=== PATIENT | female | born 1980 | race Caucasian/White ===

== ENCOUNTER 2023-10-24 12:00 | Outpatient (OUT) | payer OTHER, SELFPAY ==
[2023-10-24 12:52] LABS: Basophils Absolute Auto 0.1 10^3/uL (0.0-0.1); Basophils Percent Auto 0.6 % (0.2-2.0); Eosinophils Absolute Auto 0.2 10^3/uL (0.0-0.7); Eosinophils Percent Auto 2.5 % (0.9-7.0); Hematocrit 39.6 % (36.0-48.0); Hemoglobin 12.8 g/dL (12.0-16.0); Immature Granulocytes Abs Auto 0.02 10^3/uL (0.00-0.03); Immature Granulocytes Pct Auto 0.2 % (0.0-0.5); Lymphocytes Absolute Auto 2.4 10^3/uL (1.2-3.8); Lymphocytes Percent Auto 27.5 % (20.5-60.0); Mean Corpuscular HGB Conc 32.3 g/dL (29.9-35.2); Mean Corpuscular Hemoglobin 27.1 pg (26.7-34.0); Mean Corpuscular Volume 83.9 fL (81.0-99.0); Monocytes Absolute Auto 0.6 10^3/uL (0.3-0.8); Monocytes Percent Auto 6.3 % (1.7-12.0); Neutrophils Absolute Auto 5.6 10^3/uL (1.4-6.5); Neutrophils Percent Auto 62.9 % (43.0-75.0); Platelet Count 527 10^3/uL (150-450); Red Blood Count 4.72 10^6/uL (4.20-5.40); Red Cell Distribution Width 14.1 % (11.0-15.0); White Blood Count 8.9 10^3/uL (4.0-11.0)
== END 2023-10-24 12:01 | disposition home or self-care (01) ==
LOC: LAB 12:05
PROVIDERS: PCP Family Medicine; Visit Provider Family Medicine
DX: D72.829 Elevated white blood cell count, unspecified (principal); D50.9 Iron deficiency anemia, unspecified
CPT/HCPCS: 36415; 82728; 85025

== ENCOUNTER 2023-10-26 12:29 | Outpatient (OUT) | payer OTHER, SELFPAY ==
--- OUTSIDE RECORDS SUMMARY | 2023-10-26 12:43 | XMS_ITS | CCD ---
Author Name Unknown Address [address] [facility] [address] [place] [id number] Organization [facility] Care Team Providers Care Shoulder Puncher Name Role Phone PHYSICIAN, DEFAULT Unavailable Unavailable PHYSICIAN, DEFAULT Unavailable Unavailable [place], EHAB A Unavailable Unavailable [place], EHAB A Unavailable Unavailable TAYA ESPINOSA Unavailable Unavailable SUKHWINDER, TAYA Unavailable Unavailable Taya Espinosa Unavailable DR TAYA ESPINOSA Consulting Unavailable ESPINOSA, DR TAYA Valderrama Primary Care Unavailable SUKHWINDER, DR TAYA Valderrama Admitting Unavailable SUKHWINDER, DR TAYA Valderrama Attending Unavailable SUKHWINDER, DR TAYA Valderrama Primary Care Unavailable JASMINE DENG Attending Unavailable JASMINE DENG Consulting Unavailable JASMINE DENG Admitting Unavailable VALERIE GEORGE Consulting Unavailable [place], EHAB Attending Unavailable JASMINE DENG Attending Unavailable Allergies Allergy Classification Reported Allergen(s) Allergy Type Date of Onset Reaction(s) Facility (2 sources) No Known Allergies; Translations: [No Known Allergies] Propensity to adverse reactions (disorder) 7 [facility] Repository (1 source) patient allergy list reviewed by nurse or physicia Propensity to adverse reactions 4 Comment:Done [facility] Other (1 source) Allergies Reconciled Propensity to adverse reactions Unknown [facility] Other (1 source) varenicline; Translations: [VARENICLINE] Drug Allergy 3 [facility] Medications Current Medications Medication Drug Class(es) Dates Sig (Normalized) Sig (Original) amLODIPine 10 mg oral tablet (4 sources) Dihydropyridine Calcium Channel Vannessa take 1 tablet by mouth every twenty-four hours amLODIPine Besylate 10 MG 1 tablet Orally Once a day Active 12 hr buPROPion hydrochloride 150 mg extended release oral tablet (4 sources) Aminoketone take 1 tablet by mouth every twenty-four hours Wellbutrin SR 150 MG 1 tablet in the morning Orally Once a day Active hydroCHLOROthiazide 12.5 mg / losartan potassium 50 mg oral tablet (4 sources) Thiazide Diuretic, Angiotensin 2 Receptor Vannessa take 1 tablet by mouth every twenty-four hours Losartan Potassium-HCTZ 50-12.5 MG 1 tablet Orally Once a day Active Problems Active Problems Problem Classification Problem Date Documented Date Episodic/Chronic Anxiety disorders (1 source) Generalized anxiety disorder; Translations: [Generalized anxiety disorder] Chronic Deficiency and other anemia (1 source) Iron deficiency anemia; Translations: [Iron deficiency anemia, unspecified] Episodic Deficiency and other anemia (1 source) Iron deficiency anemia, unspecified Episodic Diseases of white blood cells (7 sources) Leukocytosis; Translations: [Elevated white blood cell count, unspecified] Onset: 01-06-2023 Chronic Essential hypertension (9 sources) Essential (primary) hypertension; Translations: [Benign essential hypertension] Onset: 04-25-2017 Chronic Hypertension with complications and secondary hypertension (2 sources) Renovascular hypertension; Translations: [Renovascular hypertension] Onset: 10-24-2023 Chronic Malaise and fatigue (5 sources) Other fatigue; Translations: [OTHER FATIGUE] Onset: 01-03-2023 Episodic Other circulatory disease (7 sources) Arterial fibromuscular dysplasia; Translations: [ARTERIAL FIBROMUSCULAR DYSPLASIA] Onset: 05-25-2017 Chronic Other ear and sense organ disorders (1 source) Infective otitis externa; Translations: [Unspecified infective otitis externa] Onset: 08-05-2014 Chronic Other lower respiratory disease (2 sources) Other forms of dyspnea; Translations: [Other forms of dyspnea] Onset: 10-24-2023 Episodic Other skin disorders (1 source) Disorder of skin and/or subcutaneous tissue; Translations: [Disorder of the skin and subcutaneous tissue, unspecified] Episodic Other upper respiratory disease (1 source) Seasonal allergic rhinitis; Translations: [Other seasonal allergic rhinitis] Chronic Other upper respiratory infections (1 source) Chronic sinusitis; Translations: [Chronic sinusitis, unspecified] Chronic Residual codes; unclassified (1 source) Tobacco user; Translations: [Nondependent tobacco use disorder] Episodic Residual codes; unclassified (1 source) Family history of diabetes mellitus; Translations: [Family history of diabetes mellitus] Episodic Substance-related disorders (1 source) Nicotine dependence, unspecified, uncomplicated; Translations: [NICOTINE DEPENDENCE, UNSPECIFIED, UNCOMPLICATED] Onset: 05-25-2017 Chronic Unclassified (2 sources) Unknown / UNK(Unknown) Onset: 05-25-2017 Past or Other Problems Problem Classification Problem Date Documented Da te Episodic/Chronic Other non-traumatic joint disorders (1 source) Hand joint pain; Translations: [Pain in joint, hand] Onset: 12-16-2014 Episodic Other upper respiratory infections (2 sources) Acute pharyngitis; Translations: [Acute pharyngitis, unspecified] Onset: 06-04-2013 Episodic Results Test Name Value Interpretation Reference Range Facility Office Visiton 10-24-2023 Follow-up visit [id number] Ciro [place] 1980 F Date Provider Department Center 10/24/2023 Cristela-DIANNA JACKSON [facility] Family History Problem Relation Age of Onset Heart attack Mother Diabetes Mother Heart attack Father Family Status - Relation Status Age at Mother Father Level of Service:63904 ID OFFICE/OUTPATIENT ESTABLISHED MOD MDM 30 MIN Normal [facility] CBC AUTO DIFFon 01-03-2023 BASO # 0.1 103/ul Normal 0.0-0.1 [facility] Comment on above: Performed By: #### CBC #### [facility] [address] [place] [address] Dr. Quincy Alaniz Basophils/100 WBC (Bld) 0.5 % Normal 0.2-2.0 [facility] Comment on above: Performed By: #### CBC #### [facility] [address] [place] [address] Dr. Quincy Alaniz EO # 0.4 103/ul Normal 0.0-0.7 [facility] Comment on above: Performed By: #### CBC #### [facility] [address] [place] [address] Dr. Quincy Alaniz Eosinophils/100 WBC (Bld) 4.1 % Normal 0.9-7.0 [facility] Comment on above: Performed By: #### CBC #### [facility] [address] [place] [address] Dr. Quincy Alaniz Erythrocyte distribution width (RBC) [Ratio] 15.9 % Critically high 11.0-15.0 [facility] Comment on above: Performed By: #### CBC #### [facility] [address] [place] [address] Dr. Quincy Alaniz Hematocrit (Bld) [Volume fraction] 39.2 % Normal 36.0-48.0 [facility] Comment on above: Performed By: #### CBC #### [facility] [address] [place] [address] Dr. Quincy Alaniz Hemoglobin (Bld) [Mass/Vol] 12.4 g/dL Normal 12.0-16.0 [facility] Comment on above: Performed By: #### CBC #### [facility] [address] [place] [address] Dr. Quincy Alaniz IG # 0.03 10e3/ul Normal 0.00-0.03 [facility] Comment on above: Performed By: #### CBC #### [facility] [address] [place] [address] Dr. Quincy Alaniz IG % 0.3 % Normal 0.0-0.5 [facility] Comment on above: Performed By: #### CBC #### [facility] [address] [place] [address] Dr. Quincy Alaniz LYMPH # 2.9 103/ul Normal 1.2-3.8 [facility] Comment on above: Performed By: #### CBC #### [facility] [address] [place] [address] Dr. Quincy Alaniz Lymphocytes/100 WBC (Bld) 30.3 % Normal 20.5-60.0 [facility] Comment on above: Performed By: #### CBC #### [facility] [address] [place] [address] Dr. Quincy Alaniz MANUAL DIFF REQ NO Normal [facility] Comment on above: Performed By: #### CBC #### [facility] [address] [place] [address] Dr. Quincy Alaniz MCH (RBC) [Entitic mass] 25.6 pg Critically low 26.7-34.0 [facility] Comment on above: Performed By: #### CBC #### [facility] [address] [address] [address] Quincy Alaniz MCHC (RBC) [Mass/Vol] 31.6 g/dL Normal 29.9-35.2 [facility] Comment on above: Performed By: #### CBC #### [facility] [address] [address] [address] Quincy Alaniz MCV (RBC) [Entitic vol] 80.8 fL Critically low 81.0-99.0 [facility] Comment on above: Performed By: #### CBC #### [facility] [address] [place] [address] Dr. Quincy Alaniz MONO # 0.7 103/ul Normal 0.3-0.8 [facility] Comment on above: Performed By: #### CBC #### [facility] [address] [place] [address] Dr. Quincy Alaniz Monocytes/100 WBC (Bld) 7.4 % Normal 1.7-12.0 [facility] Comment on above: Performed By: #### CBC #### [facility] [address] [place] [address] Dr. Quincy Alaniz NEUT # 5.6 103/ul Normal 1.4-6.5 [facility] Comment on above: Performed By: #### CBC #### [facility] [address] [place] [address] Dr. Quincy Alaniz Neutrophils/100 WBC (Bld) 57.4 % Normal 43.0-75.0 [facility] Comment on above: Performed By: #### CBC #### [facility] [address] [address] [address] Quincy Alaniz Platelet mean volume (Bld) [Entitic vol] 8.6 fL Critically low 9.5-13.5 [facility] Comment on above: Performed By: #### CBC #### [facility] [address] [place] [address] Dr. Quincy Alaniz PLT 481 103/ul Critically high 150-450 [facility] Comment on above: Performed By: #### CBC #### [facility] [address] [address] [address] Quincy Alaniz RBC 4.85 106/ul Normal 4.20-5.40 [facility] Comment on above: Performed By: #### CBC #### [facility] [address] [address] [address] Quincy Alaniz WBC 9.7 103/ul Normal 4.0-11.0 [facility] Comment on above: Performed By: #### CBC #### [facility] [address] [address] [address] Quincy Alaniz FERRITINon 01-03-2023 Ferritin [Mass/Vol] 8.0 ng/mL Normal 6.2-137.0 [facility] Comment on above: Performed By: #### FERR #### [facility] [address] [place] [address] Dr. Quincy Alaniz 36on 12-29-2022 36 Please let her know her labs showed her kidney and liver function are normal. Her white blood cells are elevated along with some other blood counts that are abnormal. Please send results to PCP and have patient follow-up with PCP for further evaluation. Her bad cholesterol level (LDL) is elevated. Recommend heart healthy diet (low salt, less red meats and more chicken/fish/turkey, avoid processed and fried foods, more fruits and veggies - Mediterranean diet is a good diet to follow) along with routine exercise (recommend goal of 30 mins moderate intensity 5 days a week). Thank you Normal [facility] Telephoneon 12-29-2022 Telephone [id number] Ciro [place] 1980 F Date Provider Department [facility] Family History Problem Relation Age of Onset Heart attack Mother Diabetes Mother Heart attack Father Family Status - Relation Status Age at Mother Father Normal [facility] CBC AUTO DIFFon 12-16-2022 BASO # 0.1 103/ul Normal 0.0-0.1 [facility] Comment on above: Performed By: #### CBC #### [facility] [address] [place] [address] Dr. Quincy Alaniz Basophils/100 WBC (Bld) 0.3 % Normal 0.2-2.0 [facility] Comment on above: Performed By: #### CBC #### [facility] [address] [place] [address] Dr. Quincy Alaniz EO # 0.4 103/ul Normal 0.0-0.7 [facility] Comment on above: Performed By: #### CBC #### [facility] [address] [place] [address] Dr. Quincy Alaniz Eosinophils/100 WBC (Bld) 1.7 % Normal 0.9-7.0 [facility] Comment on above: Performed By: #### CBC #### [facility] [address] [place] [address] Dr. Quincy Alaniz Erythrocyte distribution width (RBC) [Ratio] 15.1 % Critically high 11.0-15.0 [facility] Comment on above: Performed By: #### CBC #### [facility] [address] [place] [address] Dr. Quincy Alaniz Hematocrit (Bld) [Volume fraction] 39.6 % Normal 36.0-48.0 [facility] Comment on above: Performed By: #### CBC #### [facility] [address] [place] [address] Dr. Quincy Alaniz Hemoglobin (Bld) [Mass/Vol] 12.8 g/dL Normal 12.0-16.0 [facility] Comment on above: Performed By: #### CBC #### [facility] [address] [place] [address] Dr. Quincy Alaniz IG # 0.09 10e3/ul Critically high 0.00-0.03 [facility] Comment on above: Performed By: #### CBC #### [facility] [address] [place] [address] Dr. Quincy Alaniz IG % 0.4 % Normal 0.0-0.5 [facility] Comment on above: Performed By: #### CBC #### [facility] [address] [place] [address] Dr. Quincy Alaniz LYMPH # 2.4 103/ul Normal 1.2-3.8 [facility] Comment on above: Performed By: #### CBC #### [facility] [address] [place] [address] Dr. Quincy Alaniz Lymphocytes/100 WBC (Bld) 11.5 % Critically low 20.5-60.0 [facility] Comment on above: Performed By: #### CBC #### [facility] [address] [place] [address] Dr. Quincy Alaniz MANUAL DIFF REQ NO Normal [facility] Comment on above: Performed By: #### CBC #### [facility] [address] [place] [address] Dr. Quincy Alaniz MCH (RBC) [Entitic mass] 25.7 pg Critically low 26.7-34.0 [facility] Comment on above: Performed By: #### CBC #### [facility] [address] [place] [address] Dr. Quincy Alaniz MCHC (RBC) [Mass/Vol] 32.3 g/dL Normal 29.9-35.2 [facility] Comment on above: Performed By: #### CBC #### [facility] [address] [place] [address] Dr. Quincy Alaniz MCV (RBC) [Entitic vol] 79.4 fL Critically low 81.0-99.0 [facility] Comment on above: Performed By: #### CBC #### [facility] [address] [place] [address] Dr. Quincy Alaniz MONO # 1.2 103/ul Critically high 0.3-0.8 [facility] Comment on above: Performed By: #### CBC #### [facility] [address] [place] [address] Dr. Quincy Alaniz Monocytes/100 WBC (Bld) 5.4 % Normal 1.7-12.0 [facility] Comment on above: Performed By: #### CBC #### [facility] [address] [place] [address] Dr. Quincy Alaniz NEUT # 17.2 103/ul Critically high 1.4-6.5 [facility] Comment on above: Performed By: #### CBC #### [facility] [address] [address] [address] Quincy Alaniz Neutrophils/100 WBC (Bld) 80.7 % Critically high 43.0-75.0 [facility] Comment on above: Performed By: #### CBC #### [facility] [address] [address] [address] Quincy Alaniz Platelet mean volume (Bld) [Entitic vol] 8.6 fL Critically low 9.5-13.5 [facility] Comment on above: Performed By: #### CBC #### [facility] [address] [place] [address] Dr. Quincy Alaniz PLT 530 103/ul Critically high 150-450 [facility] Comment on above: Performed By: #### CBC #### [facility] [address] [place] [address] Dr. Quincy Alaniz RBC 4.99 106/ul Normal 4.20-5.40 [facility] Comment on above: Performed By: #### CBC #### [facility] [address] [place] [address] Dr. Quincy Alaniz WBC 21.3 103/ul Critically high 4.0-11.0 [facility] Comment on above: Performed By: #### CBC #### [facility] [address] [place] [address] Dr. Quincy Alaniz LIPID PROFILEon 12-16-2022 CHOL-HDL RATIO NORM SEE BELOW Normal [facility] Comment on above: Result Comment: 3.3 - 4.4 LOW RISK 4.4 - 7.1 AVERAGE RISK 7.1 - 11.0 MODERATE RISK >11.0 HIGH RISK Performed By: #### C MP, LIPID #### [facility] [address] [place] [address] Dr. Quincy Alaniz Cholesterol [Mass/Vol] 180 mg/dL Normal <=200 [facility] Comment on above: Performed By: #### CMP, LIPID #### [facility] [address] [place] [address] Dr. Quincy Alaniz Cholesterol in HDL [Mass/Vol] 29 mg/dL Critically low 40-60 [facility] Comment on above: Performed By: #### CMP, LIPID #### [facility] [address] [place] [address] Dr. Quincy Alaniz Cholesterol in LDL [Mass/Vol] 132.8 mg/dL Normal [facility] Comment on above: Performed By: #### CMP, LIPID #### [facility] [address] [place] [address] Dr. Quincy Alaniz Cholesterol.tota l/Cholesterol in HDL [Mass ratio] 6.2 {ratio} Normal [facility] Comment on above: Performed By: #### CMP, LIPID #### [facility] [address] [place] [address] Dr. Quincy Alaniz HDL NORMAL > or = 60 mg/dl - LO W CARDIOVASCULAR RISK <40 mg/dl - HIGH CARDIOVASCULAR RISK Normal [facility] Comment on above: Performed By: #### CMP, LIPID #### [facility] [address] [place] [address] Dr. Quincy Alaniz LDL CALC NORMAL SEE BELOW Normal [facility] Comment on above: Result Comment: <100 mg/dl OPTIMAL 100 - 129 mg/dl NEAR OR ABOVE OPTIMAL 130 - 159 mg/dl BORDERLINE HIGH 160 - 189 mg/dl HIGH >190 mg/dl VERY HIGH Performed By: #### C MP, LIPID #### [facility] [address] [place] [address] Dr. Quincy Alaniz Triglyceride [Mass/Vol] 91 mg/dL Normal <=150 [facility] Comment on above: Performed By: #### CMP, LIPID #### [facility] [address] [place] [address] Dr. Qunicy Alaniz VLDL CALC 18.2 mg/dL Normal [facility] Comment on above: Performed By: #### CMP, LIPID #### [facility] [address] [place] [address] Dr. Quincy Alaniz PROF 14(COMP METB)on 023 Albumin [Mass/Vol] 3.7 g/dL Normal 3.4-5.0 [facility] Comment on above: Performed By: #### CMP, LIPID #### [facility] [address] [address] [address] Quincy Alaniz Albumin/Globulin [Mass ratio] 0.8 {ratio} Normal [facility] Comment on above: Performed By: #### CMP, LIPID #### [facility] [address] [address] [address] Quincy Alaniz ALP [Catalytic activity/Vol] 105 U/L Normal 46-116 [facility] Comment on above: Performed By: #### CMP, LIPID #### [facility] [address] [address] [address] Quincy Alaniz ALT [Catalytic activity/Vol] 24 U/L Normal 14-59 [facility] Comment on above: Performed By: #### CMP, LIPID #### [facility] [address] [place] [address] Dr. Quincy Alaniz Anion gap [Moles/Vol] 11.1 mmol/L Normal [facility] Comment on above: Performed By: #### CMP, LIPID #### [facility] [address] [place] [address] Dr. Quincy Alaniz AST [Catalytic activity/Vol] 14 U/L Critically low 15-37 [facility] Comment on above: Performed By: #### CMP, LIPID #### [facility] [address] [place] [address] Dr. Quincy Alaniz Bilirubin [Mass/Vol] 0.3 mg/dL Normal 0.2-1.0 [facility] Comment on above: Performed By: #### CMP, LIPID #### [facility] [address] [place] [address] Dr. Quincy Alaniz Calcium [Mass/Vol] 9.2 mg/dL Normal 8.5-10.1 [facility] Comment on above: Performed By: #### CMP, LIPID #### [facility] [address] [place] [address] Dr. Quincy Alaniz Chloride [Moles/Vol] 100 mmol/L Normal 98-107 [facility] Comment on above: Performed By: #### CMP, LIPID #### [facility] [address] [place] [address] Dr. Quincy Alaniz CO2 [Moles/Vol] 26.8 mmol/L Normal 21.0-32.0 [facility] Comment on above: Performed By: #### CMP, LIPID #### [facility] [address] [place] [address] Dr. Quincy Alaniz Creatinine [Mass/Vol] 0.68 mg/dL Normal 0.55-1.02 [facility] Comment on above: Performed By: #### CMP, LIPID #### [facility] [address] [place] [address] Dr. Quincy Alaniz EGFR-AF CITIZEN OF [place] >60 Normal >=60 [facility] Comment on above: Performed By: #### CMP, LIPID #### [facility] [address] [place] [address] Dr. Quincy Alaniz EGFR-NON AF CITIZEN OF [place] >60 Normal >=60 [facility] Comment on above: Performed By: #### CMP, LIPID #### [facility] [address] [place] [address] Dr. Quincy Alaniz Globulin (S) [Mass/Vol] 4.9 g/dL Normal [facility] Comment on above: Performed By: #### CMP, LIPID #### [facility] [address] [place] [address] Dr. Quincy Alaniz Glucose [Mass/Vol] 113 mg/dL Critically high 74-106 [facility] Comment on above: Performed By: #### CMP, LIPID #### [facility] [address] [place] [address] Dr. Quincy Alaniz Potassium [Moles/Vol] 3.9 mmol/L Normal 3.5-5.1 [facility] Comment on above: Performed By: #### CMP, LIPID #### [facility] [address] [place] [address] Dr. Quincy Alaniz Protein [Mass/Vol] 8.6 g/dL Critically high 6.4-8.2 [facility] Comment on above: Performed By: #### CMP, LIPID #### [facility] [address] [place] [address] Dr. Quincy Alaniz Sodium [Moles/Vol] 134 mmol/L Critically low 136-145 [facility] Comment on above: Performed By: #### CMP, LIPID #### [facility] [address] [place], [place] [address] Dr. Quincy Alaniz Urea nitrogen [Mass/Vol] 9.0 mg/dL Normal 7.0-18.0 [facility] Comment on above: Performed By: #### CMP, LIPID #### [facility] [address] [place], [place] [address] Dr. Quincy Alaniz Urea nitrogen/Creatin ine [Mass ratio] 13.2 mg/mg Normal [facility] Comment on above: Performed By: #### CMP, LIPID #### [facility] [facility] [address], [place] [address] Dr. Quincy Alaniz US KIDNEYSon 12-16-2022 US KIDNEYS US KIDNEYS: 3 10:00 AM EDT CLINICAL HISTORY: 42 years old Female with Essential hypertension. TECHNIQUE: Bilateral renal ultrasound is performed, with transverse and longitudinal images submitted. COMPARISON: None FINDINGS: The right kidney measures 12.2 x 5.8 x 4.4 cm, the left kidney measures 11.1 x 4.5 x 4.7 cm in greatest lengthwise, AP, and transverse dimensions respectively. The right and left kidneys have a normal sonographic appearance. No renal mass or hydronephrosis is seen. Corticomedullary differentiation is preserved bilaterally. There is a calculus in the right kidney measuring up to 0.5 cm. IMPRESSION: Right nephrolithiasis without hydronephrosis. Electronically authenticated by: VALERIE GEORGE Date: 2022-12-16 13:08 Normal [facility] Office Visiton 12-09-2022 Follow-up visit [id number] Ciro Washington 1980 F Date Provider Department Center 12/09/2022 JASMINE ADAMS [facility] Family History Problem Relation Age of Onset Heart attack Mother Diabetes Mother Heart attack Father Family Status - Relation Status Age at Mother Father Level of Service:[id number] ID OFFICE/OUTPATIENT ESTABLISHED MOD MDM 30-39 MIN Reason for Visit and Comments: Follow-up [[id number]] - Pt is here for 1 year F/U Normal [facility] BASIC METABOLIC PANELon 09-2 Calcium 8.6 mg/dL Normal 8.6-10.3 [facility] Comment on above: Order Comment: No: Do not add to previou s draw Performed By: #### 0 0071 ####[facility] [place] [address], [facility] Chloride 107 mmol/L Normal 98-107 [facility] Comment on above: Order Comment: No: Do not add to previou s draw Performed By: #### 0 0071 ####[facility] [place] [address], [facility] CO2 21 mmol/L Normal 21-31 [facility] Comment on above: Order Comment: No: Do not add to previou s draw Performed By: #### 0 0071 ####[facility] [place] [address], [facility] Creatinine 0.69 mg/dL Normal 0.60-1.20 [facility] Comment on above: Order Comment: No: Do not add to previou s draw Performed By: #### 0 0071 ####[facility] [place] [address], [facility] eGFR (black) mL/min/{1.73_m2} Normal >60 [facility] Comment on above: Order Comment: No: Do not add to previou s draw Performed By: #### 0 0071 ####[facility] [place] [address], [facility] eGFR (non-black) mL/min/{1.73_m2} Normal >60 [facility] e [facility] Comment on above: Order Comment: No: Do not add to previou s draw Performed By: #### 0 0071 ####[facility] [place] [address], [place] Glucose mass conc 95 mg/dL Normal 70-100 [facility] Comment on above: Order Comment: No: Do not add to previou s draw Performed By: #### 0 0071 ####[facility] Potassium molar conc 4.6 mmol/L Normal 3.5-5.1 [facility] Comment on above: Order Comment: No: Do not add to previou s draw Performed By: #### 0 0071 ####[facility] [facility].[address] Sodium 134 mmol/L Low 136-145 [facility] Comment on above: Order Comment: No: Do not add to previou s draw Performed By: #### 0 0071 ####[facility] [facility].[address] Urea nitrogen 11 mg/dL Normal 7-25 [facility] Comment on above: Order Comment: No: Do not add to previou s draw Performed By: #### 0 0071 ####[facility] [facility].[address] CBC W/DIFFon 05-26-2017 Basophils Auto #/vol (Bld) 0.5 % Normal 0.0-2.0 [facility] Comment on above: Order Comment: No: Do not add to previou s draw Performed By: #### 5 0103 ####[facility] [facility].[address] Eosinophils/100 leukocytes 2.4 % Normal 0.0-5.0 [facility] Comment on above: Order Comment: No: Do not add to previou s draw Performed By: #### 5 0103 ####[facility] Erythrocyte distribution width Auto Ratio (RBC) 16.8 % Normal 11.5-16.9 [facility] Comment on above: Order Comment: No: Do not add to previou s draw Performed By: #### 5 0103 ####[facility] Erythrocytes (RBC) 4.30 mill/mm3 Normal 3.50-5.50 [facility] Comment on above: Order Comment: No: Do not add to previou s draw Performed By: #### 5 0103 ####[facility].[address] Hematocrit (HCT) 35.3 % Low 36.0-48.0 [facility] Comment on above: Order Comment: No: Do not add to previou s draw Performed By: #### 5 0103 ####[facility].[address] Hemoglobin mass conc (Bld) 11.5 g/dL Low 12.0-15.0 [facility] Comment on above: Order Comment: No: Do not add to previou s draw Performed By: #### 5 0103 ####[facility] [facility].[address] Lymphocytes/100 leukocytes 27.9 % Normal 20.0-40.0 [facility] Comment on above: Order Comment: No: Do not add to previou s draw Performed By: #### 5 0103 ####[facility] [facility].[address] MCH 26.8 pg Normal 24.0-32.0 [facility] Comment on above: Order Comment: No: Do not add to previou s draw Performed By: #### 5 0103 ####[facility] [facility].[address] MCHC mass conc (RBC) 32.6 g/dL Normal 32.0-36.0 [facility] Comment on above: Order Comment: No: Do not add to previou s draw Performed By: #### 5 0103 ####[facility] [place] [address], [facility] MCV 82.2 fL Normal 80.0-100.0 [facility] Comment on above: Order Comment: No: Do not add to previou s draw Performed By: #### 5 0103 ####[facility] [place] [address], [facility] METHOD Normal RBC Morphology Normal [facility] Comment on above: Order Comment: No: Do not add to previou s draw Performed By: #### 5 0103 ####[facility] [place] [address], [facility] MONOS 9.3 % High 2-8 [facility] Comment on above: Order Comment: No: Do not add to previou s draw Performed By: #### 5 0103 ####[facility] [place] [address], [facility] Neutrophils/100 leukocytes 59.9 % Normal 50-70 [facility] Comment on above: Order Comment: No: Do not add to previou s draw Performed By: #### 5 0103 ####[facility] [place] [address], [facility] PLAT CNT 237 Thou/mm3 Normal 100-400 [facility] Comment on above: Order Comment: No: Do not add to previou s draw Performed By: #### 5 0103 ####[facility] [place] [address], [facility] WBC (Leukocytes) 7.2 Thou/mm3 Normal 4.0-10.0 [facility] Comment on above: Order Comment: No: Do not add to previou s draw Performed By: #### 5 0103 ####[facility] [place] [address], [facility] Cardiovascular Lab Reporton 05-26-2017 Cardiovascular Lab Report [facility]: [id number] Physician: Dianna JacksonDepartment of M.D.Medicine Service Date: 05/25/2017Division of Birthdate: 1980Cardiology Room #: 3AB [id number] [facility] [address] [place], [place] [address]Odnvs Fax Cardiovascular Laboratory ReportFINAL IMPRESSIONS:1. 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 No evidence of aneurysmal dilation or stenosis in the abdominal aorta.RECOMMENDATIONS:1. Aggressive cardiovascular risk factor modification.2. Optimization of medical management; the patient's antihypertensive regimen will be continued for now. Consider weaning off the medicine depending on her response to balloon angioplasty.3. Follow up with Dr. Mena or myself in the [facility] in the next 3-4 weeks.4. Follow up with Dr. Espinosa as scheduled.PROCEDURES:1. Catheter placement in the abdominal aorta.2. Abdominal aortography.3. Bilateral selective renal angiography.4. Balloon angioplasty of the right renal artery.5. Placement of a 6-Haitian MynxGrip closure device.METHODS: After risks, benefits, and alternatives were explained, writteninformed consent was obtained. The patient was prepped and draped in theusual sterile fashion over both groins. Using 1% lidocaine solution localinfiltration, anesthesia was achieved. Using a modified Seldingertechnique, access to the right common femoral artery was obtained utilizinga micropuncture kit. A 5-Haitian 11-cm sheath was inserted withoutdifficulty. Baseline femoral angiography was performed.A 5-Haitian Uni-Flush catheter was advanced over a J-wire and positioned inthe abdominal aorta. Abdominal aortography was performed under digitalsubtraction.A 5-Haitian JR4 diagnostic catheter was used for bilateral renalangiography. After reviewing the images, it was elected to proceed with aninterventional procedure.The 5-Haitian sheath was upsized to a 6-Haitian 11-cm sheath. A 6-Haitian IMcatheter was advanced over a J-wire and engaged into the right renalartery. A 0.014 Runthrough NS wire was advanced through the catheteracross the suspect stenoses and positioned distally. Balloon angioplastywas subsequently performed using a 5 x 20 Rafael balloon. The balloonwas removed. Angiography was repeated, which showed a markedly improvedresult. The wire was removed. Final angiography showed excellent flowinto the kidney vessels with no evidence of dye extravasation, vesseltrauma, or thrombosis. The catheter was removed.A 6-Haitian MynxGrip closure device was deployed per protocol, achievingoptimal hemostasis. Overall, the patient tolerated the procedure well.There were no overt complications. [facility]FINDINGS: HEMODYNAMICS: AO 126/72 (97).ABDOMINAL AORTOGRAPHY: This shows no significant stenotic or aneurysmalsegments. There appeared to be 2 renal vessels on the left and a singlerenal vessel on the right.RENAL ANGIOGRAPHY: Left Renal Angiography: There are a superior mainrenal artery and an inferior accessory renal artery. The accessory renalshows mild fibromuscular dysplasia with beading in the midportion of thevessel. There is a brisk nephrogram. No filling defects are seen.Right Renal Angiography: There is a single renal artery. There appears cristel significant beading in the midportion of the vessel, highly suggestiveof fibromuscular dysplasia. There is a brisk nephrogram pre and postangioplasty. Angioplasty of the lesion was performed using a 5 x 20Sterling balloon. Final images show excellent contrast filling with noextravasation, no thrombosis or vessel trauma.Limited femoral angiography shows no significant plaque and anatomysuitable for a closure device.INDICATIONS: Ms. Washington is a 36-year-old woman who developed new onsethypertension with systolic blood pressures in the 220 range. RenalDopplers suggested elevated velocities in the mid renal artery. She wasreferred for renal angiography plus or minus revascularization forsuspected fibromuscular dysplasia given her age and demographics. Findingsand management strategies are outlined above.Electronically Signed by:Dianna Jackson M.D. 06/14/2017 12:10 P Dianna Jackson M.D.Date Dict: 05/25/2017/02:08 Thao/Dianna Jackson M.D.Date Trans: 05/26/2017 05:38 A/EstellaN_[id number]: Taya Espinosa M.D. [address] [place] [id number] Sima Mena M.D. [address] [address] [facility] Vital Signs Date Time Vital Sign Value Performing Clinician Facility 01-03-2023 15:45-0400 Body height 154.94 cm Taya Espinosa Other [facility] Other 01-03-2023 15:45-0400 Body mass index (BMI) [Ratio] 25.13 kg/m2 Taya Espinosa Other [facility] Other 01-03-2023 15:45-0400 Body weight 60.33 kg Taya Espinosa Other [facility] Other 01-03-2023 15:45-0400 Diastolic blood pressure 68 mm[Hg] Taya Espinosa Other [facility] Other 01-03-2023 15:45-0400 SaO2% (BldA) [Mass fraction] 97 % Taya Espinosa Other [facility] Other 01-03-2023 15:45-0400 Systolic blood pressure 116 mm[Hg] Taya Espinosa Other [facility] Other Encounters Encounter Date Encounter Type Care Provider Facility Start: 10-24-2023 End: 10-24-2023 ambulatory DIANNA JACKSON [facility] Start: 10-06-2023 End: 10-06-2023 ambulatory Taya Espinosa Other [facility] Other Start: 10-06-2023 Telephone encounter Taya Espinosa [facility] Start: 01-07-2023 End: 01-07-2023 ambulatory Taya Espinosa Other [facility] Other Start: 01-07-2023 Telephone encounter Taya Espinosa [facility] Start: 01-05-2023 End: 01-05-2023 ambulatory Taya Espinosa Other [facility] Other Start: 01-05-2023 Telephone encounter Taya Espinosa [facility] Start: 01-03-2023 End: 01-04-[address] TAYA ESPINOSA [facility] [employer] Other Start: 01-03-2023 Office outpatient visit 15 minutes Taya Espinosa [facility] Start: 12-16-2022 End: 12-17-[address] TAYA ESPINOSA Facility: Start: 12-09-2022 End: 12-09-2022 ambulatory [facility] Start: 05-25-2017 End: 05-26-2017 Ambulatory DARAB Tiffanie JACKSON Facility:[facility] Start: 05-11-2017 End: 05-12-2017 Ambulatory DEFAULT PHYSICIAN Facility:[facility] Immunizations Immunization Date Immunization Notes Care Provider Fa flavio 03-20-2017 tetanus toxoid, reduced diphtheria toxoid, and acellular pertussis vaccine, adsorbed Taya Espinosa Other [facility] Other 03-20-2017 diphtheria, tetanus toxoids and acellular pertussis vaccine, unspecified formulation Taya Espinosa Other [facility] Other Payers Date Payer Category Payer Private Health Insurance [id number] 1980 Unknown [id number] [id number] 1980 Unknown [id number] 1958 Unknown [id number] Unknown Social History Date Type Detail Facility Unknown if ever smoked [facility] Other Sex Assigned At Sex Assigned At Bir th [facility] Other Progress note 10-24-2023 Note Date & Type Note Facility 10-24-2023 Note [facility] Cardiology Clinic Note Chief Complaint: Patient here for 10 mo follow up fibromuscular dysplasia of right renal artery and hypertension. Had renal US and labs after last apt in December 2022. She will have labs drawn after apt today for PCP to follow up on elevated WBC. Patient continues to deny chest pain, SOB, palpitations, and lightheadedness/syncope. HPI: Wayne Washington is a 43 y.o. female PMHx: HTN, fibromuscular dysplasia of wall of renal artery s/p RA stent, COVID-19 12/2020 She denies any changes since last seen. BP at home typically running 130s/80s. No current exercise routine. She is on her feet at lot at work along with keeping busy with things at home. Denies CP, dyspnea, DAO, orthopnea, PND, palpitations, dizziness/lightheadedness, lower extremity edema, syncope. She continues to smoke, she is interested in quitting. UPDATE 10/24/2023 Doing well; blood pressure is controlled as long as she takes her medications Has had mild shortness of breath and lower extremity edema intermittently No significant chest pain Cardiology ROS: Review of Systems Cardiovascular: Positive for dyspnea on exertion (intermittent, resolves by morning). All other systems reviewed and are negative. Past Medical History She has a past medical history of Diabetes mellitus ([facility]) and Hypertension. Surgical History She has no past surgical history on file. Social History She reports that she has been smoking cigarettes. She has a 7.50 pack-year smoking history. She does not have any smokeless tobacco history on file. She reports current alcohol use. No history on file for drug use. Family History Family History Problem Relation Name Age of Onset Heart attack Mother Diabetes Mother Heart attack Father Allergies Chantix [varenicline] Medications Current Outpatient Medications: amLODIPine (Norvasc) 10 mg tablet, Take 1 tablet (10 mg) by mouth in the morning., Disp: 90 tablet, Rfl: 3 buPROPion SR (Wellbutrin SR) 150 mg 12 hr tablet, Take 1 tablet (150 mg) by mouth in the morning and at bedtime. Do not crush, chew, or split. *Start by taking 1 tablet daily for 3 days then increase to twice daily*, Disp: 60 tablet, Rfl: 11 losartan (Cozaar) 50 mg tablet, losartan 50 mg tablet TAKE ONE TABLET BY MOUTH DAILY DIRECTED, Disp: 90 tablet, Rfl: 3 Last Recorded Vitals BP 114/78 (BP Location: Left arm, Patient Position: Sitting) Pulse 80 Ht 1.575 m (5' 2 ) Wt 59.4 kg (131 lb) SpO2 98% BMI 23.96 kg/m??? Physical Examination: GENERAL: alert and oriented x3, well developed, in no acute distress. HEAD: atraumatic, normocephalic. EYES: SABRINA, EOMI. NECK: trachea midline, no JVD present, no carotid bruits present. CARDIAC: S1, S2 present. RRR. No murmur, rubs, or gallops. RESPIRATORY: CTAB, no increased effort of breathing, no rales, rhonchi, or wheezing. ABDOMEN: soft, nontender, nondistended. EXTREMITIES: no lower extremity edema, peripheral pulses are 2+ bilaterally. No rash/skin discoloration present. NEURO: strength/sensation equal and symmetric in bilateral upper and lower extremities. PSYCH: appropriate mood, affect, and judgement. Echo 05/2017: EF greater than 55%, normal diastolic function, no significant valvular abnormalities Cardiovascular Laboratory Report (05/25/[address] Jackson) FINAL IMPRESSIONS: 1. Successful balloon angioplasty of fibromuscular dysplastic lesion in the right renal artery. 2. Evidence of fibromuscular dysplasia in a small accessory left renal artery. 3. No evidence of aneurysmal dilation or stenosis in the abdominal aorta. RECOMMENDATIONS: 1. Aggressive cardiovascular risk factor modification. 2. Optimization of medical management; the patient's antihypertensive regimen will be continued for now. Consider weaning off the medicine depending on her response to balloon angioplasty. 3. Follow up with Dr. Mena or myself in the [facility] in the next 3-4 weeks. 4. Follow up with Dr. Espinosa as scheduled. PROCEDURES: 1. Catheter placement in the abdominal aorta. 2. Abdominal aortography. 3. Bilateral selective renal angiography. 4. Balloon angioplasty of the right renal artery. 5. Placement of a 6-Haitian MynxGrip closure device. Assessment: Fibromuscular dysplasia of the right renal artery s/p balloon angioplasty Essential hypertension Dyspnea on exertion Leg swelling Smoker Plan: Continue current medical therapy which includes an angiotensin receptor vannessa and a calcium channel vannessa She is to monitor her blood pressure at home and let us know of any significant fluctuations At this juncture, given absence of significant symptoms, and no concerns regarding blood pressure control, would not pursue further renal testing A complete echocardiogram given her shortness of breath is warranted Return to clinic in 1 year or sooner should problems arise Dianna Jackson MD, MPH (more content not included)... [facility] Evaluation note 10-06-2023 Note Date & Type Note Facility 10-06-2023 Evaluation note Encounter Date Diagnosis Assessment Notes Oct, Leukocytosis, unspecified type (ICD-10 - D72.829) Oct, Iron deficiency anemia, unspecified iron deficiency anemia type (ICD-10 - D50.9) [facility] Other Evaluation note 01-03-2023 Note Date & Type Note Facility 01-03-2023 Evaluation note Encounter Date Diagnosis Assessment Notes January, Leukocytosis, unspecified type (ICD-10 - D72.829) Handwrote lab order to repeat CBC and ferritin. If referral needed, pt chooses the [facility] physician at the [facility]. January, Fatigue, unspecified type (ICD-10 - R53.83) Denies poor sleep problems or other issues. Reviewed labs, meds and d/w Wayne. [facility] Other Progress note 12-09-2022 Note Date & Type Note Facility 12-09-2022 Note [facility] SUBJECTIVE Chief Complaint Patient presents with Follow-up Pt is here for 1 year F/U Wayne Monroyley is a 42 y.o. female here for follow-up. HPI PMHx: HTN, fibromuscular dysplasia of wall of renal artery s/p RA stent, COVID-19 12/2020 She denies any changes since last seen. BP at home typically running 130s/80s. No current exercise routine. She is on her feet at lot at work along with keeping busy with things at home. Denies CP, dyspnea, DAO, orthopnea, PND, palpitations, dizziness/lightheadedness, lower extremity edema, syncope. She continues to smoke, she is interested in quitting. Patient Active Problem List Diagnosis Fibromuscular dysplasia of right renal artery (CMS/HCC) Past Medical History: Diagnosis Date Diabetes mellitus (CMS/HCC) Hypertension Family History Problem Relation Name Age of Onset Heart attack Mother Diabetes Mother Heart attack Father Social History Tobacco Use Smoking status: Every Day Packs/day: 0.50 Years: 15.00 Pack years: 7.50 Types: Cigarettes Substance Use Topics Alcohol use: Yes Allergies Allergen Reactions Chantix [Varenicline] Other Intolerance, vivid dreams, mood swings, irritability Review of Systems Constitutional: Negative for chills, decreased appetite, fever, malaise/fatigue and weight gain. Cardiovascular: Negative for chest pain, claudication, dyspnea on exertion, irregular heartbeat, leg swelling, near-syncope, orthopnea, palpitations, paroxysmal nocturnal dyspnea and syncope. OBJECTIVE Visit Vitals BP 131/85 (BP Location: Left arm, Patient Position: Sitting) Pulse 88 Wt 59.6 kg (131 lb 6.4 oz) SpO2 98% BMI 24.03 kg/m??? Smoking Status Every Day BSA 1.61 m??? Medications: Current Outpatient Medications: amLODIPine (Norvasc) 10 mg tablet, Take 1 tablet (10 mg) by mouth in the morning., Disp: 90 tablet, Rfl: 3 buPROPion SR (Wellbutrin SR) 150 mg 12 hr tablet, Take 1 tablet (150 mg) by mouth in the morning and at bedtime. Do not crush, chew, or split. *Start by taking 1 tablet daily for 3 days then increase to twice daily*, Disp: 60 tablet, Rfl: 11 losartan (Cozaar) 50 mg tablet, losartan 50 mg tablet TAKE ONE TABLET BY MOUTH DAILY DIRECTED, Disp: 90 tablet, Rfl: 3 Physical Exam Vitals reviewed. Constitutional: Appearance: Normal appearance. She is normal weight. HENT: Head: Normocephalic and atraumatic. Right Ear: External ear normal. Left Ear: External ear normal. Eyes: Extraocular Movements: Extraocular movements intact. Conjunctiva/sclera: Conjunctivae normal. Pupils: Pupils are equal, round, and reactive to light. Neck: Vascular: No carotid bruit. Cardiovascular: Rate and Rhythm: Normal rate and regular rhythm. Pulses: Normal pulses. Heart sounds: Normal heart sounds. Pulmonary: Effort: Pulmonary effort is normal. Breath sounds: Normal breath sounds. Abdominal: General: Bowel sounds are normal. Palpations: Abdomen is soft. Musculoskeletal: Cervical back: Neck supple. Right lower leg: No edema. Left lower leg: No edema. Skin: General: Skin is warm and dry. Neurological: General: No focal deficit present. Mental Status: She is alert and oriented to person, place, and time. Psychiatric: Mood and Affect: Mood normal. Behavior: Behavior normal. Thought Content: Thought content normal. Judgment: Judgment normal. Labs/Testing/Procedures: Echo 05/2017: EF greater than 55%, normal diastolic function, no significant valvular abnormalities Cardiovascular Laboratory Report (05/25/[address] Jackson) FINAL IMPRESSIONS: 1. Successful balloon angioplasty of fibromuscular dysplastic lesion in the right renal artery. 2. Evidence of fibromuscular dysplasia in a small accessory left renal artery. 3. No evidence of aneurysmal dilation or stenosis in the abdominal aorta. RECOMMENDATIONS: 1. Aggressive cardiovascular risk factor modification. 2. Optimization of medical management; the patient's antihypertensive regimen will be continued for now. Consider weaning off the medicine depending on her response to balloon angioplasty. 3. Follow up with Dr. Mena or myself in the [facility] in the next 3-4 weeks. 4. Follow up with Dr. Espinosa as scheduled. PROCEDURES: 1. Catheter placement in the abdominal aorta. 2. Abdominal aortography. 3. Bilateral selective renal angiography. 4. Balloon angioplasty of the right renal artery. 5. Placement of a 6-Haitian MynxGrip closure device. ASSESSMENT/PLAN: Diagnosis Plan 1. Fibromuscular dysplasia of right renal artery (CMS/HCC) Lipid panel Comprehensive metabolic panel CBC Vascular US renal artery duplex complete 2. Essential hypertension amLODIPine (Norvasc) 10 mg tablet losartan (Cozaar) 50 mg tablet Lipid panel Comprehensive metabolic panel CBC Vascular US renal artery duplex complete 3. Smoking trying to quit buPROPion SR (We (more content not included)... [facility] Evaluation note Note Date & Type Note Facility Evaluation note No Information [facility] [employer] Other History general Narrative - Reported Note Date & Type Note Facility History general Narrative - Reported Type Surgical History tubal ligation [facility] Other Summary Purpose Family History No Family History Records FoundNo Family History Records FoundNo Family History Records Found Advance Directives No Advanced Directives Records FoundNo Advanced Directives Records FoundNo Advanced Directives Records Found Additional Source Comments INFORMATION SOURCE (unrecogn ized section and content) DATE CREATED AUTHOR 02/28/[address] [facility] DATE CREATED AUTHOR AUTHOR'S ORGANIZ ATION 01/07/[address] [facility] DATE CREATED AUTHOR AUTHOR'S ORGANIZ ATION 10/25/2023 [facility] REASON FOR VISIT (unrecogniz ed section and content) Blood Work Discussionlabslab resultslabs FOR RECORDS PERTAINING TO PATIENTS WHO ARE OR HAVE BEEN ENROLLED IN A CHEMICAL DEPENDENCY/SUBSTANCEABUSE PROGRAM, SOME INFORMATION MAY BE OMITTED. This clinical summary was aggregated from multiple sources. Caution should be exercised in using it in the provision of clinical care. This summary normalizes information from multiple sources, and as a consequence, information in this document may materially change the coding, format and clinical context of patient data. In addition, data may be omitted in some cases. CLINICAL DECISIONS SHOULD BE BASED ON THE PRIMARY CLINICAL RECORDS. [employer] provides no warranty or guarantee of the accuracy or completeness of information in this document.
--- NOTE | 2023-10-26 13:00 | CA_ITS ---
Patient Name: DIANE MAHONEY MR#: [id number] : 1980 Exam Date: 10/26/2023 Ordering Doctor: DR BRANDON LEACH M.D. ECHOCARDIOGRAM REPORT PROCEDURE: CA ECHO DOPPLER COMPLETE INDICATIONS: Arterial fibromuscular dysplasia, HTN, Dyspnea, smoker COMPARISON: None. DESCRIPTION: COMPLETE ECHOCARDIOGRAM Real-time transthoracic echocardiography with 2D, M-mode, spectral and color flow Doppler performed. QUALITY: Technical quality was good. 61 , 130#, BSA 1.57 m2 LEFT VENTRICLE: Normal chamber size. Normal left ventricular wall thickness. Normal systolic function. LV EF: Normal left ventricular ejection fraction, (>55%). DIASTOLIC: Normal diastolic function. ATRIAL SEPTUM: Visually appears intact. LEFT ATRIUM: Normal chamber size. RIGHT ATRIUM: Normal chamber size. RIGHT VENTRICLE: Normal chamber size. Normal right ventricular systolic function. TRICUSPID VALVE: Normal mobility and thickness. No stenosis with no regurgitation. Unable to assess right-sided pressures due to lack of measurable tricuspid regurgitation. MITRAL VALVE: Normal mobility and thickness. No evidence of mitral valve stenosis. There is no mitral annular calcification. No mitral regurgitation. AORTIC VALVE: Normal trileaflet appearance. No visible sclerosis. Normal leaflet mobility. No evidence of aortic valve stenosis. No aortic regurgitation. AORTIC ROOT: Normal diameter and appearance. PULMONIC VALVE: Normal thickness and mobility. No stenosis. No regurgitation. PERICARDIUM: No evidence of pericardial effusion. IVC: Collapses with inspirations. PLEURA: CONCLUSION: 1. Normal ventricular systolic function. LVEF is 65%. 2. No significant valvular dysfunction. 3. Normal diastolic function. 4. No pericardial effusion. 5. Unable to assess right-sided pressures due to lack of measurable tricuspid regurgitation. Adult Echocardiography Procedure Report Left Ventricle LVEDD (3.7 - 5.6 cm): 3.90 cm LVESD (2.2 - 4.0 cm): 2.19 cm LVIVS thickness (0.6 - 1.2 cm): 0.75 cm LVPW thickness (0.5 - 1.0 cm): 0.93 cm E - e': 5.58 LVOT Max Gradient: 7.87 mm[Hg] LVOT Area (cm2): 1.40 m/s Peak Velocity (LVOT): 1.40 m/s Mean Velocity (LVOT): 0.89 m/s LVOT Diameter 1.91 cm Left Atrium LA Volume Index (2D A2C): 21.51 ml/m2 Left Atrium Systolic Dimension: 2.87 cm Mitral Valve MV E to A Ratio: 1.04, 1.02 Right Ventricle Aorta AO Root Diam: 2.94 cm Ascending Ao Diam: 2.68 cm Aortic Valve AoV Area (Peak Cesar): 2.30 cm2, 2.30 cm2 AoV Area (VTI): 2.24 cm2, 2.24 cm2 Peak Velocity(Antegrade Flow): 1.75 m/s, 1.61 m/s Peak Gradient(Antegrade Flow): 12.31 mm[Hg], 10.43 mm[Hg] Mean Velocity(Antegrade Flow): 1.14 m/s, 1.09 m/s Mean Gradient(Antegrade Flow): 6.02 mm[Hg], 5.43 mm[Hg] Velocity Time Integral: 32.86 cm, 31.63 cm Tricuspid Valve Pulmonic Valve Mean Gradient: 3.20 mm[Hg] Mean Velocity: 0.82 m/s Peak Velocity: 1.23 m/s, 0.98 m/s Peak Gradient: 3.80 mm[Hg], 6.00 mm[Hg] Right Atrium Right Atrium Systolic Pressure: 19.71 ml, 19.71 ml Dictated by: Rafiq Harp M.D. on 10/27/2023 at 12:31 Approved by: Rafiq Harp M.D. on 10/27/2023 at 12:34
== END 2023-10-26 12:30 | disposition home or self-care (01) ==
LOC: CARD 12:30
PROVIDERS: PCP Family Medicine; Visit Provider Internal Medicine Interventional Cardiology
DX: I77.3 Arterial fibromuscular dysplasia (principal); I15.0 Renovascular hypertension; R06.09 Other forms of dyspnea
CPT/HCPCS: 93306

== ENCOUNTER 2023-12-29 07:34 | Outpatient (RCR) | payer OTHER, SELFPAY ==
[2023-12-20 12:04] LABS: Basophils Absolute Auto 0.1 10^3/uL (0.0-0.1); Basophils Percent Auto 0.6 % (0.2-2.0); Eosinophils Absolute Auto 0.3 10^3/uL (0.0-0.7); Eosinophils Percent Auto 2.5 % (0.9-7.0); Hematocrit 44.7 % (36.0-48.0); Immature Granulocytes Abs Auto 0.04 10^3/uL (0.00-0.03); Immature Granulocytes Pct Auto 0.3 % (0.0-0.5); Lymphocytes Absolute Auto 2.6 10^3/uL (1.2-3.8); Lymphocytes Percent Auto 19.3 % (20.5-60.0); Mean Corpuscular HGB Conc 31.3 g/dL (29.9-35.2); Mean Corpuscular Hemoglobin 26.1 pg (26.7-34.0); Mean Corpuscular Volume 83.2 fL (81.0-99.0); Mean Platelet Volume 8.8 fL (9.5-13.5); Monocytes Absolute Auto 0.7 10^3/uL (0.3-0.8); Monocytes Percent Auto 5.4 % (1.7-12.0); Neutrophils Absolute Auto 9.6 10^3/uL (1.4-6.5); Neutrophils Percent Auto 71.9 % (43.0-75.0); Platelet Count 576 10^3/uL (150-450); Red Blood Count 5.37 10^6/uL (4.20-5.40); Red Cell Distribution Width 14.9 % (11.0-15.0); White Blood Count 13.4 10^3/uL (4.0-11.0)
[2023-12-20 12:27] LABS: Percent Iron Saturation 5.9 %
[2023-12-20 12:29] LABS: C Reactive Protein <0.50 mg/dL (<=0.50)
[2023-12-20 13:45] LABS: Erythrocyte Sedimentation Rate 55 mm/hr (<=20)
[2023-12-29 10:16] VITALS: BP 129/81; PULSE 81; TEMP 36.9; O2SAT 99
[2023-12-29] MEDS: FERRIC CARBOXYMALTOSE 750 MG in 0.9 % SODIUM CHLORIDE 250 ML 795 MG IV (10:29)
== END 2024-01-03 23:59 | disposition home or self-care (01) ==
LOC: INF 07:34
PROVIDERS: PCP Family Medicine; Visit Provider Internal Medicine Hematology & Oncology
DX: D75.839 Thrombocytosis, unspecified (principal); D50.9 Iron deficiency anemia, unspecified; D72.829 Elevated white blood cell count, unspecified; K90.9 Intestinal malabsorption, unspecified
CPT/HCPCS: 36415; 82728; 83540; 83550; 85025; 85652; 86140; 96365; G0463; J1439

== ENCOUNTER 2024-01-12 15:32 | Outpatient (OUT) | payer OTHER, SELFPAY ==
[2024-01-12 15:50] LABS: Basophils Absolute Auto 0.1 10^3/uL (0.0-0.1); Basophils Percent Auto 0.7 % (0.2-2.0); Eosinophils Absolute Auto 0.4 10^3/uL (0.0-0.7); Eosinophils Percent Auto 3.6 % (0.9-7.0); Hemoglobin 14.1 g/dL (12.0-16.0); Immature Granulocytes Abs Auto 0.02 10^3/uL (0.00-0.03); Immature Granulocytes Pct Auto 0.2 % (0.0-0.5); Lymphocytes Absolute Auto 2.7 10^3/uL (1.2-3.8); Lymphocytes Percent Auto 27.3 % (20.5-60.0); Mean Corpuscular HGB Conc 32.8 g/dL (29.9-35.2); Mean Corpuscular Hemoglobin 27.4 pg (26.7-34.0); Mean Corpuscular Volume 83.7 fL (81.0-99.0); Mean Platelet Volume 8.5 fL (9.5-13.5); Monocytes Absolute Auto 0.8 10^3/uL (0.3-0.8); Monocytes Percent Auto 8.2 % (1.7-12.0); Neutrophils Absolute Auto 5.8 10^3/uL (1.4-6.5); Platelet Count 383 10^3/uL (150-450); Red Blood Count 5.14 10^6/uL (4.20-5.40); Red Cell Distribution Width 18.3 % (11.0-15.0); White Blood Count 9.7 10^3/uL (4.0-11.0)
[2024-01-12 16:08] LABS: Alanine Aminotransferase 20 U/L (14-59); Albumin Globulin Ratio 0.9; Albumin Level 3.9 g/dL (3.4-5.0); Alkaline Phosphatase 102 U/L (46-116); Anion Gap 11.8; Aspartate Amino Transferase 10 U/L (15-37); BUN Creatinine Ratio 12.9; Bilirubin Total 0.1 mg/dL (0.2-1.0); Calcium 8.9 mg/dL (8.5-10.1); Carbon Dioxide 27.2 mmol/L (21.0-32.0); Chloride 103 mmol/L (98-107); Estimated GFR (African America >60 (>=60); Estimated GFR (Non-African Ame >60 (>=60); Globulin 4.3 g/dL; Glucose 82 mg/dL (74-106); Sodium 138 mmol/L (136-145); Total Protein 8.2 g/dL (6.4-8.2)
[2024-01-12 16:13] LABS: Percent Iron Saturation 25.5 %
[2024-01-12 16:17] LABS: Thyroid Stimulating Hormone 1.982 uIU/mL (0.358-3.740)
[2024-01-12 16:41] LABS: Free T4 0.78 ng/dL (0.76-1.46)
== END 2024-01-12 15:33 | disposition home or self-care (01) ==
LOC: LAB 15:33
PROVIDERS: PCP Family Medicine; Visit Provider Internal Medicine Hematology & Oncology
DX: D75.839 Thrombocytosis, unspecified (principal); D50.9 Iron deficiency anemia, unspecified; D72.829 Elevated white blood cell count, unspecified; K90.9 Intestinal malabsorption, unspecified
CPT/HCPCS: 36415; 80053; 82306; 82607; 82728; 82746; 83540; 83550; 84439; 84443; 85025

== ENCOUNTER 2024-01-17 07:41 | Outpatient (RCR) | payer OTHER, SELFPAY ==
[2024-01-04 00:06] VITALS: BP 129/81; PULSE 81; TEMP 36.9; O2SAT 99
[2024-01-05] MEDS: FERRIC CARBOXYMALTOSE 750 MG in 0.9 % SODIUM CHLORIDE 250 ML 795 MG IV (10:33)
[2024-01-05 10:44] VITALS: BP 142/87; PULSE 94; TEMP 36.6; O2SAT 96
--- NOTE | 2024-01-05 10:47 | PC.NURSE ---
1013 Arrival ambulatory to chair 1. IV initiated rt hand per Nicanor Campos. 1030 neogenomic testing drawn per Nicanor Campos and sent to lab. IV infusion initiated as ordered.
== END 2024-02-03 23:59 | disposition home or self-care (01) ==
LOC: INF 07:41
PROVIDERS: PCP Family Medicine; Visit Provider Internal Medicine Hematology & Oncology
DX: D50.9 Iron deficiency anemia, unspecified (principal); D75.839 Thrombocytosis, unspecified; D72.829 Elevated white blood cell count, unspecified; K90.9 Intestinal malabsorption, unspecified; F17.210 Nicotine dependence, cigarettes, uncomplicated; N92.0 Excessive and frequent menstruation with regular cycle
CPT/HCPCS: 36415; 96365; G0463; J1439

== ENCOUNTER 2024-02-01 16:08 | Outpatient (OUT) | payer OTHER, SELFPAY ==
--- OUTSIDE RECORDS SUMMARY | 2024-02-01 16:22 | XMS_ITS ---
Patient Summarization (C-CDA 2.1 CCD) Created on: February 01, 2024 Wayne [place] : 1980 Sex: Female Author Organization Sample organization Care Team Providers Care Airframe Technical Officer Name Role Phone PHYSICIAN, DEFAULT Unavailable Unavailable PHYSICIAN, DEFAULT Unavailable Unavailable [place], EHAB A Unavailable Unavailable [place], EHAB A Unavailable Unavailable TAYA ESPINOSA Unavailable Unavailable SUKHWINDER, TAYA Unavailable Unavailable Taya Espinosa Unavailable DR TAYA ESPINOSA Consulting Unavailable ESPINOSA, DR TAYA Valderrama Primary Care Unavailable SUKHWINDER, DR TAYA Valderrama Admitting Unavailable ESPINOSA, DR TAYA Valderrama Attending Unavailable ESPINOSA, DR TAYA Valderrama Primary Care Unavailable JASMINE DENG Attending Unavailable JASMINE DENG Consulting Unavailable JASMINE DENG Admitting Unavailable VALERIE GEORGE Consulting Unavailable [place], EHAB Attending Unavailable JASMINE DENG Attending Unavailable Allergies Allergy Classification Reported Allergen(s) Allergy Type Date of Onset Reaction(s) Facility (2 sources) No Known Allergies; Translations: [No Known Allergies] Propensity to adverse reactions (disorder) 7 [facility] Repository (1 source) patient allergy list reviewed by nurse or physicia Propensity to adverse reactions 4 Comment:Done Tray Other (1 source) Allergies Reconciled Propensity to adverse reactions Unknown [facility] Other (1 source) varenicline; Translations: [VARENICLINE] Drug Allergy 3 [facility] Repository Encounters Encounter Date Encounter Type Care Provider Facility Start: 01-24-2024 End: 01-24-2024 ambulatory [facility] Work Phone: Start: 01-24-2024 End: 01-24-2024 Patient encounter procedure [facility] Work Phone: Start: 01-12-2024 Non-patient / Non-visit [facility] Work Phone: Start: 12-20-2023 Non-patient / Non-visit [facility] Work Phone: Start: 10-24-2023 End: 10-24-2023 ambulatory [facility] Start: 10-06-2023 End: 10-06-2023 ambulatory Taya Espinosa Other [facility] Other Start: 10-06-2023 Telephone encounter Taya Espinosa [facility] Start: 01-07-2023 End: 01-07-2023 ambulatory Taya Espinosa Other [facility] Other Start: 01-07-2023 Telephone encounter Taya Espinosa [facility] Start: 01-05-2023 End: 01-05-2023 ambulatory Taya Espinosa Other [facility] Other Start: 01-05-2023 Telephone encounter Taya Espinosa [facility] Start: 01-03-2023 End: 01-04-[address] TAYA ESPINOSA [facility] Other Start: 01-03-2023 Office outpatient visit 15 minutes Taya Espinosa [facility] Start: 12-16-2022 End: 12-17-[address] TAYA ESPINOSA Facility: Start: 12-09-2022 End: 12-09-2022 ambulatory [facility] Start: 05-25-2017 End: 05-26-2017 Ambulatory [facility] Start: 05-11-2017 End: 05-12-2017 Ambulatory DEFAULT PHYSICIAN Facility:[facility] Immunizations Immunization Date Immunization Notes Care Provider Fa cility 03-20-2017 tetanus toxoid, redu ralph diphtheria toxoid, and acellular pertussis vaccine, adsorbed Taya Espinosa Other [facility] 03-20-2017 diphtheria, tetanus toxoids and acellular pertussis vaccine, unspecified formulation Taya Espinosa Other [facility] Medications Current Medications Medication Drug Class(es) Dates Sig (Normalized) Sig (Original) amLODIPine 10 mg oral tablet (5 sources) Dihydropyridine Calcium Channel Vannessa Start: 01-20-2024 take 1 tablet by mouth once daily Amlodipine Active 1 TAB PO Daily January 20, 2024 12:00am FreeTextSi tablet Orally Once a day; Note: Source Status: Taking; Provider: Sukhwinder Bain ( ) take 1 tablet by bravo th every twenty-four hours amLODIPine Besylate 10 MG 1 tablet Orall y Once a day Active 12 hr buPROPion hydrochloride 150 mg extended release oral tablet (5 sources) Aminoketone Start: 01-20-2024 take 1 tablet by mouth once daily in the morning Bupropion Hcl (Wellbutrin Sr) 150 mg tablet sustained-release 12 hr Active 1 TAB PO Daily January 20, 2024 12:00am FreeTextSi tablet in the morning Orally Once a day; Note: Source Status: Taking; Provider: Sukhwinder Bain ( ) take 1 tablet by bravo th every twenty-four hours Wellbutrin SR 150 MG 1 tablet in the morning Orally Once a day Active hydroCHLOROthiazide 12.5 mg / losartan potassium 50 mg oral tablet (5 sources) Thiazide Diuretic, Angiotensin 2 Receptor Vannessa Start: 01-20-2024 take 1 tablet by mouth once daily Losartan-Hydrochlorothiazide Active 1 TAB PO Daily January 20, 2024 12:00am FreeTextSi tablet Orally Once a day; Note: Source Status: Taking; Provider: Sukhwinder Bain ( ) take 1 tablet by bravo th every twenty-four hours Losartan Potassium-HCTZ 50-12.5 MG 1 tab let Orally Once a day Active Payers Date Payer Category Payer Private Health Insurance [id number] 1980 Unknown [id number] 1980 Unknown [id number] 1958 Unknown [id number] Unknown Unknown Other1 ([facility]) [id number] Problems Active Problems Problem Classification Problem Date Documented Date Episodic/Chronic Anxiety disorders (1 source) Generalized anxiety disorder; Translations: [Generalized anxiety disorder] Chronic Deficiency and other anemia (2 sources) Iron deficiency anemia; Translations: [Iron deficiency anemia, unspecified] 11-25-2023 Episodic Deficiency and other anemia (1 source) [...] Test Name Value Interpretation Reference Range Facility Basophils Auto (Bld) [#/Vol] on 01-12-2024 Basophils (Bld) [#/Vol] 0.1 10 3/uL 0.0-0.[address] [facility] Basophils/100 WBC Auto (Bld) on 01-12-2024 Basophils/100 WBC (Bld) 0.7 % 0.2-2.[address] [facility] Eosinophils/100 WBC Auto (Bl d)on 01-12-2024 Eosinophils/100 WBC (Bld) 3.6 % 0.9-7.[address] [facility] Erythrocyte distribution wid th Auto (RBC) [Ratio]on 01-12-2024 Erythrocyte distribution width (RBC) [Ratio] 18.3 % 11.0-15.[address] [facility] Estimated glomerular filtrat ion rate (GFR) non- Americanon 01-12-2024 GFR/1.73 sq M.predicted among non-blacks MDRD (S/P/Bld) [Vol rate/Area] mL/min/{1.73_m2} >=[address] [facility] Globulin Calc (S) [Mass/Vol] on 01-12-2024 Globulin (S) [Mass/Vol] 4.3 g/dL [facility] Hematocrit Auto (Bld) [Volum e fraction]on 01-12-2024 Hematocrit (Bld) [Volume fraction] 43.0 % 36.0-48.[address] [facility] Hemoglobin [Mass/volume] in Bloodon 01-12-2024 Hemoglobin (Bld) [Mass/Vol] 14.1 g/dL 12.0-16.[address] [facility] Iron binding capacity [Mass/ volume] in Serum or Plasmaon 01-12-2024 Iron binding capacity [Mass/Vol] 337.0 ug/dL 250.0-450. [address] [facility] Iron saturation [Mass Fracti on] in Serum or Plasmaon 01-12-2024 Iron saturation [Mass fraction] 25.5 % [facility] Laboratory - Chemistry and C hemistry - challengeon 01-12-2024 Albumin [Mass/Vol] 3.9 g/dL 3.4-5.[address] [facility] ALP [Catalytic activity/Vol] 102 U/L 46-[address] [facility] ALT [Catalytic activity/Vol] 20 U/L 14-[address] [facility] AST [Catalytic activity/Vol] 10 U/L 15-[address] [facility] Bilirubin [Mass/Vol] 0.1 mg/dL 0.2-1.[address] [facility] Calcium [Mass/Vol] 8.9 mg/dL 8.5-10.[address] [facility] Chloride [Moles/Vol] 103 mmol/L 98-[address] [facility] CO2 [Moles/Vol] 27.2 mmol/L 21.0-32.0 [facility] Cobalamin (Vitamin B12) [Mass/Vol] 384.0 pg/mL 193.0-986. [address] [facility] Creatinine [Mass/Vol] 0.62 mg/dL 0.55-1.[address] [facility] Ferritin [Mass/Vol] 819.0 ng/mL 8.0-252.[address] [facility] Free T4 [Mass/Vol] 0.78 ng/dL 0.76-1.[address] [facility] GFR/1.73 sq M.predicted MDRD (S/P/Bld) [Vol rate/Area] mL/min/{1.73_m2} >=[address] [facility] Glucose [Mass/Vol] 82 mg/dL 74-[address] [facility] Iron [Mass/Vol] 86.0 ug/dL 50.0-170.[address] [facility] Potassium [Moles/Vol] 4.0 mmol/L 3.5-5.[address] [facility] Protein [Mass/Vol] 8.2 g/dL 6.4-8.[address] [facility] Sodium [Moles/Vol] 138 mmol/L 136-[address] [facility] TSH Qn 1.982 m[IU]/L 0.358-3.[address] [facility] Urea nitrogen [Mass/Vol] 8.0 mg/dL 7.0-18.[address] [facility] Urea nitrogen/Creatin ine [Mass ratio] 12.9 mg/mg [facility] Laboratory - Hematology and Cell countson 01-12-2024 Immature granulocytes/100 WBC (Bld) 0.2 % 0.0-0.[address] [facility] Leukocytes [#/volume] correc lawrence for nucleated erythrocytes in Blood by Automated counon 01-12-2024 WBC corrected for nucl RBC Auto (Bld) [#/Vol] 9.7 10 3/uL 4.0-11.[address] [facility] Lymphocytes Auto (Bld) [#/Vo l]on 01-12-2024 Lymphocytes (Bld) [#/Vol] 2.7 10 3/uL 1.2-3.[address] [facility] Lymphocytes/100 WBC Auto (Bl d)on 01-12-2024 Lymphocytes/100 WBC (Bld) 27.3 % 20.5-60.[address] [facility] MCH Auto (RBC) [Entitic mass ]on 01-12-2024 MCH (RBC) [Entitic mass] 27.4 pg 26.7-34.[address] [facility] MCHC Auto (RBC) [Mass/Vol]on 01-12-2024 MCHC (RBC) [Mass/Vol] 32.8 g/dL 29.9-35.[address] [facility] MCV Auto (RBC) [Entitic vol] on 01-12-2024 MCV (RBC) [Entitic vol] 83.7 fL 81.0-99.[address] [facility] Monocytes Auto (Bld) [#/Vol] on 01-12-2024 Monocytes (Bld) [#/Vol] 0.8 10 3/uL 0.3-0.[address] [facility] Monocytes/100 WBC Auto (Bld) on 01-12-2024 Monocytes/100 WBC (Bld) 8.2 % 1.7-12.[address] [facility] Neutrophils Auto (Bld) [#/Vo l]on 01-12-2024 Neutrophils (Bld) [#/Vol] 5.8 10 3/uL 1.4-6.[address] [facility] Neutrophils/100 WBC Auto (Bl d)on 01-12-2024 Neutrophils/100 WBC (Bld) 60.0 % 43.0-75.[address] [facility] No Panel Informationon 01-11 25-Hydroxy Vitamin D Total 8.7 ng/mL [facility] Comment on above: <20 ng/mL Vit D [id number]-<30 ng/mL Vi t D [id number] ng/mL Vit D sufficient>100 ng/mL Potential Toxicity Eosinophils # (Auto) 0.4 10 3/uL 0.0-0.[address] [facility] Folate 9.70 ng/mL 8.60-58.[address] [facility] Immature Granulocyte # (Auto) 0.02 10 3/uL 0.00-0.[address] [facility] Platelet mean volume Auto (B ld) [Entitic vol]on 01-12-2024 Platelet mean volume (Bld) [Entitic vol] 8.5 fL 9.5-13.[address] [facility] Platelets Auto (Bld) [#/Vol] on 01-12-2024 Platelets (Bld) [#/Vol] 383 10 3/uL 150-[address] [facility] RBC Auto (Bld) [#/Vol]on RBC (Bld) [#/Vol] 5.14 10 6/uL 4.20-5.[address] [facility] Serum or plasma albumin/glob ulin mass ratioon 01-12-2024 Albumin/Globulin [Mass ratio] 0.9 {ratio} [facility] Serum or plasma anion gap de terminationon 01-12-2024 Anion gap [Moles/Vol] 11.8 mmol/L [facility] Basophils Auto (Bld) [#/Vol] on 12-20-2023 Basophils (Bld) [#/Vol] 0.1 10 3/uL 0.0-0.[address] [facility] Basophils/100 WBC Auto (Bld) on 12-20-2023 Basophils/100 WBC (Bld) 0.6 % 0.2-2.[address] [facility] Eosinophils/100 WBC Auto (Bl d)on 12-20-2023 Eosinophils/100 WBC (Bld) 2.5 % 0.9-7.[address] [facility] Erythrocyte distribution wid th Auto (RBC) [Ratio]on 12-20-2023 Erythrocyte distribution width (RBC) [Ratio] 14.9 % 11.0-15.[address] [facility] Hematocrit Auto (Bld) [Volum e fraction]on 12-20-2023 Hematocrit (Bld) [Volume fraction] 44.7 % 36.0-48.[address] [facility] Hemoglobin [Mass/volume] in Bloodon 12-20-2023 Hemoglobin (Bld) [Mass/Vol] 14.0 g/dL 12.0-16.[address] [facility] Iron binding capacity [Mass/ volume] in Serum or Plasmaon 12-20-2023 Iron binding capacity [Mass/Vol] 490.0 ug/dL 250.0-450. [address] [facility] Iron saturation [Mass Fracti on] in Serum or Plasmaon 12-20-2023 Iron saturation [Mass fraction] 5.9 % [facility] Laboratory - Chemistry and C hemistry - challengeon 12-20-2023 Ferritin [Mass/Vol] 8.0 ng/mL 8.0-252.[address] [facility] Iron [Mass/Vol] 29.0 ug/dL 50.0-170.[address] [facility] Laboratory - Hematology and Cell countson 12-20-2023 ESR (Bld) [Velocity] 55 mm/h <=[address] [facility] Immature granulocytes/100 WBC (Bld) 0.3 % 0.0-0.[address] [facility] Leukocytes [#/volume] correc lawrence for nucleated erythrocytes in Blood by Automated counon 12-20-2023 WBC corrected for nucl RBC Auto (Bld) [#/Vol] 13.4 10 3/uL 4.0-11.[address] [facility] Lymphocytes Auto (Bld) [#/Vo l]on 12-20-2023 Lymphocytes (Bld) [#/Vol] 2.6 10 3/uL 1.2-3.[address] [facility] Lymphocytes/100 WBC Auto (Bl d)on 12-20-2023 Lymphocytes/100 WBC (Bld) 19.3 % 20.5-60.[address] [facility] MCH Auto (RBC) [Entitic mass ]on 12-20-2023 MCH (RBC) [Entitic mass] 26.1 pg 26.7-34.[address] [facility] MCHC Auto (RBC) [Mass/Vol]on 12-20-2023 MCHC (RBC) [Mass/Vol] 31.3 g/dL 29.9-35.[address] [facility] MCV Auto (RBC) [Entitic vol] on 12-20-2023 MCV (RBC) [Entitic vol] 83.2 fL 81.0-99.[address] [facility] Monocytes Auto (Bld) [#/Vol] on 12-20-2023 Monocytes (Bld) [#/Vol] 0.7 10 3/uL 0.3-0.[address] [facility] Monocytes/100 WBC Auto (Bld) on 12-20-2023 Monocytes/100 WBC (Bld) 5.4 % 1.7-12.[address] [facility] Neutrophils Auto (Bld) [#/Vo l]on 12-20-2023 Neutrophils (Bld) [#/Vol] 9.6 10 3/uL 1.4-6.[address] [facility] Neutrophils/100 WBC Auto (Bl d)on 12-20-2023 Neutrophils/100 WBC (Bld) 71.9 % 43.0-75.[address] [facility] No Panel Informationon 12-19 C-Reactive Protein, Quantitative <0.50 mg/dL <=0.[address] [facility] Eosinophils # (Auto) 0.3 10 3/uL 0.0-0.[address] [facility] Immature Granulocyte # (Auto) 0.04 10 3/uL 0.00-0.[address] [facility] Platelet mean volume Auto (B ld) [Entitic vol]on 12-20-2023 Platelet mean volume (Bld) [Entitic vol] 8.8 fL 9.5-13.[address] [facility] Platelets Auto (Bld) [#/Vol] on 12-20-2023 Platelets (Bld) [#/Vol] 576 10 3/uL 150-[address] [facility] RBC Auto (Bld) [#/Vol]on RBC (Bld) [#/Vol] 5.37 10 6/uL 4.20-5.[address] [facility] Office Visiton 10-24-2023 Follow-up visit [id number] HobartCiro chahal Any 1980 F Date Provider Department Center 10/24/2023 271-DIANNA JACKSON CARD [facility] Family History Problem Relation Age of Onset Heart attack Mother Diabetes Mother Heart attack Father Family Status - Relation Status Age at Mother Father Level of Service:99220 DE OFFICE/OUTPATIENT ESTABLISHED MOD MDM 30 MIN Normal [facility] CBC AUTO DIFFon 01-03-2023 BASO # 0.1 103/ul Normal 0.0-0.1 [facility] Comment on above: Performed By: #### CBC #### [facility] [address] [place] [address] Dr. Quincy Alaniz Basophils/100 WBC (Bld) 0.5 % Normal 0.2-2.0 [facility] Comment on above: Performed By: #### CBC #### [facility] [address] [address] [address] Quincy Alaniz EO # 0.4 103/ul Normal 0.0-0.7 [facility] Comment on above: Performed By: #### CBC #### [facility] [address] [address] [address] Quincy Alaniz Eosinophils/100 WBC (Bld) 4.1 % Normal 0.9-7.0 [facility] Comment on above: Performed By: #### CBC #### [facility] [address] [address] [address] Quincy Alaniz Erythrocyte distribution width (RBC) [Ratio] 15.9 % Critically high 11.0-15.0 [facility] Comment on above: Performed By: #### CBC #### [facility] [address] [place] [address] Dr. Quincy Alaniz Hematocrit (Bld) [Volume fraction] 39.2 % Normal 36.0-48.0 [facility] Comment on above: Performed By: #### CBC #### [facility] [address] [place] [address] Dr. Quincy Alaniz Hemoglobin (Bld) [Mass/Vol] 12.4 g/dL Normal 12.0-16.0 [facility] Comment on above: Performed By: #### CBC #### [facility] [address] [place] [address] Dr. Quincy Alaniz IG # 0.03 10e3/ul Normal 0.00-0.03 [facility] Comment on above: Performed By: #### CBC #### [facility] [address] [place] [address] Dr. Quincy Alaniz IG % 0.3 % Normal 0.0-0.5 [facility] Comment on above: Performed By: #### CBC #### [facility] [address] [place] [address] Dr. Quincy Alaniz LYMPH # 2.9 103/ul Normal 1.2-3.8 [facility] Comment on above: Performed By: #### CBC #### [facility] [address] [place] [address] Dr. Quincy Alaniz Lymphocytes/100 WBC (Bld) 30.3 % Normal 20.5-60.0 [facility] Comment on above: Performed By: #### CBC #### [facility] [address] [place] [address] Dr. Quincy Alaniz MANUAL DIFF REQ NO Normal [facility] Comment on above: Performed By: #### CBC #### [facility] [address] [place] [address] Dr. Quincy Alaniz MCH (RBC) [Entitic mass] 25.6 pg Critically low 26.7-34.0 [facility] Comment on above: Performed By: #### CBC #### [facility] [address] [place] [address] Dr. Quincy Alaniz MCHC (RBC) [Mass/Vol] 31.6 g/dL Normal 29.9-35.2 [facility] Comment on above: Performed By: #### CBC #### [facility] [address] [address] [address] Quincy Alaniz MCV (RBC) [Entitic vol] 80.8 fL Critically low 81.0-99.0 [facility] Comment on above: Performed By: #### CBC #### [facility] [address] [place] [address] Dr. Quincy Alaniz MONO # 0.7 103/ul Normal 0.3-0.8 [facility] Comment on above: Performed By: #### CBC #### [facility] [address] [place] [address] Dr. Quincy Alaniz Monocytes/100 WBC (Bld) 7.4 % Normal 1.7-12.0 [facility] Comment on above: Performed By: #### CBC #### [facility] [address] [place] [address] Dr. Quincy Alaniz NEUT # 5.6 103/ul Normal 1.4-6.5 [facility] Comment on above: Performed By: #### CBC #### [facility] [address] [place] [address] Dr. Quincy Alaniz Neutrophils/100 WBC (Bld) 57.4 % Normal 43.0-75.0 [facility] Comment on above: Performed By: #### CBC #### [facility] [address] [place] [address] Dr. Quincy Alaniz Platelet mean volume (Bld) [Entitic vol] 8.6 fL Critically low 9.5-13.5 [facility] Comment on above: Performed By: #### CBC #### [facility] [address] [place] [address] Dr. Quincy Alaniz PLT 481 103/ul Critically high 150-450 [facility] Comment on above: Performed By: #### CBC #### [facility] [address] [place] [address] Dr. Quincy Alaniz RBC 4.85 106/ul Normal 4.20-5.40 [facility] Comment on above: Performed By: #### CBC #### [facility] [address] [place] [address] Dr. Quincy Alaniz WBC 9.7 103/ul Normal 4.0-11.0 [facility] Comment on above: Performed By: #### CBC #### [facility] [address] [place] [address] Dr. Quincy Alaniz FERRITINon 01-03-2023 Ferritin [Mass/Vol] 8.0 ng/mL Normal 6.2-137.0 [facility] Comment on above: Performed By: #### FERR #### [facility] [address] [place] [address] Dr. Quincy Alaniz 36on 12-29-2022 36 Please [...] 5 days a week). Thank you Normal [facility] Telephoneon 12-29-2022 Telephone [id number] Ciro [place] 1980 F Date Provider Department Center 12/29/2022 [facility] Family History Problem Relation Age of Onset Heart attack Mother Diabetes Mother Heart attack Father Family Status - Relation Status Age at Mother Father Normal [facility] CBC AUTO DIFFon 12-16-2022 BASO # 0.1 103/ul Normal 0.0-0.1 [facility] Comment on above: Performed By: #### CBC #### [facility] [address] [place] [address] Dr. Quincy Alaniz Basophils/100 WBC (Bld) 0.3 % Normal 0.2-2.0 [facility] Comment on above: Performed By: #### CBC #### [facility] [address] [place] [address] Dr. Quincy Alaniz EO # 0.4 103/ul Normal 0.0-0.7 [facility] Comment on above: Performed By: #### CBC #### [facility] [address] [place] [address] Dr. Quincy Alaniz Eosinophils/100 WBC (Bld) 1.7 % Normal 0.9-7.0 [facility] Comment on above: Performed By: #### CBC #### [facility] [address] [place] [address] Dr. Quincy Alaniz Erythrocyte distribution width (RBC) [Ratio] 15.1 % Critically high 11.0-15.0 [facility] Comment on above: Performed By: #### CBC #### [facility] [address] [place] [address] Dr. Quincy Alaniz Hematocrit (Bld) [Volume fraction] 39.6 % Normal 36.0-48.0 [facility] Comment on above: Performed By: #### CBC #### [facility] [address] [place] [address] Dr. Quincy Alaniz Hemoglobin (Bld) [Mass/Vol] 12.8 g/dL Normal 12.0-16.0 [facility] Comment on above: Performed By: #### CBC #### [facility] [address] [place] [address] Dr. Quincy Alaniz IG # 0.09 10e3/ul Critically high 0.00-0.03 [facility] Comment on above: Performed By: #### CBC #### [facility] [address] [place] [address] Dr. Quincy Alaniz IG % 0.4 % Normal 0.0-0.5 [facility] Comment on above: Performed By: #### CBC #### [facility] [address] [place] [address] Dr. Quincy Alaniz LYMPH # 2.4 103/ul Normal 1.2-3.8 [facility] Comment on above: Performed By: #### CBC #### [facility] [address] [place] [address] Dr. Quincy Alaniz Lymphocytes/100 WBC (Bld) 11.5 % Critically low 20.5-60.0 [facility] Comment on above: Performed By: #### CBC #### [facility] [address] [place] [address] Dr. Quincy Alaniz MANUAL DIFF REQ NO Normal [facility] Comment on above: Performed By: #### CBC #### [facility] [address] [place] [address] Dr. Quincy Alaniz MCH (RBC) [Entitic mass] 25.7 pg Critically low 26.7-34.0 [facility] Comment on above: Performed By: #### CBC #### [facility] [address] [place] [address] Dr. Quincy Alaniz MCHC (RBC) [Mass/Vol] 32.3 g/dL Normal 29.9-35.2 [facility] Comment on above: Performed By: #### CBC #### [facility] [address] [place] [address] Dr. Quincy Alaniz MCV (RBC) [Entitic vol] 79.4 fL Critically low 81.0-99.0 [facility] Comment on above: Performed By: #### CBC #### [facility] [address] [place] [address] Dr. Quincy Alaniz MONO # 1.2 103/ul Critically high 0.3-0.8 [facility] Comment on above: Performed By: #### CBC #### [facility] [address] [place] [address] Dr. Quincy Alaniz Monocytes/100 WBC (Bld) 5.4 % Normal 1.7-12.0 [facility] Comment on above: Performed By: #### CBC #### [facility] [address] [place] [address] Dr. Quincy Alaniz NEUT # 17.2 103/ul Critically high 1.4-6.5 [facility] Comment on above: Performed By: #### CBC #### [facility] [address] [place] [address] Dr. Quincy Alaniz Neutrophils/100 WBC (Bld) 80.7 % Critically high 43.0-75.0 [facility] Comment on above: Performed By: #### CBC #### [facility] [address] [place] [address] Dr. Quincy Alaniz Platelet mean volume (Bld) [Entitic vol] 8.6 fL Critically low 9.5-13.5 [facility] Comment on above: Performed By: #### CBC #### [facility] [address] [address] [address] Quincy Alaniz PLT 530 103/ul Critically high 150-450 [facility] Comment on above: Performed By: #### CBC #### [facility] [address] [address] [address] Quincy Alaniz RBC 4.99 106/ul Normal 4.20-5.40 [facility] Comment on above: Performed By: #### CBC #### [facility] [address] [address] [address] Quincy Alaniz WBC 21.3 103/ul Critically high 4.0-11.0 [facility] Comment on above: Performed By: #### CBC #### [facility] [address] [address] [address] Quincy Alaniz LIPID PROFILEon 12-16-2022 CHOL-HDL RATIO NORM SEE BELOW Normal [facility] Comment on above: Result Comment: 3.3 - 4.4 LOW RISK 4.4 - 7.1 AVERAGE RISK 7.1 - 11.0 MODERATE RISK >11.0 HIGH RISK Performed By: #### C MP, LIPID #### [facility] [address] [address] [address] Quincy Alaniz Cholesterol [Mass/Vol] 180 mg/dL Normal <=200 [facility] Comment on above: Performed By: #### CMP, LIPID #### [facility] [address] [address] [address] Quincy Alaniz Cholesterol in HDL [Mass/Vol] 29 mg/dL Critically low 40-60 [facility] Comment on above: Performed By: #### CMP, LIPID #### [facility] [address] [address] [address] Quincy Alaniz Cholesterol in LDL [Mass/Vol] 132.8 mg/dL Normal [facility] Comment on above: Performed By: #### CMP, LIPID #### [facility] [address] [address] [address] Quincy Alaniz Cholesterol.tota l/Cholesterol in HDL [Mass ratio] 6.2 {ratio} Normal [facility] Comment on above: Performed By: #### CMP, LIPID #### [facility] [address] [address] [address] Quincy Alaniz HDL NORMAL > or = 60 mg/dl - LO W CARDIOVASCULAR RISK <40 mg/dl - HIGH CARDIOVASCULAR RISK Normal [facility] Comment on above: Performed By: #### CMP, LIPID #### [facility] [address] [address] [address] Quincy Alaniz LDL CALC NORMAL SEE BELOW Normal [facility] Comment on above: Result Comment: <100 mg/dl OPTIMAL 100 - 129 mg/dl NEAR OR ABOVE OPTIMAL 130 - 159 mg/dl BORDERLINE HIGH 160 - 189 mg/dl HIGH >190 mg/dl VERY HIGH Performed By: #### C MP, LIPID #### [facility] [address] [place] [address] Dr. Quincy Alaniz Triglyceride [Mass/Vol] 91 mg/dL Normal <=150 [facility] Comment on above: Performed By: #### CMP, LIPID #### [facility] [address] [place] [address] Dr. Quincy Alaniz VLDL CALC 18.2 mg/dL Normal [facility] Comment on above: Performed By: #### CMP, LIPID #### [facility] [address] [place] [address] Dr. Quincy Alaniz PROF 14(COMP METB)on 023 Albumin [Mass/Vol] 3.7 g/dL Normal 3.4-5.0 [facility] Comment on above: Performed By: #### CMP, LIPID #### [facility] [address] [place] [address] Dr. Quincy Alaniz Albumin/Globulin [Mass ratio] 0.8 {ratio} Normal [facility] Comment on above: Performed By: #### CMP, LIPID #### [facility] [address] [place] [address] Dr. Quincy Alaniz ALP [Catalytic activity/Vol] 105 U/L Normal 46-116 [facility] Comment on above: Performed By: #### CMP, LIPID #### [facility] [address] [address] [address] Quincy Alaniz ALT [Catalytic activity/Vol] 24 U/L Normal 14-59 [facility] Comment on above: Performed By: #### CMP, LIPID #### [facility] [address] [address] [address] Quincy Alaniz Anion gap [Moles/Vol] 11.1 mmol/L Normal [facility] Comment on above: Performed By: #### CMP, LIPID #### [facility] [address] [address] [address] Quincy Alaniz AST [Catalytic activity/Vol] 14 U/L Critically low 15-37 [facility] Comment on above: Performed By: #### CMP, LIPID #### [facility] [address] [address] [address] Quincy Alaniz Bilirubin [Mass/Vol] 0.3 mg/dL Normal 0.2-1.0 [facility] Comment on above: Performed By: #### CMP, LIPID #### [facility] [address] [address] [address] Quincy Alaniz Calcium [Mass/Vol] 9.2 mg/dL Normal 8.5-10.1 [facility] Comment on above: Performed By: #### CMP, LIPID #### [facility] [address] [address] [address] Quincy Alaniz Chloride [Moles/Vol] 100 mmol/L Normal 98-107 [facility] Comment on above: Performed By: #### CMP, LIPID #### [facility] [address] [address] [address] Quincy Alaniz CO2 [Moles/Vol] 26.8 mmol/L Normal 21.0-32.0 [facility] Comment on above: Performed By: #### CMP, LIPID #### [facility] [address] [address] [address] Quincy Alaniz Creatinine [Mass/Vol] 0.68 mg/dL Normal 0.55-1.02 [facility] Comment on above: Performed By: #### CMP, LIPID #### [facility] [address] [address] [address] Quincy Alaniz EGFR-AF SLOVAK >60 Normal >=60 [facility] Comment on above: Performed By: #### CMP, LIPID #### [facility] [address] [address] [address] Quincy Alaniz EGFR-NON AF SLOVAK >60 Normal >=60 [facility] Comment on above: Performed By: #### CMP, LIPID #### [facility] [address] [address] [address] Quincy Alaniz Globulin (S) [Mass/Vol] 4.9 g/dL Normal [facility] Comment on above: Performed By: #### CMP, LIPID #### [facility] [address] [address] [address] Quincy Alaniz Glucose [Mass/Vol] 113 mg/dL Critically high 74-106 [facility] Comment on above: Performed By: #### CMP, LIPID #### [facility] [address] [address] [address] Quincy Alaniz Potassium [Moles/Vol] 3.9 mmol/L Normal 3.5-5.1 [facility] Comment on above: Performed By: #### CMP, LIPID #### [facility] [address] [address] [address] Quincy Alaniz Protein [Mass/Vol] 8.6 g/dL Critically high 6.4-8.2 [facility] Comment on above: Performed By: #### CMP, LIPID #### [facility] [address] [address] [address] Quincy Alaniz Sodium [Moles/Vol] 134 mmol/L Critically low 136-145 [facility] Comment on above: Performed By: #### CMP, LIPID #### [facility] [address] [address] [address] Quincy Alaniz Urea nitrogen [Mass/Vol] 9.0 mg/dL Normal 7.0-18.0 [facility] Comment on above: Performed By: #### CMP, LIPID #### [facility] [address] [place], [place] [address] Dr. Quincy Alaniz Urea nitrogen/Creatin ine [Mass ratio] 13.2 mg/mg Normal [facility] Comment on above: Performed By: #### CMP, LIPID #### [facility] [address] [place], [place] [address] Dr. Quincy Alaniz US KIDNEYSon 12-16-2022 US [...] by: VALERIE GEORGE Date: 2022-12-16 13:08 Normal [facility] Office Visiton 12-09-2022 Follow-up visit [id number] C[place] 1980 F Date Provider Department Center 12/09/2022 Skye-JASMINE DENG [facility] Family History Problem Relation Age of Onset Heart attack Mother Diabetes Mother Heart attack Father Family Status - Relation Status Age at Mother Father Level of Service:93599 DE OFFICE/OUTPATIENT ESTABLISHED MOD MDM 30-39 MIN Reason for Visit and Comments: Follow-up [704427] - Pt is here for 1 year F/U Normal [facility] BASIC METABOLIC PANELon 09-2 Calcium 8.6 mg/dL Normal 8.6-10.3 [facility] Comment on above: Order Comment: No: Do not add to previou s draw Performed By: #### 0 0071 ####[facility] [place] [address], [facility] Chloride 107 mmol/L Normal 98-107 [facility] Comment on above: Order Comment: No: Do not add to previou s draw Performed By: #### 0 0071 ####[facility] [place] [address], [facility] CO2 21 mmol/L Normal 21-31 [facility] Comment on above: Order Comment: No: Do not add to previou s draw Performed By: #### 0 0071 ####[facility] Creatinine 0.69 mg/dL Normal 0.60-1.20 [facility] Comment on above: Order Comment: No: Do not add to previou s draw Performed By: #### 0 0071 ####[facility] [facility].[address] eGFR (black) mL/min/{1.73_m2} Normal >60 [facility] Comment on above: Order Comment: No: Do not add to previou s draw Performed By: #### 0 0071 ####[facility] [facility].[address] eGFR (non-black) mL/min/{1.73_m2} Normal >60 Th e [facility] Comment on above: Order Comment: No: Do not add to previou s draw Performed By: #### 0 0071 ####[facility] [facility] [place] [address], [facility] Glucose mass conc 95 mg/dL Normal 70-100 [facility] Comment on above: Order Comment: No: Do not add to previou s draw Performed By: #### 0 0071 ####[facility] [facility] [place] [address], [facility] Potassium molar conc 4.6 mmol/L Normal 3.5-5.1 [facility] Comment on above: Order Comment: No: Do not add to previou s draw Performed By: #### 0 0071 ####[facility] Sodium 134 mmol/L Low 136-145 [facility] Comment on above: Order Comment: No: Do not add to previou s draw Performed By: #### 0 1 ####[facility] [facility] Urea nitrogen 11 mg/dL Normal 7-25 [facility] Comment on above: Order Comment: No: Do not add to previou s draw Performed By: #### 0 1 ####[facility] [facility] CBC W/DIFFon 05-26-2017 Basophils Auto #/vol (Bld) 0.5 % Normal 0.0-2.0 [facility] Comment on above: Order Comment: No: Do not add to previou s draw Performed By: #### 5 102 ####[facility] Eosinophils/100 leukocytes 2.4 % Normal 0.0-5.0 [facility] Comment on above: Order Comment: No: Do not add to previou s draw Performed By: #### 5 102 ####[facility] [facility].[address] Erythrocyte distribution width Auto Ratio (RBC) 16.8 % Normal 11.5-16.9 [facility] Comment on above: Order Comment: No: Do not add to previou s draw Performed By: #### 5 102 ####[facility] Erythrocytes (RBC) 4.30 mill/mm3 Normal 3.50-5.50 [facility] Comment on above: Order Comment: No: Do not add to previou s draw Performed By: #### 5 102 ####[facility] [place] [address], [facility] Hematocrit (HCT) 35.3 % Low 36.0-48.0 [facility] Comment on above: Order Comment: No: Do not add to previou s draw Performed By: #### 5 0103 ####[facility] [place] [address], [facility] Hemoglobin mass conc (Bld) 11.5 g/dL Low 12.0-15.0 [facility] Comment on above: Order Comment: No: Do not add to previou s draw Performed By: #### 5 0103 ####[facility] [facility].[address] Lymphocytes/100 leukocytes 27.9 % Normal 20.0-40.0 [facility] Comment on above: Order Comment: No: Do not add to previou s draw Performed By: #### 5 0103 ####[facility] MCH 26.8 pg Normal 24.0-32.0 [facility] Comment on above: Order Comment: No: Do not add to previou s draw Performed By: #### 5 0103 ####[facility] [facility].[address] MCHC mass conc (RBC) 32.6 g/dL Normal 32.0-36.0 [facility] Comment on above: Order Comment: No: Do not add to previou s draw Performed By: #### 5 0103 ####[facility] [place] [address], [facility] MCV 82.2 fL Normal 80.0-100.0 [facility] Comment on above: Order Comment: No: Do not add to previou s draw Performed By: #### 5 0103 ####[facility] [place] [address], [facility] METHOD Normal RBC Morphology Normal [facility] Comment on above: Order Comment: No: Do not add to previou s draw Performed By: #### 5 0103 ####[facility] [place] [address], [facility] MONOS 9.3 % High 2-8 [facility] Comment on above: Order Comment: No: Do not add to previou s draw Performed By: #### 5 0103 ####[facility] [facility] [place] [address], [facility] Neutrophils/100 leukocytes 59.9 % Normal 50-70 [facility] Comment on above: Order Comment: No: Do not add to previou s draw Performed By: #### 5 0103 ####[facility] [facility] [place] [place] [address], [facility] PLAT CNT 237 Thou/mm3 Normal 100-400 [facility] Comment on above: Order Comment: No: Do not add to previou s draw Performed By: #### 5 0103 ####[facility] [facility] [place] [address], [facility] WBC (Leukocytes) 7.2 Thou/mm3 Normal 4.0-10.0 [facility] Comment on above: Order Comment: No: Do not add to previou s draw Performed By: #### 5 0103 ####[facility] [facility] [place] [address], [facility] Cardiovascular Lab Reporton 05-26-2017 Cardiovascular Lab Report [facility]: [id number] Physician: Dianna Jackson,Department of M.D.Medicine Service Date: 05/25/2017Division of Birthdate: 1980Cardiology Room #: 3AB [id number] [place], [place] [address]Phone Fax Cardiovascular Laboratory ReportFINAL IMPRESSIONS:1. Successful balloon [...] Dr. Mena or myself in the [facility] in the next 3-4 weeks.4. Follow up with Dr. Espinosa as scheduled.PROCEDURES:1. Catheter placement in the abdominal aorta.2. Abdominal aortography.3. Bilateral selective renal angiography.4. Balloon angioplasty of the right renal artery.5. Placement of a 6-Gabonese MynxGrip closure device.METHODS: After risks, benefits, and alternatives were explained, writteninformed consent was obtained. The patient was prepped and draped in theusual sterile fashion over both groins. Using 1% lidocaine solution localinfiltration, anesthesia was achieved. Using a modified Seldingertechnique, access to the right common femoral artery was obtained utilizinga micropuncture kit. A 5-Gabonese 11-cm sheath was inserted withoutdifficulty. Baseline femoral angiography was performed.A 5-Gabonese Uni-Flush catheter was advanced over a J-wire and positioned inthe abdominal aorta. Abdominal aortography was performed under digitalsubtraction.A 5-Gabonese JR4 diagnostic catheter was used for bilateral renalangiography. After reviewing the images, it was elected to proceed with aninterventional procedure.The 5-Gabonese sheath was upsized to a 6-Gabonese 11-cm sheath. A 6-Gabonese IMcatheter was advanced over a J-wire and [...] vesseltrauma, or thrombosis. The catheter was removed.A 6-Gabonese MynxGrip closure device was deployed per protocol, achievingoptimal hemostasis. Overall, the patient tolerated the procedure well.There were no overt complications. [facility].FINDINGS: HEMODYNAMICS: AO 126/72 (97).ABDOMINAL [...] 05/25/2017/02:08 Thao/Dianna Jackson M.D.Date Trans: 05/26/2017 05:38 Tiffanie/Markel_JN:[id number]: Taya Espinosa M.D. [address] [place] [id number] Sima Mena M.D. [address] [place] [id number] [facility] Social History Date Type Detail Facility Start: 01-03-2023 Tobacco smoking status NHIS Smoker (finding) [facility] Start: 1980 Sex Assigned At Female F [facility] Unknown if ever smoked [facility] Other Sex Assigned At Sex Assigned At Bir th [facility] Other Vital Signs Date Time Vital Sign Value Performing Clinician Facility 01-24-2024 15:03-0400 Body height 154.94 cm [facility] 01-24-2024 15:03-0400 Body mass index (BMI) [Ratio] 23.8 kg/m2 [facility] 01-24-2024 15:03-0400 Body weight 57.15 kg [facility] 01-24-2024 15:03-0400 Diastolic blood pressure 101 mm[Hg] [facility] 01-24-2024 15:03-0400 Heart rate 79 /min [facility] 01-24-2024 15:03-0400 Systolic blood pressure 161 mm[Hg] [facility] 01-03-2023 15:45-0400 Body height 154.94 cm Taya Espinosa Other [employer] [facility] [employer] Other 01-03-2023 15:45-0400 Body mass index (BMI) [Ratio] 25.13 kg/m2 Taya Espinosa Other [facility] Other 01-03-2023 15:45-0400 Body weight 60.33 kg Taya Espinosa Other [facility] Other 01-03-2023 15:45-0400 Diastolic blood pressure 68 mm[Hg] Taya Espinosa Other [facility] Other 01-03-2023 15:45-0400 SaO2% (BldA) [Mass fraction] 97 % Taya Espinosa Other [facility] Other 01-03-2023 15:45-0400 Systolic blood pressure 116 mm[Hg] Taya Espinosa Other [facility] Other Progress note 10-24-2023 Note Date & Type Note Facility 10-24-2023 Note [facility] Cardiology Clinic Note Chief Complaint: Patient [...] a past medical history of Diabetes mellitus ([facility]) and Hypertension. Surgical History She has no [...] with Dr. Mena or myself in the [facility] in the next 3-4 weeks. 4. Follow up with Dr. Espinosa as scheduled. PROCEDURES: 1. Catheter placement in the abdominal aorta. 2. Abdominal aortography. 3. Bilateral selective renal angiography. 4. Balloon angioplasty of the right renal artery. 5. Placement of a 6-Gabonese MynxGrip closure device. Assessment: Fibromuscular dysplasia of [...] Jackson MD, MPH (more content not included)... [facility] Evaluation note 10-06-2023 Note Date & Type Note Facility 10-06-2023 Evaluation note Encounter Date Diagnosis Assessment Notes Oct, Leukocytosis, unspecified type (ICD-10 - D72.829) Oct, Iron deficiency anemia, unspecified iron deficiency anemia type (ICD-10 - D50.9) [facility] Other Evaluation note 01-03-2023 Note Date & Type Note Facility 01-03-2023 Evaluation note Encounter Date Diagnosis Assessment Notes January, Leukocytosis, unspecified type (ICD-10 - D72.829) Handwrote lab order to repeat CBC and ferritin. If referral needed, pt chooses the [facility] physician at the [facility]. January, Fatigue, unspecified type (ICD-10 - R53.83) Denies poor sleep problems or other issues. Reviewed labs, meds and d/w Wayne. [facility] Other Progress note 12-09-2022 Note Date & Type Note Facility 12-09-2022 Note [facility]e [facility] SUBJECTIVE Chief Complaint Patient presents with Follow-up Pt is here for 1 year F/U Wayne Agarwal Felix is a 42 y.o. female here for [...] with Dr. Mena or myself in the [facility] in the next 3-4 weeks. 4. Follow up with Dr. Espinosa as scheduled. PROCEDURES: 1. Catheter placement in the abdominal aorta. 2. Abdominal aortography. 3. Bilateral selective renal angiography. 4. Balloon angioplasty of the right renal artery. 5. Placement of a 6-Gabonese MynxGrip closure device. ASSESSMENT/PLAN: Diagnosis Plan 1. Fibromuscular dysplasia of right renal artery (CMS/HCC) Lipid panel Comprehensive metabolic panel CBC Vascular US renal artery duplex complete 2. Essential hypertension amLODIPine (Norvasc) 10 mg tablet losartan (Cozaar) 50 mg tablet Lipid panel Comprehensive metabolic panel CBC Vascular US renal artery duplex complete 3. Smoking trying to quit buPROPion SR (We (more content not included)... [facility] Evaluation note Note Date & Type Note Facility Evaluation note No Information [facility] [employer] Other Evaluation note Note Date & Type Note Facility Evaluation note No assessment information availa [facility] Work Phone: History general Narrative - Reported Note Date & Type Note Facility History general Narrative - Reported Type Surgical History tubal ligation [facility] Other Summary Purpose Family History No Family History Records FoundNo Family History Records FoundNo Family History Records Found Advance Directives Advance Directive Response Recorded Date/ Time Advance Directives No January 23 2:02pm Chief Complaint and Reason for Visit Chief Complaint follow up Additional Source Comments INFORMATION SOURCE (unrecogn ized section and content) DATE CREATED AUTHOR 02/28/2018 [facility] DATE CREATED AUTHOR AUTHOR'S ORGANIZ ATION 01/07/2023 [facility] DATE CREATED AUTHOR AUTHOR'S ORGANIZ ATION 10/25/2023 [facility] REASON FOR VISIT (unrecogniz ed section and content) Blood Work Discussionlabslab resultslabs Care Teams (unrecognized sec tion and content) Team Status: Active Member Role Status Dates Taya Espinosa MD Primary Care Provider Active Team Status: Active Member Role Status Dates Taya Espinosa MD Primary Care Provide r, Attending Provider Active Start: December 20, 2023 Team Status: Active Member Role Status Dates Taya Espinosa MD Primary Care Provider Active Start: January 12, 2024 Shayla Cruz MD Attending Provider Active St art: January 12, 2024 Team Status: Inactive Member Role Status Dates Taya Espinosa MD Primary Care Provide r, Attending Provider Active Start: January 24, 2024 End: January 24, 2024 Goals (unrecognized section and content) Goals may be documented in a n alternate section FOR RECORDS PERTAINING TO PATIENTS WHO ARE [...] BE BASED ON THE PRIMARY CLINICAL RECORDS. [facility]. provides no warranty or guarantee of the accuracy or completeness of information in this document.
== END 2024-02-01 16:09 | disposition home or self-care (01) ==
LOC: SLEEP 16:08
PROVIDERS: PCP Family Medicine; Visit Provider Family Medicine
DX: G47.33 Obstructive sleep apnea (adult) (pediatric) (principal)
CPT/HCPCS: 95806

== ENCOUNTER 2024-03-13 07:29 | Outpatient (RCR) | payer OTHER, SELFPAY ==
[2024-03-09 15:55] LABS: Basophils Absolute Auto 0.1 10^3/uL (0.0-0.1); Basophils Percent Auto 0.5 % (0.2-2.0); Eosinophils Absolute Auto 0.3 10^3/uL (0.0-0.7); Eosinophils Percent Auto 3.3 % (0.9-7.0); Hematocrit 48.3 % (36.0-48.0); Hemoglobin 16.3 g/dL (12.0-16.0); Immature Granulocytes Abs Auto 0.03 10^3/uL (0.00-0.03); Immature Granulocytes Pct Auto 0.3 % (0.0-0.5); Lymphocytes Absolute Auto 2.5 10^3/uL (1.2-3.8); Lymphocytes Percent Auto 26.2 % (20.5-60.0); Mean Corpuscular HGB Conc 33.7 g/dL (29.9-35.2); Mean Platelet Volume 8.7 fL (9.5-13.5); Monocytes Absolute Auto 0.6 10^3/uL (0.3-0.8); Monocytes Percent Auto 6.4 % (1.7-12.0); Neutrophils Absolute Auto 6.1 10^3/uL (1.4-6.5); Neutrophils Percent Auto 63.3 % (43.0-75.0); Platelet Count 290 10^3/uL (150-450); Red Blood Count 5.43 10^6/uL (4.20-5.40); Red Cell Distribution Width 16.1 % (11.0-15.0); White Blood Count 9.6 10^3/uL (4.0-11.0)
[2024-03-09 16:18] LABS: C Reactive Protein <0.50 mg/dL (<=0.50)
[2024-03-09 16:19] LABS: Percent Iron Saturation 25.1 %
[2024-03-09 16:28] LABS: Erythrocyte Sedimentation Rate 28 mm/hr (<=20)
== END 2024-03-15 15:19 | disposition home or self-care (01) ==
LOC: INF 07:29
PROVIDERS: PCP Family Medicine; Visit Provider Internal Medicine Hematology & Oncology
DX: D75.839 Thrombocytosis, unspecified (principal); D50.9 Iron deficiency anemia, unspecified; D72.829 Elevated white blood cell count, unspecified; K90.9 Intestinal malabsorption, unspecified; F17.210 Nicotine dependence, cigarettes, uncomplicated; N92.0 Excessive and frequent menstruation with regular cycle; R53.83 Other fatigue
CPT/HCPCS: 36415; 82306; 82607; 82728; 83540; 83550; 85025; 85652; 86140; G0463

== ENCOUNTER 2024-09-18 07:34 | Outpatient (RCR) | payer OTHER, SELFPAY ==
[2024-09-18 08:31] LABS: Basophils Absolute Auto 0.1 10^3/uL (0.0-0.1); Basophils Percent Auto 0.6 % (0.2-2.0); Eosinophils Absolute Auto 0.3 10^3/uL (0.0-0.7); Eosinophils Percent Auto 2.8 % (0.9-7.0); Hematocrit 46.9 % (36.0-48.0); Immature Granulocytes Abs Auto 0.03 10^3/uL (0.00-0.03); Immature Granulocytes Pct Auto 0.3 % (0.0-0.5); Lymphocytes Absolute Auto 2.2 10^3/uL (1.2-3.8); Lymphocytes Percent Auto 19.6 % (20.5-60.0); Mean Corpuscular HGB Conc 34.1 g/dL (29.9-35.2); Mean Corpuscular Hemoglobin 29.9 pg (26.7-34.0); Mean Corpuscular Volume 87.5 fL (81.0-99.0); Mean Platelet Volume 9.3 fL (9.5-13.5); Monocytes Absolute Auto 0.8 10^3/uL (0.3-0.8); Monocytes Percent Auto 7.4 % (1.7-12.0); Neutrophils Absolute Auto 7.7 10^3/uL (1.4-6.5); Neutrophils Percent Auto 69.3 % (43.0-75.0); Platelet Count 310 10^3/uL (150-450); Red Blood Count 5.36 10^6/uL (4.20-5.40); Red Cell Distribution Width 12.6 % (11.0-15.0); White Blood Count 11.1 10^3/uL (4.0-11.0)
[2024-09-18 08:48] LABS: Erythrocyte Sedimentation Rate 13 mm/hr (<=20)
[2024-09-18 08:57] LABS: Alanine Aminotransferase 32 U/L (14-59); Albumin Globulin Ratio 0.9; Albumin Level 3.6 g/dL (3.4-5.0); Alkaline Phosphatase 85 U/L (46-116); Anion Gap 12.8; Aspartate Amino Transferase 16 U/L (15-37); BUN Creatinine Ratio 17.8; Bilirubin Total 0.2 mg/dL (0.2-1.0); C Reactive Protein 0.51 mg/dL (<=0.50); Calcium 8.6 mg/dL (8.5-10.1); Carbon Dioxide 26.5 mmol/L (21.0-32.0); Chloride 104 mmol/L (98-107); Estimated GFR (African America >60 (>=60 mL/min/1.73m^2); Estimated GFR (Non-African Ame >60 (>=60 mL/min/1.73m^2); Glucose 99 mg/dL (74-106); Potassium 4.3 mmol/L (3.5-5.1); Sodium 139 mmol/L (136-145); Total Protein 7.6 g/dL (6.4-8.2)
[2024-09-18 08:58] LABS: Thyroid Stimulating Hormone 1.589 uIU/mL (0.358-3.740)
[2024-09-18 09:15] LABS: Percent Iron Saturation 20.4 %
[2024-09-19 04:07] LABS: Vitamin B12 362 pg/mL (232-1245)
== END 2024-09-19 08:49 | disposition home or self-care (01) ==
LOC: HEMC 07:34
PROVIDERS: PCP Family Medicine; Visit Provider Internal Medicine Hematology & Oncology
DX: D75.839 Thrombocytosis, unspecified (principal); D50.9 Iron deficiency anemia, unspecified; D72.829 Elevated white blood cell count, unspecified; K90.9 Intestinal malabsorption, unspecified; Z98.51 Tubal ligation status; F17.210 Nicotine dependence, cigarettes, uncomplicated; N92.0 Excessive and frequent menstruation with regular cycle; R53.83 Other fatigue; R53.1 Weakness; R06.09 Other forms of dyspnea
CPT/HCPCS: 36415; 80053; 82306; 82607; 82728; 83540; 83550; 84443; 85025; 85652; 86140; G0463

== ENCOUNTER 2024-10-23 09:48 | Outpatient (OUT) | payer OTHER, SELFPAY ==
--- OUTSIDE RECORDS SUMMARY | 2024-10-23 10:02 | XMS_ITS | CCD ---
Author Organization [facility] Care Team Providers Care Radio Station Audio Engineer Name Role Phone PHYSICIAN, DEFAULT Unavailable Unavailable PHYSICIAN, DEFAULT Unavailable Unavailable ELTAHAWY, EHAB A Unavailable Unavailable [place], EHAB A Unavailable Unavailable TAYA PRETTY Unavailable Unavailable SUKHWINDER, TAYA Unavailable Unavailable Taya Pretty Unavailable DR TAYA PRETTY Consulting Unavailable SUKHWINDER, DR TAYA Valderrama Primary Care Unavailable SUKHWINDER, DR TAYA Valderrama Admitting Unavailable SUKHWINDER, DR TAYA Valderrama Attending Unavailable SUKHWINDER, DR TAYA Valderrama Primary Care Unavailable JASMINE DENG Attending Unavailable JASMINE DENG Consulting Unavailable JASMINE DENG Admitting Unavailable VALERIE GEORGE Consulting Unavailable IVONNE MONTOYA Attending Unavailable TAYA PRETTY Primary Care Unavailable DAVID GONZALEZ Attending Unavailable ELTAHAWY, EHAB Attending Unavailable ELTAHAWY EHAB Attending Unavailable Allergies Allergy Classification Reported Allergen(s) Allergy Type Date of Onset Reaction(s) Facility (2 sources) No Known Allergies; Translations: [No Known Allergies] Propensity to adverse reactions (disorder) 7 [facility] Repository (1 source) patient allergy list reviewed by nurse or physicia Propensity to adverse reactions 4 Comment:Done [facility] Other (1 source) Allergies Reconciled Propensity to adverse reactions Unknown [facility] Other (1 source) varenicline; Translations: [VARENICLINE] Drug Allergy 3 [facility] Repository Medications Current Medications Medication Drug Class(es) [...] tab let Orally Once a day Active Problems Active [...] count, unspecified] Onset: 01-06-2023 Chronic Essential hypertension (12 sources) Essential (primary) hypertension; Translations: [Benign essential hypertension] Onset: 04-25-2017 Chronic Headache; including migraine (1 source) Headache; including migraine; Translations: [Headache, unspecified] Onset: 08-25-2024 Hypertension with complications and secondary hypertension (2 sources) Renovascular hypertension; Translations: [Renovascular hypertension] Onset: 10-24-2023 Chronic Malaise and fatigue (5 sources) Other fatigue; Translations: [OTHER FATIGUE] Onset: 01-03-2023 Episodic Other circulatory disease (7 sources) Arterial fibromuscular dysplasia; Translations: [ARTERIAL FIBROMUSCULAR DYSPLASIA] Onset: 05-25-2017 Chronic Other circulatory disease (1 source) Elevated blood-pressure reading, without diagnosis of hypertension; Translations: [Elevated blood-pressure reading, without diagnosis of hypertension] Onset: 08-25-2024 Episodic Other ear and sense organ disorders (1 source) Infective otitis externa; Translations: [Unspecified infective otitis externa] Onset: 08-05-2014 Chronic Other skin disorders (1 source) Disorder of [...] Problem Date Documented Da te Episodic/Chronic Other lower respiratory disease (2 sources) Other forms of dyspnea; Translations: [Other forms of dyspnea] Onset: 10-24-2023 Episodic Other non-traumatic joint disorders (1 source) Hand joint pain; Translations: [Pain in joint, hand] Onset: 12-16-2014 Episodic Other upper respiratory infections (2 sources) Acute pharyngitis; Translations: [Acute pharyngitis, unspecified] Onset: 06-04-2013 Episodic Results Test Name Value Interpretation Reference Range Facility Office Visiton 10-10-2024 Follow-up visit [id number] Ciro Mahoney 1980 F Date Provider Department Center 10/10/2024 271-HANY, EHAB CARD [facility] Family History Problem Relation Age of Onset Heart attack Mother Diabetes Mother Heart attack Father Family Status - Relation Status Age at Mother Father Level of Service:80404 [place] OFFICE/OUTPATIENT ESTABLISHED MOD MDM 30 MIN Normal [facility] CBC AND AUTO DIFFon 08-25- 24 ABSOLUTE BASOPHIL 0.0 X10E9/L Normal 0.0-0.2 [facility] Comment on above: Performed By: #### CBCA, CMP, , 8 9579-7 #### [facility] ([id number]) [address] [place] [address] 80967 ABSOLUTE NEUTROPHIL 10.6 X10E9/L High 1.5-6.6 [facility] Comment on above: Performed By: #### CBCA, CMP, , 8 9579-7 #### [facility] ([id number]) [address] [place] [address] 48252 Basophils/100 WBC (Bld) 0.3 % Normal [facility] Comment on above: Performed By: #### CBCA, CMP, , 8 9579-7 #### [facility] ([id number]) [address] [place] [address] 00100 Eosinophils (Bld) [#/Vol] 0.2 10*3/uL Normal 0.0-0.4 [facility] Comment on above: Performed By: #### CBCA, CMP, , 8 9579-7 #### [facility] ([id number]) [address] [place] [address] 62737 Eosinophils/100 WBC (Bld) 1.2 % Normal [facility] Comment on above: Performed By: #### CBCA, CMP, , 8 9579-7 #### [facility] ([id number]) [address] [place] [address] 90926 Erythrocyte distribution width (RBC) [Ratio] 13.4 % Normal 11.5-15.0 [facility] Comment on above: Performed By: #### [facility], , [address] #### [facility] ([id number]) [address] [place] [address] 23047 Hematocrit (Bld) [Volume fraction] 48.0 % High 35-47 [facility] Comment on above: Performed By: #### [facility], , [address] #### [facility] ([id number]) [address] [place] [address] 38493 Hemoglobin (Bld) [Mass/Vol] 16.4 g/dL High 11.7-15.5 [facility] Comment on above: Performed By: #### [facility], , [address] #### [facility] ([id number]) [address] [place] [address] 27843 Lymphocytes (Bld) [#/Vol] 2.4 10*3/uL Normal 1.0-3.5 [facility] Comment on above: Performed By: #### [facility], , 8 9579-7 #### [facility] ([id number]) [address] [place] [address] 44057 Lymphocytes/100 WBC (Bld) 17.2 % Normal [facility] Comment on above: Performed By: #### CBCACARLOS A, , 8 9579-7 #### [facility] ([id number]) [address] [place] [address] 63762 MCH (RBC) [Entitic mass] 30.0 pg Normal 27-34 [facility] Comment on above: Performed By: #### CBCCARLOS A Moreno, , [address] #### [facility] ([id number]) [address] [place] [address] 53596 MCHC (RBC) [Mass/Vol] 34.1 g/dL Normal 32-36 [facility] Comment on above: Performed By: #### CBCA, CMP, , 8 9579-7 #### [facility] ([id number]) [address] [place] [address] 98884 MCV (RBC) [Entitic vol] 88 fL Normal 80-100 [facility] Comment on above: Performed By: #### CBCA, CMP, , 8 9579-7 #### [facility] ([id number]) [address] [place] [address] 22428 Monocytes (Bld) [#/Vol] 1.0 10*3/uL High 0-0.9 [facility] Comment on above: Performed By: #### CBCA, CMP, , [address] #### [facility] ([id number]) [address] [place] [address] 03652 Monocytes/100 WBC (Bld) 6.9 % Normal [facility] Comment on above: Performed By: #### CBCA, CMP, , 8 9579-7 #### [facility] ([id number]) [address] [place] [address] 95016 Neutrophils/100 WBC (Bld) 74.4 % Normal [facility] Comment on above: Performed By: #### CBCA, CMP, , 8 9579-7 #### [facility] ([id number]) [address] [place] [address] 30198 Platelet mean volume (Bld) [Entitic vol] 7.5 fL Normal 7-12 [facility] Comment on above: Performed By: #### CBCA, CMP, , [address] #### [facility] ([id number]) [address] [place] [address] 83518 Platelets (Bld) [#/Vol] 324 10*3/uL Normal 150-450 [facility] Comment on above: Performed By: #### CYNDEE CMP, , 8 9579-7 #### [facility] ([id number]) [address] [place] [address] 91375 RBC COUNT 5.46 X10E12/L High 3.80-5.20 [facility] Comment on above: Performed By: #### CARLOS A COTTER, , 8 9579-7 #### [facility] ([id number]) [address] [place] [address] 03360 WBC (Bld) [#/Vol] 14.3 10*3/uL High 4.0-11.0 [facility] Comment on above: Performed By: #### CARLOS A COTTER, , 8 9579-7 #### [facility] ([id number]) [address] [place] [address] 49007 COMPREHENSIVE METABOLIC PANE [facility] 08-25-2024 Albumin [Mass/Vol] 4.1 g/dL Normal 3.2-5.3 [facility] Comment on above: Performed By: #### CARLOS A COTTER, , 8 9579-7 #### [facility] ([id number]) [address] [place] [address] 40680 ALP [Catalytic activity/Vol] 65 U/L Normal 39-130 [facility] Comment on above: Performed By: #### CYNDEE CMP, , 8 9579-7 #### [facility] ([id number]) [address] [place] [address] 60178 ALT [Catalytic activity/Vol] 24 U/L Normal 0-31 [facility] Comment on above: Performed By: #### CYNDEE CMP, , 8 9579-7 #### [facility] ([id number]) [address] [place] [address] 93949 Anion gap [Moles/Vol] 9 mmol/L Normal 5-15 [facility] Comment on above: Performed By: #### CARLOS A COTTER, , 8 9579-7 #### [facility] ([id number]) [address] [place] [address] [place] [address] AST [Catalytic activity/Vol] 17 U/L Normal 0-41 [facility] Comment on above: Performed By: #### CARLOS A COTTER, , 8 9579-7 #### [facility] ([id number]) [address] [place] [address] [place] [address] Bilirubin [Mass/Vol] 0.7 mg/dL Normal 0.3-1.2 [facility] Comment on above: Performed By: #### CARLOS A COTTER, , 8 9579-7 #### [facility] ([id number]) [address] [place] [address] 02532 Calcium [Mass/Vol] 8.9 mg/dL Normal 8.5-10.5 [facility] Comment on above: Performed By: #### CARLOS A COTTER, , 8 9579-7 #### [facility] ([id number]) [address] [place] [address] [place] [address] Chloride [Moles/Vol] 104 mmol/L Normal 98-109 [facility] Comment on above: Performed By: #### CARLOS A COTTER, , 8 9579-7 #### [facility] ([id number]) [address] [place] [address] [place] [address] CO2 [Moles/Vol] 22 mmol/L Normal 22-32 [facility] Comment on above: Performed By: #### CBCTiffanie CMP, , 8 9579-7 #### [facility] ([id number]) [address] [place] [address] 56614 Creatinine [Mass/Vol] 0.75 mg/dL Normal 0.40-1.00 [facility] Comment on above: Result Comment: METHOD TRACEABLE TO IDMS STANDARD Performed By: #### C CARLOS A WALKER, , 11037-7 #### [facility] ([id number]) [address] [place] [address] 08935 eGFR (CKD-EPI) NON-RACE DEPENDENT >90 Normal >59 [facility] Comment on above: Result Comment: Reported eGFR is based on the CKD-EPI 2020 equation that does not use a race coefficient. Performed By: #### C CARLOS A WALKER, , 60137-1 #### [facility] ([id number]) [address] [place] [address] 03937 Glucose [Mass/Vol] 105 mg/dL High 65-99 [facility] Comment on above: Performed By: #### CARLOS A COTTER, , 8 9579-7 #### [facility] ([id number]) [address] [place] [address] 61184 Potassium [Moles/Vol] 3.6 mmol/L Normal 3.5-5.0 [facility] Comment on above: Performed By: #### CARLOS A COTTER, , 8 9579-7 #### [facility] ([id number]) [address] [place] [address] 71978 Protein [Mass/Vol] 7.5 g/dL Normal 6.0-8.0 [facility] Comment on above: Performed By: #### CARLOS A COTTER, , 8 9579-7 #### [facility] ([id number]) [address] [place] [address] 46631 Sodium [Moles/Vol] 135 mmol/L Normal 134-146 [facility] Comment on above: Performed By: #### CARLOS A COTTER, 37946-9, 8 9579-7 #### [facility] ([id number]) [address] [place], [place] [address] Urea nitrogen [Mass/Vol] 12 mg/dL Normal 5-23 [facility] Comment on above: Performed By: #### CARLOS A COTTER, 02512-1, 8 9579-7 #### [facility] ([id number]) [address] [place] [address] BRAIN WO CONTon CT BRAIN WO CONT CT BRAIN WO CONT STUDY: CT BRAIN [...] by Darron Hercules on 08/25/2024 9:26 PM Normal [facility] MAGNESIUMon 08-25-2024 Magnesium [Mass/Vol] 2.0 mg/dL Normal 1.8-2.6 [facility] Comment on above: Performed By: #### CARLOS A COTTER, 75981-5, 8 9579-7 #### [facility] ([id number]) [address] [place] [address] 28143 Troponin I.cardiac High sens itivity method [Mass/Vol]on 08-25-2024 1 HOUR TROP I, HIGH SENSITIVITY 3 ng/L Normal <16 [facility] Comment on above: Performed By: #### 46208-9 #### [facility] ([id number]) [address] [place] [address] 48879 TROPONIN I, HIGH SENSITIVITY 3 ng/L Normal <16 [facility] Comment on above: Performed By: #### CBCA, CMP, 13581-8, 8 9579-7 #### [facility] ([id number]) [address] [place] [address], [place] [address] Basophils Auto (Bld) [#/Vol] on 01-12-2024 Basophils (Bld) [#/Vol] 0.1 10 3/uL 0.0-0.1 [facility] Basophils/100 WBC Auto (Bld) on 01-12-2024 Basophils/100 WBC (Bld) 0.7 % 0.2-2.0 [facility] Eosinophils/100 WBC Auto (Bl d)on 01-12-2024 Eosinophils/100 WBC (Bld) 3.6 % 0.9-7.0 [facility] Erythrocyte distribution wid th Auto (RBC) [Ratio]on 01-12-2024 Erythrocyte distribution width (RBC) [Ratio] 18.3 % 11.0-15.0 [facility] Estimated glomerular filtrat ion rate (GFR) non- Americanon 01-12-2024 GFR/1.73 sq M.predicted among non-blacks MDRD (S/P/Bld) [Vol rate/Area] mL/min/{1.73_m2} >=60 [facility] Globulin Calc (S) [Mass/Vol] on 01-12-2024 Globulin (S) [Mass/Vol] 4.3 g/dL [facility] Hematocrit Auto (Bld) [Volum e fraction]on 01-12-2024 Hematocrit (Bld) [Volume fraction] 43.0 % 36.0-48.0 [facility] Hemoglobin [Mass/volume] in Bloodon 01-12-2024 Hemoglobin (Bld) [Mass/Vol] 14.1 g/dL 12.0-16.0 [facility] Iron binding capacity [Mass/ volume] in Serum or Plasmaon 01-12-2024 Iron binding capacity [Mass/Vol] 337.0 ug/dL 250.0-450. 0 [facility] Iron saturation [Mass Fracti on] in Serum or Plasmaon 01-12-2024 Iron saturation [Mass fraction] 25.5 % [facility] - Chemistry and C hemistry - challengeon 01-12-2024 Albumin [Mass/Vol] 3.9 g/dL 3.4-5.0 [facility] ALP [Catalytic activity/Vol] 102 U/L 46-116 [facility] ALT [Catalytic activity/Vol] 20 U/L 14-59 [facility] AST [Catalytic activity/Vol] 10 U/L 15-37 [facility] Bilirubin [Mass/Vol] 0.1 mg/dL 0.2-1.0 [facility] Calcium [Mass/Vol] 8.9 mg/dL 8.5-10.1 [facility] Chloride [Moles/Vol] 103 mmol/L 98-107 [facility] CO2 [Moles/Vol] 27.2 mmol/L 21.0-32.0 [facility] Cobalamin (Vitamin B12) [Mass/Vol] 384.0 pg/mL 193.0-986. 0 [facility] Creatinine [Mass/Vol] 0.62 mg/dL 0.55-1.02 [facility] Ferritin [Mass/Vol] 819.0 ng/mL 8.0-252.0 [facility] Free T4 [Mass/Vol] 0.78 ng/dL 0.76-1.46 [facility] GFR/1.73 sq M.predicted MDRD (S/P/Bld) [Vol rate/Area] mL/min/{1.73_m2} >=60 [facility] Glucose [Mass/Vol] 82 mg/dL 74-106 [facility] Iron [Mass/Vol] 86.0 ug/dL 50.0-170.0 [facility] Potassium [Moles/Vol] 4.0 mmol/L 3.5-5.1 [facility] Protein [Mass/Vol] 8.2 g/dL 6.4-8.2 [facility] Sodium [Moles/Vol] 138 mmol/L 136-145 [facility] TSH Qn 1.982 m[IU]/L 0.358-3.74 0 [facility] Urea nitrogen [Mass/Vol] 8.0 mg/dL 7.0-18.0 [facility] Urea nitrogen/Creatin ine [Mass ratio] 12.9 mg/mg [facility] Laboratory - Hematology and Cell countson 01-12-2024 Immature granulocytes/100 WBC (Bld) 0.2 % 0.0-0.5 [facility] Leukocytes [#/volume] correc lawrence for nucleated erythrocytes in Blood by Automated counon 01-12-2024 WBC corrected for nucl RBC Auto (Bld) [#/Vol] 9.7 10 3/uL 4.0-11.0 [facility] Lymphocytes Auto (Bld) [#/Vo l]on 01-12-2024 Lymphocytes (Bld) [#/Vol] 2.7 10 3/uL 1.2-3.8 [facility] Lymphocytes/100 WBC Auto (Bl d)on 01-12-2024 Lymphocytes/100 WBC (Bld) 27.3 % 20.5-60.0 [facility] MCH Auto (RBC) [Entitic mass ]on 01-12-2024 MCH (RBC) [Entitic mass] 27.4 pg 26.7-34.0 [facility] MCHC Auto (RBC) [Mass/Vol]on 01-12-2024 MCHC (RBC) [Mass/Vol] 32.8 g/dL 29.9-35.2 [facility] MCV Auto (RBC) [Entitic vol] on 01-12-2024 MCV (RBC) [Entitic vol] 83.7 fL 81.0-99.0 [facility] Monocytes Auto (Bld) [#/Vol] on 01-12-2024 Monocytes (Bld) [#/Vol] 0.8 10 3/uL 0.3-0.8 [facility] Monocytes/100 WBC Auto (Bld) on 01-12-2024 Monocytes/100 WBC (Bld) 8.2 % 1.7-12.0 [facility] Neutrophils Auto (Bld) [#/Vo l]on 01-12-2024 Neutrophils (Bld) [#/Vol] 5.8 10 3/uL 1.4-6.5 [facility] Neutrophils/100 WBC Auto (Bl d)on 01-12-2024 Neutrophils/100 WBC (Bld) 60.0 % 43.0-75.0 [facility] No Panel Informationon 01-11 25-Hydroxy Vitamin D Total 8.7 ng/mL [facility] Comment on above: <20 ng/mL Vit D -<30 ng/mL Vi t D [id number] ng/mL Vit D sufficient>100 ng/mL Potential Toxicity Eosinophils # (Auto) 0.4 10 3/uL 0.0-0.7 [facility] Folate 9.70 ng/mL 8.60-58.90 [facility] Immature Granulocyte # (Auto) 0.02 10 3/uL 0.00-0.03 [facility] Platelet mean volume Auto (B ld) [Entitic vol]on 01-12-2024 Platelet mean volume (Bld) [Entitic vol] 8.5 fL 9.5-13.5 [facility] Platelets Auto (Bld) [#/Vol] on 01-12-2024 Platelets (Bld) [#/Vol] 383 10 3/uL 150-450 [facility] RBC Auto (Bld) [#/Vol]on RBC (Bld) [#/Vol] 5.14 10 6/uL 4.20-5.40 [facility] Serum or plasma albumin/glob ulin mass ratioon 01-12-2024 Albumin/Globulin [Mass ratio] 0.9 {ratio} [facility] Serum or plasma anion gap de terminationon 01-12-2024 Anion gap [Moles/Vol] 11.8 mmol/L [facility] Basophils Auto (Bld) [#/Vol] on 12-20-2023 Basophils (Bld) [#/Vol] 0.1 10 3/uL 0.0-0.1 [facility] Basophils/100 WBC Auto (Bld) on 12-20-2023 Basophils/100 WBC (Bld) 0.6 % 0.2-2.0 [facility] Eosinophils/100 WBC Auto (Bl d)on 12-20-2023 Eosinophils/100 WBC (Bld) 2.5 % 0.9-7.0 [facility] Erythrocyte distribution wid th Auto (RBC) [Ratio]on 12-20-2023 Erythrocyte distribution width (RBC) [Ratio] 14.9 % 11.0-15.0 [facility] Hematocrit Auto (Bld) [Volum e fraction]on 12-20-2023 Hematocrit (Bld) [Volume fraction] 44.7 % 36.0-48.0 [facility] Hemoglobin [Mass/volume] in Bloodon 12-20-2023 Hemoglobin (Bld) [Mass/Vol] 14.0 g/dL 12.0-16.0 [facility] Iron binding capacity [Mass/ volume] in Serum or Plasmaon 12-20-2023 Iron binding capacity [Mass/Vol] 490.0 ug/dL 250.0-450. 0 [facility] Iron saturation [Mass Fracti on] in Serum or Plasmaon 12-20-2023 Iron saturation [Mass fraction] 5.9 % [facility] - Chemistry and C hemistry - challengeon 12-20-2023 Ferritin [Mass/Vol] 8.0 ng/mL 8.0-252.0 [facility] Iron [Mass/Vol] 29.0 ug/dL 50.0-170.0 [facility] - Hematology and Cell countson 12-20-2023 ESR (Bld) [Velocity] 55 mm/h <=20 [facility] Immature granulocytes/100 WBC (Bld) 0.3 % 0.0-0.5 [facility] Leukocytes [#/volume] correc lawrence for nucleated erythrocytes in Blood by Automated counon 12-20-2023 WBC corrected for nucl RBC Auto (Bld) [#/Vol] 13.4 10 3/uL 4.0-11.0 [facility] Lymphocytes Auto (Bld) [#/Vo l]on 12-20-2023 Lymphocytes (Bld) [#/Vol] 2.6 10 3/uL 1.2-3.8 [facility] Lymphocytes/100 WBC Auto (Bl d)on 12-20-2023 Lymphocytes/100 WBC (Bld) 19.3 % 20.5-60.0 [facility] MCH Auto (RBC) [Entitic mass ]on 12-20-2023 MCH (RBC) [Entitic mass] 26.1 pg 26.7-34.0 [facility] MCHC Auto (RBC) [Mass/Vol]on 12-20-2023 MCHC (RBC) [Mass/Vol] 31.3 g/dL 29.9-35.2 [facility] MCV Auto (RBC) [Entitic vol] on 12-20-2023 MCV (RBC) [Entitic vol] 83.2 fL 81.0-99.0 [facility] Monocytes Auto (Bld) [#/Vol] on 12-20-2023 Monocytes (Bld) [#/Vol] 0.7 10 3/uL 0.3-0.8 [facility] Monocytes/100 WBC Auto (Bld) on 12-20-2023 Monocytes/100 WBC (Bld) 5.4 % 1.7-12.0 [facility] Neutrophils Auto (Bld) [#/Vo l]on 12-20-2023 Neutrophils (Bld) [#/Vol] 9.6 10 3/uL 1.4-6.5 [facility] Neutrophils/100 WBC Auto (Bl d)on 12-20-2023 Neutrophils/100 WBC (Bld) 71.9 % 43.0-75.0 [facility] No Panel Informationon 12-19 C-Reactive Protein, Quantitative <0.50 mg/dL <=0.50 [facility] Eosinophils # (Auto) 0.3 10 3/uL 0.0-0.7 [facility] Immature Granulocyte # (Auto) 0.04 10 3/uL 0.00-0.03 [facility] Platelet mean volume Auto (B ld) [Entitic vol]on 12-20-2023 Platelet mean volume (Bld) [Entitic vol] 8.8 fL 9.5-13.5 [facility] Platelets Auto (Bld) [#/Vol] on 12-20-2023 Platelets (Bld) [#/Vol] 576 10 3/uL 150-450 [facility] RBC Auto (Bld) [#/Vol]on RBC (Bld) [#/Vol] 5.37 10 6/uL 4.20-5.40 [facility] Office Visiton 10-24-2023 Follow-up visit [id number] Ciro Mahoney 1980 F Date Provider Department Center 10/24/2023 271-HANY, DIANNA CARD [facility] Family History Problem Relation Age of Onset Heart attack Mother Diabetes Mother Heart attack Father Family Status - Relation Status Age at Mother Father Level of Service:05136 [facility] OFFICE/OUTPATIENT ESTABLISHED MOD MDM 30 MIN Normal [facility] CBC AUTO DIFFon 01-03-2023 BASO # 0.1 103/ul Normal 0.0-0.1 [facility] Comment on above: Performed By: #### CBC #### [facility] [address] [place] [address] Dr. Quincy Alaniz Basophils/100 WBC (Bld) 0.5 % Normal 0.2-2.0 [facility] Comment on above: Performed By: #### CBC #### [facility] [address] [place] [address] Dr. Quincy Alaniz EO # 0.4 103/ul Normal 0.0-0.7 [facility] Comment on above: Performed By: #### CBC #### [facility] [address] [place] [address] Dr. Quincy Alaniz Eosinophils/100 WBC (Bld) 4.1 % Normal 0.9-7.0 [facility] Comment on above: Performed By: #### CBC #### [facility] [address] [place] [address] Dr. Quincy Alaniz Erythrocyte distribution width (RBC) [Ratio] 15.9 % Critically high 11.0-15.0 [facility] Comment on above: Performed By: #### CBC #### [facility] [address] [place] [address] Dr. Quincy Alaniz Hematocrit (Bld) [Volume fraction] 39.2 % Normal 36.0-48.0 [facility] Comment on above: Performed By: #### CBC #### [facility] [address] [place] [address] Dr. Quincy Alaniz Hemoglobin (Bld) [Mass/Vol] 12.4 g/dL Normal 12.0-16.0 [facility] Comment on above: Performed By: #### CBC #### [facility] [address] [place] [address] Dr. Quincy Alaniz IG # 0.03 10e3/ul Normal 0.00-0.03 [facility] Comment on above: Performed By: #### CBC #### [facility] [address] [place] [address] Dr. Quincy Alaniz IG % 0.3 % Normal 0.0-0.5 [facility] Comment on above: Performed By: #### CBC #### [facility] [address] [place] [address] Dr. Quincy Alaniz LYMPH # 2.9 103/ul Normal 1.2-3.8 [facility] Comment on above: Performed By: #### CBC #### [facility] [address] [place] [address] Dr. Quincy Alaniz Lymphocytes/100 WBC (Bld) 30.3 % Normal 20.5-60.0 [facility] Comment on above: Performed By: #### CBC #### [facility] [address] [place] [address] Dr. Quincy Alaniz MANUAL DIFF REQ NO Normal [facility] Comment on above: Performed By: #### CBC #### [facility] [address] [place] [address] Dr. Quincy Alaniz MCH (RBC) [Entitic mass] 25.6 pg Critically low 26.7-34.0 [facility] Comment on above: Performed By: #### CBC #### [facility] [address] [place] [address] Dr. Quincy Alaniz MCHC (RBC) [Mass/Vol] 31.6 g/dL Normal 29.9-35.2 [facility] Comment on above: Performed By: #### CBC #### [facility] [address] [address] [address] Quincy Alaniz MCV (RBC) [Entitic vol] 80.8 fL Critically low 81.0-99.0 [facility] Comment on above: Performed By: #### CBC #### [facility] [address] [address] [address] Quincy Alaniz MONO # 0.7 103/ul Normal 0.3-0.8 [facility] Comment on above: Performed By: #### CBC #### [facility] [address] [address] [address] Quincy Alaniz Monocytes/100 WBC (Bld) 7.4 % Normal 1.7-12.0 [facility] Comment on above: Performed By: #### CBC #### [facility] [address] [address] [address] Quincy Alaniz NEUT # 5.6 103/ul Normal 1.4-6.5 [facility] Comment on above: Performed By: #### CBC #### [facility] [address] [address] [address] Quincy Alaniz Neutrophils/100 WBC (Bld) 57.4 % Normal 43.0-75.0 [facility] Comment on above: Performed By: #### CBC #### [facility] [address] [address] [address] Quincy Alaniz Platelet mean volume (Bld) [Entitic vol] 8.6 fL Critically low 9.5-13.5 [facility] Comment on above: Performed By: #### CBC #### [facility] [address] [address] [address] Quincy Alaniz PLT 481 103/ul Critically high 150-450 [facility] Comment on above: Performed By: #### CBC #### [facility] [address] [address] [address] Quincy Alaniz RBC 4.85 106/ul Normal 4.20-5.40 [facility] Comment on above: Performed By: #### CBC #### [facility] [address] [place] [address] Dr. Quincy Alaniz WBC 9.7 103/ul Normal 4.0-11.0 [facility] Comment on above: Performed By: #### CBC #### [facility] [address] [place] [address] Dr. Quincy Alaniz FERRITINon 01-03-2023 Ferritin [Mass/Vol] 8.0 ng/mL Normal 6.2-137.0 [facility] Comment on above: Performed By: #### FERR #### [facility] [address] [place] [address] Dr. Quincy Alaniz CBC AUTO DIFFon 12-16-2022 BASO # 0.1 103/ul Normal 0.0-0.1 [facility] Comment on above: Performed By: #### CBC #### [facility] [address] [place] [address] Dr. Quincy Alaniz Basophils/100 WBC (Bld) 0.3 % Normal 0.2-2.0 [facility] Comment on above: Performed By: #### CBC #### [facility] [address] [place] [address] Dr. Quincy Alaniz EO # 0.4 103/ul Normal 0.0-0.7 [facility] Comment on above: Performed By: #### CBC #### [facility] [address] [place] [address] Dr. Quincy Alaniz Eosinophils/100 WBC (Bld) 1.7 % Normal 0.9-7.0 [facility] Comment on above: Performed By: #### CBC #### [facility] [address] [place] [address] Dr. Quincy Alaniz Erythrocyte distribution width (RBC) [Ratio] 15.1 % Critically high 11.0-15.0 [facility] Comment on above: Performed By: #### CBC #### [facility] [address] [place] [address] Dr. Quincy Alaniz Hematocrit (Bld) [Volume fraction] 39.6 % Normal 36.0-48.0 [facility] Comment on above: Performed By: #### CBC #### [facility] [address] [place] [address] Dr. Quincy Alaniz Hemoglobin (Bld) [Mass/Vol] 12.8 g/dL Normal 12.0-16.0 [facility] Comment on above: Performed By: #### CBC #### [facility] [address] [place] [address] Dr. Quincy Alaniz IG # 0.09 10e3/ul Critically high 0.00-0.03 [facility] Comment on above: Performed By: #### CBC #### [facility] [address] [place] [address] Dr. Quincy Alaniz IG % 0.4 % Normal 0.0-0.5 [facility] Comment on above: Performed By: #### CBC #### [facility] [address] [place] [address] Dr. Quincy Alaniz LYMPH # 2.4 103/ul Normal 1.2-3.8 [facility] Comment on above: Performed By: #### CBC #### [facility] [address] [place] [address] Dr. Quincy Alaniz Lymphocytes/100 WBC (Bld) 11.5 % Critically low 20.5-60.0 [facility] Comment on above: Performed By: #### CBC #### [facility] [address] [place] [address] Dr. Quincy Alaniz MANUAL DIFF REQ NO Normal [facility] Comment on above: Performed By: #### CBC #### [facility] [address] [place] [address] Dr. Quincy Alaniz MCH (RBC) [Entitic mass] 25.7 pg Critically low 26.7-34.0 [facility] Comment on above: Performed By: #### CBC #### [facility] [address] [place] [address] Dr. Quincy Alaniz MCHC (RBC) [Mass/Vol] 32.3 g/dL Normal 29.9-35.2 [facility] Comment on above: Performed By: #### CBC #### [facility] [address] [place] [address] Dr. Quincy Alaniz MCV (RBC) [Entitic vol] 79.4 fL Critically low 81.0-99.0 [facility] Comment on above: Performed By: #### CBC #### [facility] [address] [address] [address] Quincy Alaniz MONO # 1.2 103/ul Critically high 0.3-0.8 [facility] Comment on above: Performed By: #### CBC #### [facility] [address] [address] [address] Quincy Alaniz Monocytes/100 WBC (Bld) 5.4 % Normal 1.7-12.0 [facility] Comment on above: Performed By: #### CBC #### [facility] [address] [place] [address] Dr. Quincy Alaniz NEUT # 17.2 103/ul Critically high 1.4-6.5 [facility] Comment on above: Performed By: #### CBC #### [facility] [address] [place] [address] Dr. Quincy Alaniz Neutrophils/100 WBC (Bld) 80.7 % Critically high 43.0-75.0 [facility] Comment on above: Performed By: #### CBC #### [facility] [address] [place] [address] Dr. Quincy Alaniz Platelet mean volume (Bld) [Entitic vol] 8.6 fL Critically low 9.5-13.5 [facility] Comment on above: Performed By: #### CBC #### [facility] [address] [place] [address] Dr. Quincy Alaniz PLT 530 103/ul Critically high 150-450 [facility] Comment on above: Performed By: #### CBC #### [facility] [address] [place] [address] Dr. Quincy Alaniz RBC 4.99 106/ul Normal 4.20-5.40 [facility] Comment on above: Performed By: #### CBC #### [facility] [address] [place] [address] Dr. Quincy Alaniz WBC 21.3 103/ul Critically high 4.0-11.0 [facility] Comment on above: Performed By: #### CBC #### [facility] [address] [address] [address] Quincy Alaniz LIPID PROFILEon 12-16-2022 CHOL-HDL RATIO NORM SEE BELOW Normal [facility] Comment on above: Result Comment: 3.3 - 4.4 LOW RISK 4.4 - 7.1 AVERAGE RISK 7.1 - 11.0 MODERATE RISK >11.0 HIGH RISK Performed By: #### C MP, LIPID #### [facility] [address] [address] [address] Quincy Alaniz Cholesterol [Mass/Vol] 180 mg/dL Normal <=200 [facility] Comment on above: Performed By: #### CMP, LIPID #### [facility] [address] [address] [address] Quincy Alaniz Cholesterol in HDL [Mass/Vol] 29 mg/dL Critically low 40-60 [facility] Comment on above: Performed By: #### CMP, LIPID #### [facility] [address] [address] [address] Quincy Alaniz Cholesterol in LDL [Mass/Vol] 132.8 mg/dL Normal [facility] Comment on above: Performed By: #### CMP, LIPID #### [facility] [address] [address] [address] Quincy Alaniz Cholesterol.tota l/Cholesterol in HDL [Mass ratio] 6.2 {ratio} Normal [facility] Comment on above: Performed By: #### CMP, LIPID #### [facility] [address] [address] [address] Quincy Alaniz HDL NORMAL > or = 60 mg/dl - LO W CARDIOVASCULAR RISK <40 mg/dl - HIGH CARDIOVASCULAR RISK Normal [facility] Comment on above: Performed By: #### CMP, LIPID #### [facility] [address] [address] [address] Quincy Alaniz LDL CALC NORMAL SEE BELOW Normal [facility] Comment on above: Result Comment: <100 mg/dl OPTIMAL 100 - 129 mg/dl NEAR OR ABOVE OPTIMAL 130 - 159 mg/dl BORDERLINE HIGH 160 - 189 mg/dl HIGH >190 mg/dl VERY HIGH Performed By: #### C MP, LIPID #### [facility] [address] [address] [address] Quincy Alaniz Triglyceride [Mass/Vol] 91 mg/dL Normal <=150 [facility] Comment on above: Performed By: #### CMP, LIPID #### [facility] [address] [address] [address] Quincy Alaniz VLDL CALC 18.2 mg/dL Normal [facility] Comment on above: Performed By: #### CMP, LIPID #### [facility] [address] [place] [address] Dr. Quincy Alaniz PROF 14(COMP METB)on 023 Albumin [Mass/Vol] 3.7 g/dL Normal 3.4-5.0 [facility] Comment on above: Performed By: #### CMP, LIPID #### [facility] [address] [place] [address] Dr. Quincy Alaniz Albumin/Globulin [Mass ratio] 0.8 {ratio} Normal [facility] Comment on above: Performed By: #### CMP, LIPID #### [facility] [address] [place] [address] Dr. Quincy Alaniz ALP [Catalytic activity/Vol] 105 U/L Normal 46-116 [facility] Comment on above: Performed By: #### CMP, LIPID #### [facility] [address] [place] [address] Dr. Quincy Alaniz ALT [Catalytic activity/Vol] 24 U/L Normal 14-59 [facility] Comment on above: Performed By: #### CMP, LIPID #### [facility] [address] [place] [address] Dr. Quincy Alaniz Anion gap [Moles/Vol] 11.1 mmol/L Normal [facility] Comment on above: Performed By: #### CMP, LIPID #### [facility] [address] [place] [address] Dr. Quincy Alaniz AST [Catalytic activity/Vol] 14 U/L Critically low 15-37 [facility] Comment on above: Performed By: #### CMP, LIPID #### [facility] [address] [address] [address] Quincy Alaniz Bilirubin [Mass/Vol] 0.3 mg/dL Normal 0.2-1.0 [facility] Comment on above: Performed By: #### CMP, LIPID #### [facility] [address] [address] [address] Quincy Alaniz Calcium [Mass/Vol] 9.2 mg/dL Normal 8.5-10.1 [facility] Comment on above: Performed By: #### CMP, LIPID #### [facility] [address] [address] [address] Quincy Alaniz Chloride [Moles/Vol] 100 mmol/L Normal 98-107 [facility] Comment on above: Performed By: #### CMP, LIPID #### [facility] [address] [place] [address] Dr. Quincy Alaniz CO2 [Moles/Vol] 26.8 mmol/L Normal 21.0-32.0 [facility] Comment on above: Performed By: #### CMP, LIPID #### [facility] [address] [place] [address] Dr. Quincy Alaniz Creatinine [Mass/Vol] 0.68 mg/dL Normal 0.55-1.02 [facility] Comment on above: Performed By: #### CMP, LIPID #### [facility] [address] [place] [address] Dr. Quincy Alaniz EGFR-AF GUYANESE >60 Normal >=60 [facility] Comment on above: Performed By: #### CMP, LIPID #### [facility] [address] [place] [address] Dr. Quincy Alaniz EGFR-NON AF GUYANESE >60 Normal >=60 [facility] Comment on above: Performed By: #### CMP, LIPID #### [facility] [address] [place] [address] Dr. Quincy Alaniz Globulin (S) [Mass/Vol] 4.9 g/dL Normal [facility] Comment on above: Performed By: #### CMP, LIPID #### [facility] [address] [address] [address] Quincy Alaniz Glucose [Mass/Vol] 113 mg/dL Critically high 74-106 [facility] Comment on above: Performed By: #### CMP, LIPID #### [facility] [address] [address] [address] Quincy Alaniz Potassium [Moles/Vol] 3.9 mmol/L Normal 3.5-5.1 [facility] Comment on above: Performed By: #### CMP, LIPID #### [facility] [address] [address] [address] Quincy Alaniz Protein [Mass/Vol] 8.6 g/dL Critically high 6.4-8.2 [facility] Comment on above: Performed By: #### CMP, LIPID #### [facility] [address] [address] [address] Quincy Alaniz Sodium [Moles/Vol] 134 mmol/L Critically low 136-145 [facility] Comment on above: Performed By: #### CMP, LIPID #### [facility] [address] [address] [address] Quincy Alaniz Urea nitrogen [Mass/Vol] 9.0 mg/dL Normal 7.0-18.0 [facility] Comment on above: Performed By: #### CMP, LIPID #### [facility] [address] [address] [address] Quincy Alaniz Urea nitrogen/Creatin ine [Mass ratio] 13.2 mg/mg Normal [facility] Comment on above: Performed By: #### CMP, LIPID #### [facility] [address] [address] [address] Quincy Alaniz US KIDNEYSon 12-16-2022 US [...] by: VALERIE GEORGE Date: 2022-12-16 13:08 Normal [facility] BASIC METABOLIC PANELon 09-2 Calcium 8.6 mg/dL Normal 8.6-10.3 [facility] [place] Comment on above: Order Comment: No: Do not add to previou s draw Performed By: #### 0 0071 ####[facility] [place] [address], [place] Chloride 107 mmol/L Normal 98-107 [facility] [place] Comment on above: Order Comment: No: Do not add to previou s draw Performed By: #### 0 0071 ####[facility] [place] [address], [place] CO2 21 mmol/L Normal 21-31 [facility] [place] Comment on above: Order Comment: No: Do not add to previou s draw Performed By: #### 0 0071 ####[facility] [place] [address], [place] Creatinine 0.69 mg/dL Normal 0.60-1.20 [facility] [place] Comment on above: Order Comment: No: Do not add to previou s draw Performed By: #### 0 0071 ####[facility] [place] [address], [place] eGFR (black) mL/min/{1.73_m2} Normal >60 [facility] [place] Comment on above: Order Comment: No: Do not add to previou s draw Performed By: #### 0 0071 ####[facility] [place] [address], [place] eGFR (non-black) mL/min/{1.73_m2} Normal >60 Th e [facility] [place] Comment on above: Order Comment: No: Do not add to previou s draw Performed By: #### 0 0071 ####[facility] Glucose mass conc 95 mg/dL Normal 70-100 [facility] [place] Comment on above: Order Comment: No: Do not add to previou s draw Performed By: #### 0 0071 ####[facility] [facility].[address] Potassium molar conc 4.6 mmol/L Normal 3.5-5.1 [facility] [place] Comment on above: Order Comment: No: Do not add to previou s draw Performed By: #### 0 0071 ####[facility] Sodium 134 mmol/L Low 136-145 [facility] [place] Comment on above: Order Comment: No: Do not add to previou s draw Performed By: #### 0 0071 ####[facility] Urea nitrogen 11 mg/dL Normal 7-25 [facility] [place] Comment on above: Order Comment: No: Do not add to previou s draw Performed By: #### 0 0071 ####[facility] [facility].[address] CBC W/DIFFon 05-26-2017 Basophils Auto #/vol (Bld) 0.5 % Normal 0.0-2.0 [facility] [place] Comment on above: Order Comment: No: Do not add to previou s draw Performed By: #### 5 0103 ####[facility] Eosinophils/100 leukocytes 2.4 % Normal 0.0-5.0 [facility] [place] Comment on above: Order Comment: No: Do not add to previou s draw Performed By: #### 5 0103 ####[facility] Erythrocyte distribution width Auto Ratio (RBC) 16.8 % Normal 11.5-16.9 [facility] [place] Comment on above: Order Comment: No: Do not add to previou s draw Performed By: #### 5 0103 ####[facility] Erythrocytes (RBC) 4.30 mill/mm3 Normal 3.50-5.50 [facility] [place] Comment on above: Order Comment: No: Do not add to previou s draw Performed By: #### 5 0103 ####[facility] Hematocrit (HCT) 35.3 % Low 36.0-48.0 [facility] [place] Comment on above: Order Comment: No: Do not add to previou s draw Performed By: #### 5 0103 ####[facility] Hemoglobin mass conc (Bld) 11.5 g/dL Low 12.0-15.0 [facility] [place] Comment on above: Order Comment: No: Do not add to previou s draw Performed By: #### 5 0103 ####[facility] [place] [address], [place] Lymphocytes/100 leukocytes 27.9 % Normal 20.0-40.0 [facility] [place] Comment on above: Order Comment: No: Do not add to previou s draw Performed By: #### 5 0103 ####[facility] [place] [address], [place] MCH 26.8 pg Normal 24.0-32.0 [facility] [place] Comment on above: Order Comment: No: Do not add to previou s draw Performed By: #### 5 0103 ####[facility] [place] [address], [place] MCHC mass conc (RBC) 32.6 g/dL Normal 32.0-36.0 [facility] [place] Comment on above: Order Comment: No: Do not add to previou s draw Performed By: #### 5 0103 ####[facility] [place] [address], [place] MCV 82.2 fL Normal 80.0-100.0 [facility] [place] Comment on above: Order Comment: No: Do not add to previou s draw Performed By: #### 5 0103 ####[facility] [place] [address], [place] METHOD Normal RBC Morphology Normal [facility] [place] Comment on above: Order Comment: No: Do not add to previou s draw Performed By: #### 5 0103 ####[facility] [place] [address], [place] MONOS 9.3 % High 2-8 [facility] [place] Comment on above: Order Comment: No: Do not add to previou s draw Performed By: #### 5 0103 ####[facility] [place] [address], [place] Neutrophils/100 leukocytes 59.9 % Normal 50-70 [facility] [place] Comment on above: Order Comment: No: Do not add to previou s draw Performed By: #### 5 0103 ####[facility] [place] [address], [place] PLAT CNT 237 Thou/mm3 Normal 100-400 [facility] [place] Comment on above: Order Comment: No: Do not add to previou s draw Performed By: #### 5 0103 ####[facility] [place] [address], [place] WBC (Leukocytes) 7.2 Thou/mm3 Normal 4.0-10.0 [facility] [place] Comment on above: Order Comment: No: Do not add to previou s draw Performed By: #### 5 0103 ####[address] [place], [place] [id number] [place] [address] Cardiovascular Lab Reporton 05-26-2017 Cardiovascular Lab Report [facility] Patient Name: [facility] MR #: [id number] Physician: Dianna Jackson,Department of M.D.Medicine Service Date: 05/25/2017Division of Birthdate: 1980Cardiology Room #: 3AB [id number] [facility] [place], [place] [address]Gvtnp Fax Cardiovascular Laboratory ReportFINAL IMPRESSIONS:1. Successful balloon [...] with Dr. Mena or myself in the [facility] in the next 3-4 weeks.4. Follow up with Dr. Pretty as scheduled.PROCEDURES:1. Catheter placement in the abdominal aorta.2. Abdominal aortography.3. Bilateral selective renal angiography.4. Balloon angioplasty of the right renal artery.5. Placement of a 6-Cameroonian MynxGrip closure device.METHODS: After risks, benefits, and alternatives were explained, writteninformed consent was obtained. The patient was prepped and draped in theusual sterile fashion over both groins. Using 1% lidocaine solution localinfiltration, anesthesia was achieved. Using a modified Seldingertechnique, access to the right common femoral artery was obtained utilizinga micropuncture kit. A 5-Cameroonian 11-cm sheath was inserted withoutdifficulty. Baseline femoral angiography was performed.A 5-Cameroonian Uni-Flush catheter was advanced over a J-wire and positioned inthe abdominal aorta. Abdominal aortography was performed under digitalsubtraction.A 5-Cameroonian JR4 diagnostic catheter was used for bilateral renalangiography. After reviewing the images, it was elected to proceed with aninterventional procedure.The 5-Cameroonian sheath was upsized to a 6-Cameroonian 11-cm sheath. A 6-Cameroonian IMcatheter was advanced over a J-wire and [...] vesseltrauma, or thrombosis. The catheter was removed.A 6-Cameroonian MynxGrip closure device was deployed per protocol, achievingoptimal hemostasis. Overall, the patient tolerated the procedure well.There were no overt complications. [facility]FINDINGS: HEMODYNAMICS: AO 126/72 [...] and anatomysuitable for a closure device.INDICATIONS: Ms. Mahoney is a 36-year-old woman who developed new onsethypertension with systolic blood pressures in the 220 range. RenalDopplers suggested elevated velocities in the mid renal artery. She wasreferred for renal angiography plus or minus revascularization forsuspected fibromuscular dysplasia given her age and demographics. Findingsand management strategies are outlined above.Electronically Signed by:Dianna Jackson M.D. 06/14/2017 12:10 P Dianna Jackson M.D.Date Dict: 05/25/2017/02:08 P/Dianna Jackson M.D.Date Trans: 05/26/2017 05:38 A/EstellaN_[id number]: Taya Pretty M.D. [address] [place] [id number] Sima Mena M.D. [address] [place] [address] [facility] Vital Signs Date Time Vital Sign Value Performing Clinician Facility 01-24-2024 15:03-0400 Body height 154.94 cm [facility] 01-24-2024 15:03-0400 Body mass index (BMI) [Ratio] 23.8 kg/m2 [facility] 01-24-2024 15:03-0400 Body weight 57.15 kg [facility] 01-24-2024 15:03-0400 Diastolic blood pressure 101 mm[Hg] [facility] 01-24-2024 15:03-0400 Heart rate 79 /min [facility] 01-24-2024 15:03-0400 Systolic blood pressure 161 mm[Hg] [facility] 01-03-2023 15:45-0400 Body height 154.94 cm Taya Pretty Other [facility] [employer] Other 01-03-2023 15:45-0400 Body mass index (BMI) [Ratio] 25.13 kg/m2 Taya Pretty Other [facility] Other 01-03-2023 15:45-0400 Body weight 60.33 kg Taya Pretty Other [facility] Other 01-03-2023 15:45-0400 Diastolic blood pressure 68 mm[Hg] Taya Pretty Other [facility] Other 01-03-2023 15:45-0400 SaO2% (BldA) [Mass fraction] 97 % Taya Pretty Other [facility] Other 01-03-2023 15:45-0400 Systolic blood pressure 116 mm[Hg] Taya Pretty Other [facility] Other Encounters Encounter Date Encounter Type Care Provider Facility Start: 10-10-2024 End: 10-10-2024 ambulatory [facility] Start: 08-25-2024 End: 08-25-2024 Emergency department patient visit TAYA PRETTY [facility] Start: 03-06-2024 End: 03-06-2024 ambulatory IVONNE MONTOYA Not Available Start: 01-24-2024 End: 01-24-2024 ambulatory [facility] Work Phone: Start: 01-24-2024 End: 01-24-2024 Patient encounter procedure [facility] Work Phone: Start: 01-12-2024 Non-patient / Non-visit [facility] Work Phone: Start: 12-20-2023 Non-patient / Non-visit [facility] Work Phone: Start: 10-24-2023 End: 10-24-2023 ambulatory [facility] Start: 10-06-2023 End: 10-06-2023 ambulatory Taya Pretty Other [facility] Other Start: 10-06-2023 Telephone encounter Taya Pretty [facility] Start: 01-07-2023 End: 01-07-2023 ambulatory Taya Pretty Other [facility] Other Start: 01-07-2023 Telephone encounter Taya Pretty [facility] Start: 01-05-2023 End: 01-05-2023 ambulatory Taya Pretty Other [place] [facility] Other Start: 01-05-2023 Telephone encounter Taya Pretty [facility] Start: 01-03-2023 End: 01-04-[address] TAYA PRETTY [facility] [employer] Other Start: 01-03-2023 Office outpatient visit 15 minutes Taya Pretty [facility] Start: 12-16-2022 End: 12-17-[address] TAYA PRETTY Facility: Start: 05-25-2017 End: 05-26-2017 Ambulatory [facility] Facility:[facility] Start: 05-11-2017 End: 05-12-2017 Ambulatory DEFAULT PHYSICIAN Facility:[facility] Immunizations Immunization Date Immunization Notes Care Provider Fa flavio 03-20-2017 tetanus toxoid, redu ralph diphtheria toxoid, and acellular pertussis vaccine, adsorbed Taya Pretty Other [facility] 03-20-2017 diphtheria, tetanus toxoids and acellular pertussis vaccine, unspecified formulation Taya Pretty Other [facility] Payers Date Payer Category Payer Private Health Insurance [id number] 1980 Unknown [id number] 1980 Unknown [id number] 1980 Unknown [id number] 1980 Unknown [id number] 1958 Unknown [id number] Unknown Unknown Other1 ([facility]) [id number] Social History Date Type Detail Facility Unknown if ever smoked [facility] Other Sex Assigned At Sex Assigned At Bir th [facility] Other Start: 01-03-2023 Tobacco smoking status NHIS Smoker (finding) [facility] Start: 1980 Sex Assigned At Female F [facility] Progress note 10-10-2024 Note Date & Type Note Facility 10-10-2024 Note [facility] Note Chief Complaint: Patient here for 1 year follow up 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 Amlodipine was stopped for awhile she says due to anemia. She sees Dr. Cruz for this. She is taking amlodipine again. Had EKG in Aug 2024, and had labs a few weeks ago for Dr. Curz. Denies chest pain, SOB, and palpitations. HPI: Wayne Mahoney is a 44 y.o. female PMHx: HTN, [...] a past medical history of Diabetes mellitus (CMS/HCC) and Hypertension. Surgical History She has no [...] with Dr. Mena or myself in the [facility] in the next 3-4 weeks. 4. Follow up with Dr. Pretty as scheduled. PROCEDURES: 1. Catheter placement in the abdominal aorta. 2. Abdominal aortography. 3. Bilateral selective renal angiography. 4. Balloon angioplasty of the right renal artery. 5. Placement of a 6-Cameroonian MynxGrip closure device. Echocardiogram 10/28/2023: Normal ventricular systolic function. LVEF is 65%. No significant valvular dysfunction Normal diastolic function No pericardial effusion Unable to assess right-sided pressures due to lack of measurable tricuspid regurgitation Assessment: Fibromuscular dysplasia of the right renal artery s/p bal (more content not included)... [facility] Progress note 10-24-2023 Note Date & Type Note Facility 10-24-2023 Note [facility] Cardiology Clinic Note Chief Complaint: Patient here for 10 mo follow up fibromuscular dysplasia of right renal artery and hypertension. Had renal US and labs after last apt in December 2022. She will have labs drawn after apt today for PCP to follow up on elevated WBC. Patient continues to deny chest pain, SOB, palpitations, and lightheadedness/syncope. HPI: Wayne Mahoney is a 43 y.o. female PMHx: HTN, [...] a past medical history of Diabetes mellitus (CMS/HCC) and Hypertension. Surgical History She has no [...] with Dr. Mena or myself in the [facility] in the next 3-4 weeks. 4. Follow up with Dr. Pretty as scheduled. PROCEDURES: 1. Catheter placement in the abdominal aorta. 2. Abdominal aortography. 3. Bilateral selective renal angiography. 4. Balloon angioplasty of the right renal artery. 5. Placement of a 6-Cameroonian MynxGrip closure device. Assessment: Fibromuscular dysplasia of [...] Jackson MD, MPH (more content not included)... [facility] Evaluation note 10-06-2023 Note Date & Type Note Facility 10-06-2023 Evaluation note Encounter Date Diagnosis Assessment Notes Oct, Leukocytosis, unspecified type (ICD-10 - D72.829) Oct, Iron deficiency anemia, unspecified iron deficiency anemia type (ICD-10 - D50.9) [facility] Other Evaluation note 01-03-2023 Note Date & Type Note Facility 01-03-2023 Evaluation note Encounter Date Diagnosis Assessment Notes January, Leukocytosis, unspecified type (ICD-10 - D72.829) Handwrote lab order to repeat CBC and ferritin. If referral needed, pt chooses the [facility] physician at the [facility]. January, Fatigue, unspecified type (ICD-10 - R53.83) Denies poor sleep problems or other issues. Reviewed labs, meds and d/w Wayne. [facility] [employer] Other Evaluation note Note Date & Type Note Facility Evaluation note No Information [facility] [employer] Other Evaluation note Note Date & Type Note Facility Evaluation note No assessment information availa [facility] Work Phone: History general Narrative - Reported Note Date & Type Note Facility History general Narrative - Reported Type Surgical History tubal ligation [facility] [employer] Other Summary Purpose Family History No Family History Records FoundNo Family History Records FoundNo Family History Records FoundNo Family History Records FoundNo Family History Records Found Advance Directives No Advanced Directives Records Found Advance Directive Response Recorded Date/ Time Advance Directives No January 23 2:02pm Chief Complaint and Reason for Visit Chief Complaint follow up Additional Source Comments INFORMATION SOURCE (unrecogn ized section and content) DATE CREATED AUTHOR 02/28/2018 [facility] DATE CREATED AUTHOR AUTHOR'S ORGANIZ ATION 01/07/2023 [facility] DATE CREATED AUTHOR AUTHOR'S ORGANIZ ATION 03/08/2024 [facility] EPIC DATE CREATED AUTHOR AUTHOR'S ORGANIZ ATION 08/28/2024 [facility] DATE CREATED AUTHOR AUTHOR'S ORGANIZ ATION 10/12/2024 [facility] REASON FOR VISIT (unrecogniz ed section and content) Blood Work Discussionlabslab resultslabs Care Teams (unrecognized sec tion and content) Team Status: Active Member Role Status Dates Taya Pretty MD Primary Care Provider Active Team Status: Active Member Role Status Dates Taya Pretty MD Primary Care Provide r, Attending Provider Active Start: December 20, 2023 Team Status: Active Member Role Status Dates Taya Pretty MD Primary Care Provider Active Start: January 12, 2024 Shayla Cruz MD Attending Provider Active St art: January 12, 2024 Team Status: Inactive Member Role Status Dates Taya Pretty MD Primary Care Provide r, Attending Provider [...] BE BASED ON THE PRIMARY CLINICAL RECORDS. [facility] [employer] [facility]. provides no warranty or guarantee of the accuracy or completeness of information in this document.
== END 2024-10-23 09:49 | disposition home or self-care (01) ==
LOC: US 09:48
PROVIDERS: PCP Family Medicine; Visit Provider Internal Medicine Interventional Cardiology
DX: I10 Essential (primary) hypertension (principal)
CPT/HCPCS: 76775; 93975

== ENCOUNTER 2025-02-12 07:39 | Outpatient (RCR) | payer OTHER, SELFPAY ==
[2025-02-07 16:59] LABS: Percent Iron Saturation 13.8 %
[2025-02-07 17:01] LABS: Alanine Aminotransferase 25 U/L (14-59); Albumin Globulin Ratio 0.9; Albumin Level 3.8 g/dL (3.4-5.0); Alkaline Phosphatase 80 U/L (46-116); Anion Gap 12.2; Aspartate Amino Transferase 8 U/L (15-37); BUN Creatinine Ratio 19.7; Bilirubin Total 0.1 mg/dL (0.2-1.0); Calcium 9.4 mg/dL (8.5-10.1); Carbon Dioxide 27.6 mmol/L (21.0-32.0); Chloride 101 mmol/L (98-107); Estimated GFR (African America >60 (>=60 mL/min/1.73m^2); Estimated GFR (Non-African Ame >60 (>=60 mL/min/1.73m^2); Glucose 101 mg/dL (74-106); Potassium 3.8 mmol/L (3.5-5.1); Sodium 137 mmol/L (136-145); Total Protein 7.8 g/dL (6.4-8.2)
[2025-02-07 17:14] LABS: Basophils Absolute Auto 0.1 10^3/uL (0.0-0.1); Basophils Percent Auto 0.7 % (0.2-2.0); Eosinophils Absolute Auto 0.2 10^3/uL (0.0-0.7); Eosinophils Percent Auto 2.3 % (0.9-7.0); Hematocrit 43.4 % (36.0-48.0); Hemoglobin 15.1 g/dL (12.0-16.0); Immature Granulocytes Abs Auto 0.03 10^3/uL (0.00-0.03); Immature Granulocytes Pct Auto 0.3 % (0.0-0.5); Lymphocytes Percent Auto 30.8 % (20.5-60.0); Mean Corpuscular HGB Conc 34.8 g/dL (29.9-35.2); Mean Corpuscular Hemoglobin 30.4 pg (26.7-34.0); Mean Corpuscular Volume 87.3 fL (81.0-99.0); Mean Platelet Volume 10.4 fL (9.5-13.5); Monocytes Absolute Auto 0.8 10^3/uL (0.3-0.8); Monocytes Percent Auto 8.4 % (1.7-12.0); Neutrophils Absolute Auto 5.6 10^3/uL (1.4-6.5); Neutrophils Percent Auto 57.5 % (43.0-75.0); Platelet Count 351 10^3/uL (150-450); Red Blood Count 4.97 10^6/uL (4.20-5.40); Red Cell Distribution Width 12.5 % (11.0-15.0); White Blood Count 9.8 10^3/uL (4.0-11.0)
[2025-02-09 04:07] LABS: Vitamin B12 1000 pg/mL (232-1245)
== END 2025-02-13 08:11 | disposition home or self-care (01) ==
LOC: HEMC 07:39
PROVIDERS: PCP Family Medicine; Visit Provider Internal Medicine Hematology & Oncology
DX: D50.9 Iron deficiency anemia, unspecified (principal); D75.839 Thrombocytosis, unspecified; D72.829 Elevated white blood cell count, unspecified; K90.9 Intestinal malabsorption, unspecified; Z98.51 Tubal ligation status; F17.210 Nicotine dependence, cigarettes, uncomplicated; N92.0 Excessive and frequent menstruation with regular cycle
CPT/HCPCS: 36415; 80053; 82306; 82607; 82728; 83540; 83550; 85025; G0463

== ENCOUNTER 2025-05-14 08:52 | Outpatient (RCR) | payer OTHER, SELFPAY ==
[2025-05-09 16:30] LABS: Hematocrit 46.8 % (36.0-48.0); Hemoglobin 15.9 g/dL (12.0-16.0); Immature Granulocytes Abs Auto 0.02 10^3/uL (0.00-0.03); Immature Granulocytes Pct Auto 0.2 % (0.0-0.5); Lymphocytes Absolute Auto 2.5 10^3/uL (1.2-3.8); Mean Corpuscular HGB Conc 34.0 g/dL (29.9-35.2); Mean Corpuscular Hemoglobin 29.3 pg (26.7-34.0); Mean Corpuscular Volume 86.3 fL (81.0-99.0); Platelet Count 367 10^3/uL (150-450); Red Blood Count 5.42 10^6/uL (4.20-5.40); White Blood Count 8.3 10^3/uL (4.0-11.0)
[2025-05-09 16:45] LABS: Anion Gap 15.4; Blood Urea Nitrogen 10.0 mg/dL (7.0-18.0); Calcium 8.8 mg/dL (8.5-10.1); Carbon Dioxide 24.7 mmol/L (21.0-32.0); Chloride 103 mmol/L (98-107); Estimated GFR (African America >60 (>=60 mL/min/1.73m^2); Estimated GFR (Non-African Ame >60 (>=60 mL/min/1.73m^2); Glucose 98 mg/dL (74-106); Potassium 4.1 mmol/L (3.5-5.1); Sodium 139 mmol/L (136-145)
[2025-05-09 17:51] LABS: Iron 106.0 ug/dL (50.0-170.0); Percent Iron Saturation 26.3 %; Total Iron Binding Capacity 403.0 ug/dL (250.0-450.0)
[2025-05-09 18:20] LABS: Ferritin 24.0 ng/mL (8.0-252.0)
[2025-05-11 04:09] LABS: Vitamin B12 672 pg/mL (232-1245)
== END 2025-06-04 23:59 | disposition home or self-care (01) ==
LOC: HEMC 08:52
PROVIDERS: PCP Family Medicine; Visit Provider Internal Medicine Hematology & Oncology
DX: D75.839 Thrombocytosis, unspecified (principal); D50.9 Iron deficiency anemia, unspecified; D72.829 Elevated white blood cell count, unspecified; K90.9 Intestinal malabsorption, unspecified; K21.9 Gastro-esophageal reflux disease without esophagitis; Z98.51 Tubal ligation status; F17.210 Nicotine dependence, cigarettes, uncomplicated; N92.0 Excessive and frequent menstruation with regular cycle; R53.83 Other fatigue; R06.09 Other forms of dyspnea; E55.9 Vitamin D deficiency, unspecified
CPT/HCPCS: 36415; 80048; 82306; 82607; 82728; 83540; 83550; 85025; G0463

== ENCOUNTER 2025-06-05 08:41 | Outpatient (OUT) | payer OTHER, SELFPAY ==
--- OUTSIDE RECORDS SUMMARY | 2024-03-13 05:00 | XMS_ITS ---
Author Organization The [facility] in [place] Address [address] [place] [address] Care Team Providers Care Guest Services Officer Name Role Phone Taya Espinosa Primary Care Provider Shayla Anton Unavailable [phone] REASON FOR VISIT MD Encounters Encounter Location Date Provider Diagnosis The [facility] Oncology [address] [place] [address] 03/13/2024 Shayla Cruz Plan Of Treatment Next Appt Details Provider Name:Shayla Cruz , 08/13/2025 08:30:00 AM, [address] [place], [address], Progress Notes * Wayne WASHINGTON LDOB:[birth year] (44 yo F)Acc No.[id number]:03/13/2024 UNLOCKED PROGRESS NOTE Progress Notes Patient: Jose Wayne RAYA Provider: Tiffanie Cruz M.D. :1980 A ge:43 Y S ex:Female Date:03/13/2024 Address:[address] [place] [phone] Pcp:Taya Espinosa Subjective: * Chief Complaints: * 1 . MD. * Medical History: Objective: * Vitals: Assessment: Plan: * Treatment: * * Electronic signature of Jon Cruz MD, [id number] on 06/05/2025 at 08:45 AM EDT Sign off status: Pending Visit Status: C ANC (Cancelled) * Provider: Tiffanie Cruz M.D. Date: 0 03/13/2024 Generated for Colette sheppard/Rich/Bety on: 08:45 AM EDT
--- OUTSIDE RECORDS SUMMARY | 2024-03-13 05:45 | XMS_ITS ---
Author Organization The [facility] in [place] Address [address] [place] [address] Care Team Providers Care Director Of Player Personnel Name Role Phone Taya Espinosa Primary Care Provider Shayla Anton Unavailable [phone] REASON FOR VISIT MD Encounters Encounter Location Date Provider Diagnosis The [facility] Oncology [address] [place] [address] 03/13/2024 Shayla Cruz Plan Of Treatment Next Appt Details Provider Name:Shayla Cruz , 08/13/2025 08:30:00 AM, [address] [place], [address], Progress Notes * Wayne WASHINGTON LDOB:[birth year] (44 yo F)Acc No.[id number]:03/13/2024 UNLOCKED PROGRESS NOTE Progress Notes Patient: Jose Wayne RAYA Provider: Tiffanie Cruz M.D. :1980 A ge:43 Y S ex:Female Date:03/13/2024 Address:[address] [place] [phone] Pcp:Taya Espinosa Subjective: * Chief Complaints: * 1 . MD. * Medical History: Objective: * Vitals: Assessment: Plan: * Treatment: * * Electronic signature of Jon Cruz MD, [id number] on 06/05/2025 at 08:46 AM EDT Sign off status: Pending Visit Status: A PSYCHIATRIC (Voice) * Provider: Tiffanie Cruz M.D. Date: 0 03/13/2024 Generated for Colette sheppard/Rich/Bety on: 1 08:46 AM EDT
--- OUTSIDE RECORDS SUMMARY | 2024-09-18 04:00 | XMS_ITS ---
Author Organization The [facility] in [place] Address [address] [place] [address] Care Team Providers Care Postie Name Role Phone Taya Espinosa Primary Care Provider Shayla Anton Unavailable [phone] REASON FOR VISIT MD Encounters Encounter Location Date Provider Diagnosis The [facility] Oncology [address] [place] [address] 09/18/2024 Shayla Cruz Plan Of Treatment Next Appt Details Provider Name:Shayla Cruz , 08/13/2025 08:30:00 AM, [address] [place], [address], Progress Notes * Wayne WASHINGTON LDOB:[birth year] (44 yo F)Acc No.[id number]:09/18/2024 UNLOCKED PROGRESS NOTE Progress Notes Patient: Jose Wayne RAYA Provider: Tiffanie Cruz M.D. :1980 A ge:44 Y S ex:Female Date:09/18/2024 Address:[address] [place], [place] [address] Pcp:Taya Espinosa Subjective: * Chief Complaints: * 1 . MD. * Medical History: Objective: * Vitals: Assessment: Plan: * Treatment: * * Electronic signature of Jon Cruz MD, [id number] on 06/05/2025 at 08:46 AM EDT Sign off status: Pending Visit Status: C ONFPHOPEDRO (Voice) * Provider: Tiffanie Cruz M.D. Date: 0 09/18/2024 Generated for Colette sheppard/Rich/Bety on: 1 08:46 AM EDT
--- OUTSIDE RECORDS SUMMARY | 2024-10-10 10:09 | XMS_ITS ---
Author Name Auto Generated Organization [facility] Care Team Providers Care Java Developer Architect Name Role Phone BRANDI ESPINOSA Primary Care Unavailable DAVID GONZALEZ Attending Unavailable BRANDON JACKSON Attending Unavailable PROBLEMS DATE TYPE CONDITION / CODE ATTENDING STATUS [facility] 10/24/2023 Admitting Diagnosis Essential (primary) hypertension / I10(ICD-10) BRANDON JACKSON [facility] 08/25/2024 Unknown Elevated blood-pressure reading, without diagnosis of hypertension / R03.0(ICD-10) GONZALEZ, [facility] 08/25/2024 Unknown Headache, unspecified / R51.9(ICD-10) GONZALEZ, [facility] 08/25/2024 Unknown Essential (prima ry) hypertension / I10(ICD-10) GONZALEZ, [facility] 08/25/2024 Unknown Hypertension / FREETEXT(AOF) GONZALEZ, [facility] 08/25/2024 Unknown HIGH BLOOD PRESS URE / UNK(Unknown) GONZALEZ, 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 Amlodipine was stopped for awhile she says due to anemia. She sees Dr. Cruz for this. She is taking amlodipine again. Had EKG in Aug 2024, and had labs a few weeks ago for Dr. Cruz. Denies chest pain, SOB, and palpitations. HPI: Diane Washington is a 44 y.o. female PMHx: HTN, fibromuscular dysplasia of [...] extremity edema intermittently No significant chest pain UPDATE Doing well; blood pressure well-controlled No new cardiac symptoms Few months ago, she had an episode of uncontrolled blood pressure however was not on Norvasc at the time. This was in relationship to low blood pressure that occurred after iron infusions. Her blood pressure at home for the past month or so has been well-controlled. Cardiology ROS: Review of Systems Constitutional: Positive for malaise/fatigue. All other systems reviewed and are negative. Past Medical History She has a past medical history of Diabetes mellitus ([facility]) and Hypertension. Surgical History She has no past surgical history on file. Social History She reports that she has been smoking cigarettes. She has a 7.5 pack-year smoking history. She does not have any smokeless tobacco history on file. She reports current alcohol use. No history on file for drug use. Family History Family History Problem Relation Name Age of Onset Heart attack Mother Diabetes Mother Heart attack Father Allergies Chantix [varenicline] Medications Current Outpatient Medications: amLODIPine (Norvasc) 10 mg tablet, TAKE ONE TABLET BY MOUTH ONCE DAILY IN THE MORNING, Disp: 90 tablet, Rfl: 3 buPROPion SR (Wellbutrin SR) 150 mg 12 hr tablet, Take 1 tablet (150 mg) by mouth in the morning and at bedtime. Do not crush, chew, or split. *Start by taking 1 tablet daily for 3 days then increase to twice daily*, Disp: 60 tablet, Rfl: 11 losartan (Cozaar) 50 mg tablet, TAKE ONE TABLET BY MOUTH ONCE DAILY DIRECTED, Disp: 90 tablet, Rfl: 3 Last Recorded Vitals BP 112/80 (BP Location: Left arm, Patient Position: Sitting) Pulse 83 Ht 1.575 m (5' 2 ) Wt 62.6 kg (138 lb) SpO2 97% BMI 25.24 kg/m??? Physical Examination: GENERAL: alert and oriented [...] with Dr. Mena or myself in the [facility] in the next 3-4 weeks. 4. Follow up with Dr. Espinosa as scheduled. PROCEDURES: 1. Catheter placement in the abdominal aorta. 2. Abdominal aortography. 3. Bilateral selective renal angiography. 4. Balloon angioplasty of the right renal artery. 5. Placement of a 6-Serbian MynxGrip closure device. Echocardiogram 10/28/2023: Normal ventricular systolic function. LVEF is 65%. No significant valvular dysfunction Normal diastolic function No pericardial effusion Unable to assess right-sided pressures due to lack of measurable tricuspid regurgitation Assessment: Fibromuscular dysplasia of the right renal artery s/p balloon angioplasty Essential hypertension Dyspnea on exertion - likely pulmonary Smoker Plan: Reassurance - echocardiogram is normal Continue current medical therapy which includes an angiotensin receptor fariba and a calcium channel fariba She is to monitor her blood pressure at home and let us know of any significant fluctuations Will order renal artery duplex to evaluate for evidence of recurrent fibromuscular dysplasia Encouraged to stop smoking As long as the duplex is within normal limits, she is to return to clinic in 1 year or sooner should problems arise Brandon Jackson MD, MPH, FACC, [facility], [facility] Interventional Cardiology Pager Email: [email or web address] OFFICE VISIT Observed: 10/10/2024 9:15 AM Status: COMPLETED Source: [facility] [id number] Diane Washington 02/1980 F Date Provider Department Center 10/10/2024 271-BRANDON JACKSON [facility] Family History Problem Relation Age of Onset Heart attack Mother Diabetes Mother Heart attack Father Family Status - Relation Status Age at Mother Father Level of Service:72805 [place] OFFICE/OUTPATIENT ESTABLISHED MOD MDM 30 MIN 1 HOUR TROP I, HIGH SENSITIVITY Collected: 08/06 10:35 PM Status: COMPLETED Source: [facility] TYPE CODE TESTS RESULT OUT OF RANGE REFERENCE UNITS LAB TNIHS1(LOINC) 1 HOUR TROP I, HIGH SENSITIVITY 3 <16 ng/L Performed By: #### 54111-0 # ### [facility] ([id number]) [address] [place] [address] CBC AND AUTO DIFF Collected: 08/25/2024 9:26 PM Status: COMPLETED Source: [facility] TYPE CODE TESTS RESULT OUT OF RANGE REFERENCE UNITS LAB WBC(LOINC) WBC COUNT 14.3 High 4.0-11.0 X10E9/L LAB RBC(LOINC) RBC COUNT 5.46 High 3.80-5.20 X10E12/L LAB HGB(LOINC) HEMOGLOBIN 16.4 High 11.7-15.5 g/dL LAB HCT(LOINC) HEMATOCRIT 48.0 High 35-47 % LAB MCV(LOINC) MCV 88 80-100 fL LAB MCH(LOINC) MCH 30.0 27-34 pg LAB MCHC(LOINC) MCHC 34.1 32-36 g/dL LAB RDW(LOINC) RDW 13.4 11.5-15.0 % LAB PLTC(LOINC) PLATELET COUNT 324 150-450 X10E9 /L LAB MPV(LOINC) MPV 7.5 7-12 fL LAB NEUT(LOINC) % NEUTROPHILS 74.4 % LAB LYMP(LOINC) % LYMPHOCYTES 17.2 % LAB MONO(LOINC) % MONOCYTES 6.9 % LAB EOS(LOINC) % EOSINOPHILS 1.2 % LAB BASO(LOINC) % BASOPHILS 0.3 % LAB ANEUT(LOINC) ABSOLUTE NEUTROPHIL 10.6 High 1.5-6.6 X10E9/L LAB ALYMP(LOINC) ABSOLUTE LYMPHOCYTE 2.4 1.0-3.5 X10E9/L LAB AMONO(LOINC) ABSOLUTE MONOCYTE 1.0 High 0-0.9 X10E9/L LAB AEOS(LOINC) ABSOLUTE EOSINOPHIL 0.2 0.0-0.4 X10E9/L LAB ABASO(LOINC) ABSOLUTE BASOPHIL 0.0 0.0-0.2 X10E9/L Performed By: #### CBCA, CMP , 11227-4, 12753-7 #### [facility] ([id number]) [address] [place] [address], [place] [address] COMPREHENSIVE METABOLIC PANEL Collected: 2023 9:26 PM Status: COMPLETED Source: [facility] TYPE CODE TESTS RESULT OUT OF RANGE REFERENCE UNITS LAB NA(LOINC) SODIUM 135 134-146 mmol/L LAB K(LOINC) POTASSIUM 3.6 3.5-5.0 mmol/L LAB CL(LOINC) CHLORIDE 104 98-109 mmol/L LAB CO2(LOINC) CARBON DIOXIDE 22 22-32 mmol/L LAB AGAP(LOINC) ANION GAP 9 5-15 mmol/L LAB BUN(LOINC) BLOOD UREA NITROGEN 12 5-23 mg/dL LAB CRET(LOINC) CREATININE 0.75 0.40-1.00 mg/dL Result Comment: METHOD TRACE ABLE TO IDMS STANDARD LAB GLU(LOINC) GLUCOSE 105 High 65-99 mg/dL LAB CA(LOINC) CALCIUM 8.9 8.5-10.5 mg/dL LAB TP(LOINC) TOTAL PROTEIN 7.5 6.0-8.0 g/dL LAB ALB(LOINC) ALBUMIN 4.1 3.2-5.3 g/dL LAB ALK(LOINC) ALKALINE PHOSPHATASE 65 39-130 U/L LAB AST(LOINC) AST 17 0-41 U/L LAB ALT1(LOINC) ALT 24 0-31 U/L LAB TBIL(LOINC) BILIRUBIN,TOTAL 0.7 0.3-1.2 mg/d L LAB EGFR(LOINC) eGFR (CKD-EPI) NON-RACE DEPENDENT >90 >59 ml/min/1 .73sq.m Result Comment: Reported eGFR is based on the CKD-EPI 2020 equation that does not use a race coefficient. Performed By: #### CARLOS A COTTER , 87332-6, 68651-3 #### [facility] ([id number]) [address] [place] [address] MAGNESIUM Collected: 08/25/2024 9:26 PM S tatus: COMPLETED Source: [facility] TYPE CODE TESTS RESULT OUT OF RANGE REFERENCE UNITS LAB MG(LOINC) MAGNESIUM 2.0 1.8-2.6 mg/dL Performed By: #### CARLOS A COTTER , 74803-0, 30757-7 #### [facility] ([id number]) [address] [place] [address] TROPONIN I, HIGH SENSITIVITY Collected: 9:26 PM Status: COMPLETED Source: [facility] TYPE CODE TESTS RESULT OUT OF RANGE REFERENCE UNITS LAB TNIHS(LOINC) TROPONIN I, HIGH SENSITIVITY 3 <16 ng/L Performed By: #### CARLOS A COTTER , 06041-0, 55358-1 #### [facility] ([id number]) [address] [place] [address] BRAIN WO CONT Observed: 08/25/2024 9:22 PM Status: COMPLETED Source: [facility] CT BRAIN WO CONT STUDY: CT BRAIN WO CONT INDICATION: Headache, new or worsening, neuro deficit (Age 18-49y); severe front headache and vomiting, hypertension. TECHNIQUE: * CT head was performed without intravenous contrast using the standard protocol. Automated exposure control was utilized. * All CT scans at this facility use dose modulation, iterative reconstruction, and/or weight based dosing when appropriate to reduce radiation dose to as low as reasonably achievable. FINDINGS: No evidence of acute intracranial hemorrhage, territorial infarct, mass effect, midline shift, or extra-axial fluid collection. Ventricles, sulci and cistern are unremarkable. Brain volume is age appropriate. Orbits and globes appear unremarkable. Soft tissues are unremarkable. Atherosclerotic plaque is noted in the carotid siphons bilaterally. Mild polypoid mucosal thickening of the right maxillary sinus. Mastoid air cells are broadly clear. No evidence of aggressive osseous lesion. IMPRESSION: * No acute intracranial abnormality, by CT. Finalized by Darron Hercules on 08/25/2024 9:26 PM ALLERGIES DATE TYPE / CODE NAME / CODE REACTION SEVERITY SOURCE 12/09/2022 DRUG INGREDI/55435027 3(SNOMED CT) VARENICLINE Other [facility] Drug Class/930204907( SNOMED CT) NO KNOWN ALLERGIES [facility] ENCOUNTERS ADMIT/DISCHARGE ACCOUNT NUMBER ADMITTING ENCOUNTER CLASS LOCATION SOURCE 10/10/2024/ 5 [id number] Ambulatory Building:[facility] 08/25/2024/ 4 [id number] Emergency Building:[facility] _EDRoom: 8Bed: 08 [facility] PAYERS ENCOUNTER GUARANTOR PAYER SUBSCRIBER SOURCE 10/10/2024 Primary Insurance:MEDICAL MUTUALPolicy Number: [id number] Date:2022-10-06 DIANE WONG: [id number] [address] [address] [facility] 08/25/2024 DIANE WONG: [id number] [place] [address]Ehp: () Primary Insurance[place] SUPERMEDPolicy Number: [id number] Date:2021-03-05 DIANE WASHINGTONDOB: [id number] [place], [place] [address]Das: () () [facility]
--- OUTSIDE RECORDS SUMMARY | 2025-02-12 04:30 | XMS_ITS ---
Author Organization The [facility] in [place] Address [address] [place] [address] Care Team Providers Care Necktie Turner Name Role Phone Taya Espinosa Primary Care Provider Shayla Anton Unavailable [phone] REASON FOR VISIT MD Encounters Encounter Location Date Provider Diagnosis The [facility] [address] [place] [address] 02/12/2025 Shayla Cruz Plan Of Treatment Next Appt Details Provider Name:Shayla Cruz , 08/13/2025 08:30:00 AM, [address] [place], [address], Progress Notes * Wayne WASHINGTON LDOB:[birth year] (44 yo F)Acc No.[id number]:02/12/2025 UNLOCKED PROGRESS NOTE Progress Notes Patient: Jose Wayne RAYA Provider: Tiffanie Cruz M.D. :1980 A ge:44 Y S ex:Female Date:02/12/2025 Address:[address] [place] [phone] Pcp:Taya Espinosa Subjective: * Chief Complaints: * 1 . MD. * Medical History: Objective: * Vitals: Assessment: Plan: * Treatment: * * Electronic signature of Jon Cruz MD, [id number] on 06/05/2025 at 08:45 AM EDT Sign off status: Pending Visit Status: C ONANIKET (Voice) * Provider: Tiffanie Cruz M.D. Date: 0 02/12/2025 Generated for Colette sheppard/Rich/Bety on: 1 08:45 AM EDT
--- OUTSIDE RECORDS SUMMARY | 2025-05-14 05:00 | XMS_ITS ---
Author Organization The [facility] in [place] Address [address] [place] [address] Care Team Providers Care Feed Weigher Name Role Phone Taya Espinosa Primary Care Provider Shayla Anton Unavailable [phone] REASON FOR VISIT MD Encounters Encounter Location Date Provider Diagnosis [facility] [address] [place] [address] 05/14/2025 Shayla Cruz Plan Of Treatment Next Appt Details Provider Name:Shayla Cruz , 08/13/2025 08:30:00 AM, [address] [place], [address], Progress Notes * Wayne WASHINGTON LDOB:[birth year] (44 yo F)Acc No.[id number]:05/14/2025 UNLOCKED PROGRESS NOTE Progress Notes Patient: Jose Wayne RAYA Provider: Tiffanie Cruz M.D. :1980 A ge:44 Y S ex:Female Date:05/14/2025 Address:[address] [place] [phone] Pcp:Taya Espinosa Subjective: * Chief Complaints: * 1 . MD. * Medical History: Objective: * Vitals: Assessment: Plan: * Treatment: * * Electronic signature of Jon Cruz MD, [id number] on 06/05/2025 at 08:45 AM EDT Sign off status: Pending Visit Status: C ONFPILENE (Voice) * Provider: Tiffanie Cruz M.D. Date: 0 05/14/2025 Generated for Colette sheppard/Rich/Bety on: 1 08:45 AM EDT
--- NOTE | 2025-06-05 08:45 | MM_ITS ---
Patient Name: DIANE MAHONEY MR#: [id number] : 1980 Exam Date: 06/05/2025 Ordering Doctor: DR BRANDI PRETTY M.D. RADIOLOGY REPORT PROCEDURE: MM TOMOSYNTHESIS SCREENING BI COMPARISON: None. INDICATIONS: Screening Calculator Name NCI Breast Cancer Risk Assessment Tool 5 Year Breast Cancer Risk 0.50% Lifetime Breast Cancer Risk 7.10% Personal Breast Cancer No Personal Ovarian Cancer No Treatments None Family Cancers None LOCATION: [facility] BREAST COMPOSITION: The breasts are heterogeneously dense, which may obscure small masses. FINDINGS: DIAGNOSTIC CATEGORY 1--NEGATIVE. RIGHT BREAST: No significant suspicious finding. LEFT BREAST: No significant suspicious finding. RECOMMENDATIONS: ROUTINE MAMMOGRAM AND CLINICAL EVALUATION IN 12 MONTHS. Dictated by: Reji Bonilla DO on 06/05/2025 at 15:21 Approved by: Reji Bonilla DO on 06/05/2025 at 15:23
--- OUTSIDE RECORDS SUMMARY | 2025-06-05 08:45 | XMS_ITS | Encounter Summary ---
Author Organization The [facility] Address [address] [place] [address] Care Team Providers Care Pie Filling Mixer Name Role Phone Taya Espinosa MD Primary Care Provider Reason for Visit * Reason Comments Med Refill Encounter Details Date Type Department Care Team (Late st Contact Info) Description 09/27/2024 Refill [facility] [address] [place] [address] Mary Jane Hutchinson, FLYING I INSTRUCTOR [address] [place] [address] Essential hypertension Social History Tobacco Use Types Packs/Day Years Used Date Smoking Tobacco: Every Day Cigarettes 0.5 15 Alcohol Use Standard Drinks/Week Comments Yes 0 (1 standard drink = 0.6 oz pur e alcohol) [place] Safety & Environment Answer Date Rec orded Fear of Current or Ex-Partner Not on file Emotionally Abused Not on file 10/27/2023 Physically Abused Not on file 10/27/2023 Sexually Abused Not on file 10/27/2023 Physically or Sexually Abused Not on file Comments Unknown Sex and Gender Information Value Date Recorded Sex Assigned at Not on file Legal Sex Female 11:59 PM EDT Gender Identity Not on file Sexual Orientation Not on file documented as of this encounter Plan of Treatment Not on file documented as of this encounter Visit Diagnoses Diagnosis Essential hypertension Unspecified essential hypertension documented in this encounter Care Teams Pie Filling Mixer Relationship Specialty Start Date End Date Taya Espinosa MD [address] [facility] [address] PCP - General 12/08/22 documented as of this encounter
--- OUTSIDE RECORDS SUMMARY | 2025-06-05 08:46 | XMS_ITS | Clinical Summary ---
Author Organization The [facility] Address [address] [place] [address] Care Team Providers Care Sales Agent Food Vending Service Name Role Phone Taya Espinosa MD Primary Care Provider [phone] Allergies Active Allergy Reactions Criticality Noted Date Comments Varenicline Other 12/09/2022 Intolerance, vivid dreams, mood swings, irritability Medications buPROPion SR (Wellbutrin SR) 150 mg 12 hr tabletIndications :Smoking trying to quit Take 1 tablet (150 mg) by mouth in the morning and at bedtime. Do not crush, chew, or split. *Start by taking 1 tablet daily for 3 days then increase to twice daily* 60 tablet 11 3 Active ergocalciferol (Vitamin D-2) 1.25 MG (36119 Units) capsule Take 1 capsule by mouth every 7 (seven) days. 5 Active amLODIPine (Norvasc) 10 mg tabletIndications :Essential hypertension Take 1 tablet (10 mg) by mouth once daily as directed. 90 tablet 3 5 Active losartan (Cozaar) 50 mg tabletIndications :Essential hypertension TAKE ONE TABLET BY MOUTH ONCE DAILY DIRECTED 90 tablet 3 5 Active Active Problems Problem Noted Date Diagnosed Date Chronic fatigue 03/03/2024 PATTIE (obstructive sleep apnea) 03/03/2024 Fibromuscular dysplasia of right renal artery Essential hypertension 05/16/2017 4 Family History Medical History Relation Name Comments Heart attack Father Diabetes Mother Heart attack Mother Relation Name Status Comments Father Mother Social History Tobacco Use Types Packs/Day Years Used Date Smoking Tobacco: Every Day Cigarettes 0.5 15 Tobacco Cessation:Ready to Q uit: No; Counseling Given: Not Answered Alcohol Use Standard Drinks/Week Comments Yes 0 [...] on file Sexual Orientation Not on file Last Filed Vital Signs Vital Sign Reading Time Taken Comments Blood Pressure 112/80 10/10/2024 9:19 AM EST Pulse 83 10/10/2024 9:19 AM EST Temperature - - Respiratory Rate - - Oxygen Saturation 97% 10/10/2024 9:19 AM EST Inhaled Oxygen Concentration - - Weight 62.6 kg (138 lb) 10/10/2024 9:19 AM EST Height 157.5 cm (5' 2 ) 10/10/2024 9:19 AM EST Body Mass Index 25.24 10/10/2024 9:19 AM EST Plan of Treatment Health Maintenance Due Date Last Done Comments Depression Screening 1993 Varicella Vaccines (1 of 2 - 13+ 2-dose series) 1994 Hepatitis B Vaccines (1 of 3 - 19+ 3-dose series) 2000 Pneumococcal Vaccine: Pediat rics (0 to 5 Years) and At-Risk Patients (6 to 64 Years) (1 of 2 - PCV) 2000 Pap Smear 2002 Cervical Cancer Screening 2011 HPV/Cotest 2011 Mammogram 2021 COVID-19 Vaccine ( - 2023-2 5 season) 2025 Influenza Vaccine (#1) 2025 Adult Tetanus 03/20/2027 03/20/2017 Zoster Vaccines (1 of 2) 2031 HIB Vaccines Aged Out No longer eligi ble based on patient's age to complete this topic HPV Vaccines Aged Out No longer eligi ble based on patient's age to complete this topic IPV Vaccines Aged Out No longer eligi ble based on patient's age to complete this topic Meningococcal B Vaccine Aged Out No l onger eligible based on patient's age to complete this topic Meningococcal Vaccine Aged Out No gustavo comfort eligible based on patient's age to complete this topic Rotavirus Vaccines Aged Out No longer eligible based on patient's age to complete this topic Insurance [employer] [place] [id number] Care Teams Sales Agent Food Vending Service Relationship Specialty Start Date End Date Taya Espinosa MD [address] [facility] [address] PCP - General 12/08/22
--- OUTSIDE RECORDS SUMMARY | 2025-06-05 08:46 | XMS_ITS | Clinical Summary ---
Author Organization [employer] Address [id number] [address] [place] [address] Care Team Providers Care Child Welfare Caseworker Name Role Phone Taya Espinosa MD Primary Care Provider [phone] Allergies No known active allergies Medications lisinopriL (PRINIVIL,ZESTRI L) 10 mg tablet Take 10 mg by mouth in the morning. Active amLODIPine (NORVASC) 10 mg tablet Take 10 mg by mouth in the morning. Active losartan (COZAAR) 50 mg tablet Take 1 tablet (50 mg total) by mouth in the morning. Active Social History Tobacco Use Types Packs/Day Years Used Date Smoking Tobacco: Every Day Cigarettes Smokeless Tobacco: Never Tobacco Cessation:Ready to Q uit: Not Asked; Counseling Given: Not Answered Alcohol Use Standard Drinks/Week Comments Not Currently 0 (1 standard drink = 0.6 oz pur e alcohol) Childcare Answer Date Recorded Childcare Unknown 02/14/2019 Employment Answer Date Recorded Employment Unknown 02/14/2019 Hunger Screening Answer Date Recorded Within the past 12 months we worried whether our food would run out before we got money to buy more. Never True 08/25/2024 Within the past 12 months th e food we bought just didn't last and we didn't have money to get more. Never True 08/25/2024 Comments No Sex and Gender Information Value Date Recorded Sex Assigned at Not on file Legal Sex Female 11:29 AM EDT Gender Identity Not on file Sexual Orientation Not on file Last Filed Vital Signs Vital Sign Reading Time Taken Comments Blood Pressure 151/89 08/25/2024 10:57 PM EST Pulse 72 08/25/2024 10:57 PM EST Temperature 36.3 C (97.4 F) 08/25/2024 9:00 PM EST Respiratory Rate 22 08/25/2024 10:57 PM EST Oxygen Saturation 96% 08/25/2024 10:57 PM EST Inhaled Oxygen Concentration - - Weight 54.4 kg (120 lb) 08/25/2024 9:00 PM EST Height 154.9 cm (5' 1 ) 08/25/2024 9:00 PM EST Body Mass Index 22.67 08/25/2024 9:00 PM EST Plan of Treatment Health Maintenance Due Date Last Done Comments Tobacco Counseling 1980 Depression Screening 1993 Pap Smear 2002 Influenza Vaccine 05/06/2025 Adult BMI Screening 08/25/2025 08/25/2024 Tobacco Screening 08/25/2025 08/25/2024 DTaP,Tdap and Td Vaccines (2 - Td or Tdap) 03/20/2027 03/20/2017 Medical Devices Not on file Insurance [employer] Care Teams Child Welfare Caseworker Relationship Specialty Start Date End Date Taya Espinosa MD [address] [place] [address] PCP - General Family Medicine 02/15/22
--- OUTSIDE RECORDS SUMMARY | 2025-06-05 08:46 | XMS_ITS | Patient Health Record ---
Author Organization [facility] [place] Address [address] [place] [address] Care Team Providers Care Containers Sales Representative Name Role Phone Taya Espinosa Primary Care Provider Shayla Anton Unavailable [phone] Results Component Value Reference Range Notes Vitamin B12 (Not yet reviewe d by provider) Interpretation: Performing Lab: Notes/Report: [facility] , Vitamin B12 [phone] pg/mL Retail Associate: Royal Naylor PhD, Phone: [phone] [address] [place] [address] [phone] Performed at: [facility] Performing Lab: see note LC - [facility] LB Vitamin B12 (Not yet reviewe d by provider) Interpretation: Performing Lab: Notes/Report: [facility] , Vitamin B12 [phone] pg/mL [address] [place] [address] [phone] Retail Associate: Royal Naylor PhD, Phone: [phone] Performed at: [facility] Performing Lab: see note LC - [facility] LB CBC AUTO DIFF (Not yet revie wed by provider) Interpretation: Performing Lab: Notes/Report: [facility] , White Blood Count 8.3 4.0-11.0 10 3/uL Red Blood Count 5.42 4.20-5.40 10 6/uL Hemoglobin 15.9 12.0-16.0 g/dL Hematocrit 46.8 36.0-48.0 % Mean Corpuscular Volume 86.3 81.0-99.0 fL Mean Corpuscular Hemoglobin 29.3 26.7-34.0 pg Mean Corpuscular HGB Conc 34.0 29.9-35.2 g/dL Red Cell Distribution Width 13.1 11.0-15.0 % Platelet Count 367 150-450 10 3/uL Mean Platelet Volume 9.0 9.5-13.5 fL Neutrophils Percent Auto 58.9 43.0-75.0 % Lymphocytes Percent Auto 30.4 20.5-60.0 % Monocytes Percent Auto 7.5 1.7-12.0 % Eosinophils Percent Auto 2.2 0.9-7.0 % Basophils Percent Auto 0.8 0.2-2.0 % Immature Granulocytes Pct Auto 0.2 0.0-0.5 % Neutrophils Absolute Auto 4.9 1.4-6.5 10 3/uL Lymphocytes Absolute Auto 2.5 1.2-3.8 10 3/uL Monocytes Absolute Auto 0.6 0.3-0.8 10 3/uL Eosinophils Absolute Auto 0.2 0.0-0.7 10 3/uL Basophils Absolute Auto 0.1 0.0-0.1 10 3/uL Immature Granulocytes Abs Auto 0.02 0.00-0.03 10 3/uL Performing Lab: see note ML - [facility] LB FERRITIN (Not yet reviewed b y provider) Interpretation: Performing Lab: Notes/Report: [facility] , Ferritin 24.0 8.0-252.0 ng/mL Performing Lab: see note ML - [facility] LB IRON AND TIBC (Not yet revie wed by provider) Interpretation: Performing Lab: Notes/Report: [facility] , Iron 106.0 50.0-170.0 ug/dL Total Iron Binding Capacity 403.0 250.0-450.0 u g/dL Percent Iron Saturation 26.3 Performing Lab: see note ML - [facility] LB VITAMIN D 25 [place] (Not yet rev iewed by provider) Interpretation: Performing Lab: Notes/Report: [facility] , Vitamin D 21.5 30-100 ng/mL Vit D sufficient 20-<30 ng/mL Vit D insufficient <20 ng/mL Vit D deficient >100 ng/mL Potential Toxicity Performing Lab: see note ML - [facility] LB Vitamin B12 (Not yet reviewe d by provider) Interpretation: Performing Lab: Notes/Report: [facility] , Vitamin B12 [phone] pg/mL [address] [place], [place] [id number] Performed at: - [facility] [place] Retail Associate: Royal Naylor PhD, Phone: [phone] Performing Lab: see note - [facility] LB VITAMIN D 25 [place] (Not yet rev iewed by provider) Interpretation: Performing Lab: Notes/Report: [facility] , Vitamin D 34.6 30-100 ng/mL Vit D sufficient >100 ng/mL Potential Toxicity <20 ng/mL Vit D deficient 20-<30 ng/mL Vit D insufficient Performing Lab: see note ML - [facility] LB PROF 14(COMP METB) (Not yet reviewed by provider) Interpretation: Performing Lab: Notes/Report: [facility] , Sodium 137 136-145 mmol/L Potassium 3.8 3.5-5.1 mmol/L Chloride 101 98-107 mmol/L Carbon Dioxide 27.6 21.0-32.0 mmol/L Anion Gap 12.2 Glucose 101 74-106 mg/dL Blood Urea Nitrogen 15.0 7.0-18.0 mg/dL Creatinine 0.76 0.55-1.02 mg/dL Estimated GFR ( Tran >60 >=60 mL/mi n/1.73m 2 Estimated GFR (Non- Cindy >60 >=60 mL/mi n/1.73m 2 BUN Creatinine Ratio 19.7 Calcium 9.4 8.5-10.1 mg/dL Bilirubin Total 0.1 0.2-1.0 mg/dL Aspartate Amino Transferase 8 15-37 U/L Alanine Aminotransferase 25 14-59 U/L Alkaline Phosphatase 80 46-116 U/L Total Protein 7.8 6.4-8.2 g/dL Albumin Level 3.8 3.4-5.0 g/dL Globulin 4.0 Albumin Globulin Ratio 0.9 Performing Lab: see note ML - [facility] LB IRON AND TIBC (Not yet revie wed by provider) Interpretation: Performing Lab: Notes/Report: [facility] , Iron 51.0 50.0-170.0 ug/dL Total Iron Binding Capacity 370.0 250.0-450.0 u g/dL Percent Iron Saturation 13.8 Performing Lab: see note ML - [facility] LB FERRITIN (Not yet reviewed b y provider) Interpretation: Performing Lab: Notes/Report: [facility] , Ferritin 30.0 8.0-252.0 ng/mL Performing Lab: see note ML - [facility] LB CBC AUTO DIFF (Not yet revie wed by provider) Interpretation: Performing Lab: Notes/Report: [facility] , White Blood Count 9.8 4.0-11.0 10 3/uL Red Blood Count 4.97 4.20-5.40 10 6/uL Hemoglobin 15.1 12.0-16.0 g/dL Hematocrit 43.4 36.0-48.0 % Mean Corpuscular Volume 87.3 81.0-99.0 fL Mean Corpuscular Hemoglobin 30.4 26.7-34.0 pg Mean Corpuscular HGB Conc 34.8 29.9-35.2 g/dL Red Cell Distribution Width 12.5 11.0-15.0 % Platelet Count 351 150-450 10 3/uL Mean Platelet Volume 10.4 9.5-13.5 fL Neutrophils Percent Auto 57.5 43.0-75.0 % Lymphocytes Percent Auto 30.8 20.5-60.0 % Monocytes Percent Auto 8.4 1.7-12.0 % Eosinophils Percent Auto 2.3 0.9-7.0 % Basophils Percent Auto 0.7 0.2-2.0 % Immature Granulocytes Pct Auto 0.3 0.0-0.5 % Neutrophils Absolute Auto 5.6 1.4-6.5 10 3/uL Lymphocytes Absolute Auto 3.0 1.2-3.8 10 3/uL Monocytes Absolute Auto 0.8 0.3-0.8 10 3/uL Eosinophils Absolute Auto 0.2 0.0-0.7 10 3/uL Basophils Absolute Auto 0.1 0.0-0.1 10 3/uL Immature Granulocytes Abs Auto 0.03 0.00-0.03 10 3/uL Performing Lab: see note ML - [facility] LB Erythrocyte Sedimentation Ra te (Not yet reviewed by provider) Interpretation: Performing Lab: Notes/Report: [facility] , Erythrocyte Sedimentation Rate 13 <=20 mm/hr Performing Lab: see note ML - [facility] LB VITAMIN D 25 [place] (Not yet rev iewed by provider) Interpretation: Performing Lab: Notes/Report: [facility] , Vitamin D 8.1 30-100 ng/mL Vit D sufficient <20 ng/mL Vit D deficient >100 ng/mL Potential Toxicity 20-<30 ng/mL Vit D insufficient Performing Lab: see note ML - [facility] LB TSH (Not yet reviewed by pro vider) Interpretation: Performing Lab: Notes/Report: [facility] , Thyroid Stimulating Hormone 1.589 0.358-3.740 u IU/mL Performing Lab: see note ML - [facility] LB PROF 14(COMP METB) (Not yet reviewed by provider) Interpretation: Performing Lab: Notes/Report: [facility] , Sodium 139 136-145 mmol/L Potassium 4.3 3.5-5.1 mmol/L Chloride 104 98-107 mmol/L Carbon Dioxide 26.5 21.0-32.0 mmol/L Anion Gap 12.8 Glucose 99 74-106 mg/dL Blood Urea Nitrogen 13.0 7.0-18.0 mg/dL Creatinine 0.73 0.55-1.02 mg/dL Estimated GFR ( Tran >60 >=60 mL/mi n/1.73m 2 Estimated GFR (Non- Cindy >60 >=60 mL/mi n/1.73m 2 BUN Creatinine Ratio 17.8 Calcium 8.6 8.5-10.1 mg/dL Bilirubin Total 0.2 0.2-1.0 mg/dL Aspartate Amino Transferase 16 15-37 U/L Alanine Aminotransferase 32 14-59 U/L Alkaline Phosphatase 85 46-116 U/L Total Protein 7.6 6.4-8.2 g/dL Albumin Level 3.6 3.4-5.0 g/dL Globulin 4.0 Albumin Globulin Ratio 0.9 Performing Lab: see note ML - [facility] LB IRON AND TIBC (Not yet revie wed by provider) Interpretation: Performing Lab: Notes/Report: [facility] , Iron 73.0 50.0-170.0 ug/dL Total Iron Binding Capacity 357.0 250.0-450.0 u g/dL Percent Iron Saturation 20.4 Performing Lab: see note ML - [facility] LB FERRITIN (Not yet reviewed b y provider) Interpretation: Performing Lab: Notes/Report: [facility] , Ferritin 94.0 8.0-252.0 ng/mL Performing Lab: see note ML - [facility] LB CRP (Not yet reviewed by pro vider) Interpretation: Performing Lab: Notes/Report: [facility] , C Reactive Protein 0.51 <=0.50 mg/dL Performing Lab: see note ML - [facility] LB CBC AUTO DIFF (Not yet revie wed by provider) Interpretation: Performing Lab: Notes/Report: [facility] , White Blood Count 11.1 4.0-11.0 10 3/uL Red Blood Count 5.36 4.20-5.40 10 6/uL Hemoglobin 16.0 12.0-16.0 g/dL Hematocrit 46.9 36.0-48.0 % Mean Corpuscular Volume 87.5 81.0-99.0 fL Mean Corpuscular Hemoglobin 29.9 26.7-34.0 pg Mean Corpuscular HGB Conc 34.1 29.9-35.2 g/dL Red Cell Distribution Width 12.6 11.0-15.0 % Platelet Count 310 150-450 10 3/uL Mean Platelet Volume 9.3 9.5-13.5 fL Neutrophils Percent Auto 69.3 43.0-75.0 % Lymphocytes Percent Auto 19.6 20.5-60.0 % Monocytes Percent Auto 7.4 1.7-12.0 % Eosinophils Percent Auto 2.8 0.9-7.0 % Basophils Percent Auto 0.6 0.2-2.0 % Immature Granulocytes Pct Auto 0.3 0.0-0.5 % Neutrophils Absolute Auto 7.7 1.4-6.5 10 3/uL Lymphocytes Absolute Auto 2.2 1.2-3.8 10 3/uL Monocytes Absolute Auto 0.8 0.3-0.8 10 3/uL Eosinophils Absolute Auto 0.3 0.0-0.7 10 3/uL Basophils Absolute Auto 0.1 0.0-0.1 10 3/uL Immature Granulocytes Abs Auto 0.03 0.00-0.03 10 3/uL Performing Lab: see note ML - [facility] LB PROF CHEM 8 (BAS METB) (Not yet reviewed by provider) Interpretation: Performing Lab: Notes/Report: [facility] , Sodium 139 136-145 mmol/L Potassium 4.1 3.5-5.1 mmol/L Chloride 103 98-107 mmol/L Carbon Dioxide 24.7 21.0-32.0 mmol/L Anion Gap 15.4 Glucose 98 74-106 mg/dL Blood Urea Nitrogen 10.0 7.0-18.0 mg/dL Creatinine 0.67 0.55-1.02 mg/dL Estimated GFR ( Tran >60 >=60 mL/mi n/1.73m 2 Estimated GFR (Non- Cindy >60 >=60 mL/mi n/1.73m 2 BUN Creatinine Ratio 14.9 Calcium 8.8 8.5-10.1 mg/dL Performing Lab: see note ML - [facility] LB Reason For Referral No Information Encounters Encounter Location Date Provider Diagnosis [facility] [address] [place] [address], [place] [address] 09/18/2024 [facility] [address] [place] [facility] [place] [address] 02/12/2025 [facility] [address] [place] [address] 05/14/2025 Shayla Cruz Plan Of Treatment Pending Test Test Name Order Date CBC AUTO DIFF 12/20/2023 CBC AUTO DIFF 01/12/2024 CBC AUTO DIFF 03/09/2024 CBC AUTO DIFF 09/18/2024 CBC AUTO DIFF 02/07/2025 CBC AUTO DIFF 05/09/2025 CRP 09/18/2024 CRP 03/09/2024 CRP 12/20/2023 FERRITIN 12/20/2023 FERRITIN 01/12/2024 FERRITIN 03/09/2024 FERRITIN 02/07/2025 FERRITIN 09/18/2024 FERRITIN 05/09/2025 FOLATE 01/12/2024 FREE T4 01/12/2024 IRON AND TIBC 03/09/2024 IRON AND TIBC 12/20/2023 IRON AND TIBC 01/12/2024 IRON AND TIBC 09/18/2024 IRON AND TIBC 05/09/2025 IRON AND TIBC 02/07/2025 PROF 14(COMP METB) 02/07/2025 PROF 14(COMP METB) 09/18/2024 PROF 14(COMP METB) 01/12/2024 PROF CHEM 8 (BAS METB) 05/09/2025 TSH 01/12/2024 TSH 09/18/2024 VITAMIN D 25 [place] 01/12/2024 VITAMIN D 25 [place] 03/09/2024 VITAMIN D 25 [place] 09/18/2024 VITAMIN D 25 [place] 02/07/2025 VITAMIN D 25 [place] 05/09/2025 Erythrocyte Sedimentation Rate Erythrocyte Sedimentation Rate Erythrocyte Sedimentation Rate Vitamin B12 01/12/2024 Vitamin B12 03/09/2024 Vitamin B12 02/07/2025 Vitamin B12 09/18/2024 Vitamin B12 05/09/2025 Next Appt Details Provider Name:Shaylathomas Cruz , 08/13/2025 08:30:00 AM, [address] [place], [address], Insurance Providers Payer Name Payer Address Payer Phone Subscriber Number Group Number Insured Name Patient Relationship to Insured Coverage Start Date Coverage End Date O [facility] [address] [place], [place] [id number] [place] Self - patient is the insured
--- OUTSIDE RECORDS SUMMARY | 2025-06-05 08:47 | XMS_ITS | Clinical Summary ---
Author Organization [facility] Address [address] [place] [address] Care Team Providers Care Steam Table Worker Name Role Phone Taya Espinosa MD Primary Care Provider [phone] Allergies Active Allergy Reactions Criticality Noted Date Comments Varenicline Other 12/09/2022 Intolerance, vivid dreams, mood swings, irritability Medications amLODIPine (Norvasc) 10 MG tablet 1 tablet 01/20/2024 Active buPROPion SR (Wellbutrin SR) 150 MG 12 hr tablet 1 tablet 01/20/2024 Active losartan (Cozaar) 50 MG tablet Take 1 tablet by mouth Daily 02/23/2024 Active Active Problems Problem Noted Date Diagnosed Date Chronic fatigue 03/03/2024 PATTIE (obstructive sleep apnea) 03/03/2024 Social History Tobacco Use Types Packs/Day Years Used Date Smoking Tobacco: Every Day Cigarettes Tobacco Cessation:Ready to Q uit: Not Asked; Counseling Given: Not Answered Alcohol Use Standard Drinks/Week Comments Yes 0 (1 standard drink = 0.6 oz pur e alcohol) 2-4 time a month Comments Unknown Sex and Gender Information Value Date Recorded Sex Assigned at Not on file Legal Sex Female 11:00 PM EDT Gender Identity Not on file Sexual Orientation Not on file Last Filed Vital Signs Vital Sign Reading Time Taken Comments Blood Pressure 128/82 03/06/2024 4:17 PM EDT Pulse 64 03/06/2024 4:17 PM EDT Temperature - - Respiratory Rate - - Oxygen Saturation 97% 03/06/2024 4:17 PM EDT Inhaled Oxygen Concentration - - Weight 59.9 kg (132 lb) 03/06/2024 4:17 PM EDT Height 154.9 cm (5' 1 ) 03/06/2024 4:17 PM EDT Body Mass Index 24.94 03/06/2024 4:17 PM EDT Plan of Treatment Not on file Insurance [employer] Care Teams Steam Table Worker Relationship Specialty Start Date End Date Taya Espinosa MD PCP - General Family Medicine 02/16/24
== END 2025-06-05 08:42 | disposition home or self-care (01) ==
LOC: MAMMO 08:41
PROVIDERS: PCP Family Medicine; Visit Provider Family Medicine
DX: Z12.31 Encounter for screening mammogram for malignant neoplasm of breast (principal)
CPT/HCPCS: 77063; 77067

== ENCOUNTER 2025-07-15 06:35 | Outpatient (OUT) | payer OTHER, SELFPAY ==
--- OUTSIDE RECORDS SUMMARY | 2024-01-17 04:15 | XMS_ITS ---
Author Organization [facility] in [place] Address [address] [place] [address] Care Team Providers Care Key Account Executive Name Role Phone Taya Espinosa Primary Care Provider Shayla Anton Unavailable [phone] REASON FOR VISIT MD New PT Hem Encounters Encounter Location Date Provider Diagnosis [facility] [address] [place] [id number] 01/17/2024 Shayla Cruz Plan Of Treatment Next Appt Details Provider Name:SHAYLA CRUZ , 08/13/2025 08:30:00 AM, [address] [place], [address], Progress Notes * Wayne WASHINGTON LDOB:[birth year] (45 yo F)Acc No.[id number]:01/17/2024 UNLOCKED PROGRESS NOTE Progress Notes Patient: Jose Wayne RAYA :?Shayla Cruz M.D.:1980???Age:43 Y ???Sex:FemaleDate:4Phone:[phone]:[address] [place] [id number]:Taya Espinosa Subjective: * Chief Complaints: * 1 . New PT Hem. * Medical History: Objective: * Vitals: Assessment: Plan: * Treatment: * * Electronic signature of Shayla Cruz MD, [id number] on 07/15/2025 at 06:41 AM ESTSign off status: PendingVisit Status:?CANC (Cancelled) * Provider: Tiffanie Cruz M.D. Date: 0 01/17/2024 Generated for Printing/Faxing/eTransmitting on:?07/15/2025 06:41 AM EST
--- OUTSIDE RECORDS SUMMARY | 2024-01-17 05:15 | XMS_ITS ---
Author Organization [facility] in [place] Address [address] [place] [address] Care Team Providers Care Glass Ribbon Machine Operator Name Role Phone Taya Espinosa Primary Care Provider Shayla Anton Unavailable [phone] REASON FOR VISIT MD Encounters Encounter Location Date Provider Diagnosis [facility] [address] [place] [phone] 01/17/2024 Shayla Cruz Plan Of Treatment Next Appt Details Provider Name:SHAYLA CRUZ , 08/13/2025 08:30:00 AM, [address] [place], [address], Progress Notes * Wayne WASHINGTON LDOB:[birth year] (45 yo F)Acc No.[id number]:01/17/2024 UNLOCKED PROGRESS NOTE Progress Notes Patient: Jose Wayne RAYA :Isacc Cruz M.D.:1980???Age:43 Y ???Sex:FemaleDate:4Phone:[phone]:[address] [place] [id number]:Taya Espinosa Subjective: * Chief Complaints: * 1 . MD. * Medical History: Objective: * Vitals: Assessment: Plan: * Treatment: * * Electronic signature of Shayla Cruz MD, [id number] on 07/15/2025 at 06:41 AM ESTSign off status: PendingVisit Status:?PEN (Pending) * Provider: Tiffanie Cruz M.D. Date: 0 01/17/2024 Generated for Printing/Faxing/eTransmitting on:?07/15/2025 06:41 AM EST
--- OUTSIDE RECORDS SUMMARY | 2024-03-13 04:00 | XMS_ITS ---
Author Organization The [facility] in [place] Address [address] [place] [address] Care Team Providers Care Photographic Lithographer Name Role Phone Taya Espinosa Primary Care Provider Shayla Anton Unavailable [phone] REASON FOR VISIT MD Encounters Encounter Location Date Provider Diagnosis The [facility] Oncology [address] [place] [address] 03/13/2024 Shayla Cruz Plan Of Treatment Next Appt Details Provider Name:SHAYLA CRUZ , 08/13/2025 08:30:00 AM, [address] [place], [address], Progress Notes * Wayne WASHINGTON LDOB:[birth year] (45 yo F)Acc No.[id number]:03/13/2024 UNLOCKED PROGRESS NOTE Progress Notes Patient: Jose Wayne RAYA :Isacc Cruz M.D.:1980???Age:43 Y ???Sex:FemaleDate:4Phone:[phone]:[address] [place] [address]Pcp:Taya Espinosa Subjective: * Chief Complaints: * 1 . MD. * Medical History: Objective: * Vitals: Assessment: Plan: * Treatment: * * Electronic signature of Shayla Cruz MD, [id number] on 07/15/2025 at 06:40 AM ESTSign off status: PendingVisit Status:?CANC (Cancelled) * Provider: Tiffanie Cruz M.D. Date: 0 03/13/2024 Generated for Printing/Faxing/eTransmitting on:?07/15/2025 06:40 AM EST
--- OUTSIDE RECORDS SUMMARY | 2024-03-13 04:45 | XMS_ITS ---
Author Organization The [facility] in [place] Address [address] [place] [address] Care Team Providers Care Manager Council Name Role Phone Taya Espinosa Primary Care Provider Shayla Anton Unavailable [phone] REASON FOR VISIT MD Encounters Encounter Location Date Provider Diagnosis The [facility] Oncology [address] [place] [address] 03/13/2024 Shayla Cruz Plan Of Treatment Next Appt Details Provider Name:SHAYLA CRUZ , 08/13/2025 08:30:00 AM, [address] [place], [address], Progress Notes * Wayne WASHINGTON LDOB:[birth year] (45 yo F)Acc No.[id number]:03/13/2024 UNLOCKED PROGRESS NOTE Progress Notes Patient: Jose Wayne RAYA :Isacc Cruz M.D.:1980???Age:43 Y ???Sex:FemaleDate:4Phone:[phone]:[address] [place] [address]Pcp:Taya Espinosa Subjective: * Chief Complaints: * 1 . MD. * Medical History: Objective: * Vitals: Assessment: Plan: * Treatment: * * Electronic signature of Shayla Cruz MD, [id number] on 07/15/2025 at 06:41 AM ESTSign off status: PendingVisit Status:?ANSPH (Voice) * Provider: Tiffanie Cruz M.D. Date: 0 03/13/2024 Generated for Printing/Faxing/eTransmitting on:?07/15/2025 06:41 AM EST
--- OUTSIDE RECORDS SUMMARY | 2024-09-18 03:00 | XMS_ITS ---
Author Organization The [facility] in [place] Address [address] [place] [address] Care Team Providers Care Furrier Apprentice Name Role Phone Taya Espinosa Primary Care Provider Shayla Anton Unavailable [phone] REASON FOR VISIT MD Encounters Encounter Location Date Provider Diagnosis The [facility] Oncology [address] [place] [address] 09/18/2024 Shayla Cruz Plan Of Treatment Next Appt Details Provider Name:SHAYLA CRUZ , 08/13/2025 08:30:00 AM, [address] [place], [address], Progress Notes * Wayne WASHINGTON LDOB:[birth year] (45 yo F)Acc No.[id number]:09/18/2024 UNLOCKED PROGRESS NOTE Progress Notes Patient: Jose Wayne RAYA :Isacc Cruz M.D.:1980???Age:44 Y ???Sex:FemaleDate:09/18/2024Phone:[phone]:[address] [place] [address]Pcp:Taya Espinosa Subjective: * Chief Complaints: * 1 . MD. * Medical History: Objective: * Vitals: Assessment: Plan: * Treatment: * * Electronic signature of Shayla Cruz MD, [id number] on 07/15/2025 at 06:41 AM ESTSign off status: PendingVisit Status:?CONFPHONE (Voice) * Provider: Tiffanie Cruz M.D. Date: 0 09/18/2024 Generated for Printing/Faxing/eTransmitting on:?07/15/2025 06:41 AM EST
--- OUTSIDE RECORDS SUMMARY | 2025-02-12 03:30 | XMS_ITS ---
Author Organization The [facility] in [place] Address [address] [place] [address] Care Team Providers Care Ultrasound Technologist Sonographer Name Role Phone Taya Espinosa Primary Care Provider Shayla Anton Unavailable [phone] REASON FOR VISIT MD Encounters Encounter Location Date Provider Diagnosis [facility] Oncology [address] [place] [phone] 02/12/2025 Shayla Cruz Plan Of Treatment Next Appt Details Provider Name:SHAYLA CRUZ , 08/13/2025 08:30:00 AM, [address] [place], [address], Progress Notes * Wayne WASHINGTON LDOB:[birth year] (45 yo F)Acc No.[id number]:02/12/2025 UNLOCKED PROGRESS NOTE Progress Notes Patient: Jose Wayne RAYA :Isacc Cruz M.D.:1980???Age:44 Y ???Sex:FemaleDate:02/12/2025Phone:[phone]:[address] [place] [phone]:Taya Espinosa Subjective: * Chief Complaints: * 1 . MD. * Medical History: Objective: * Vitals: Assessment: Plan: * Treatment: * * Electronic signature of Shayla Cruz MD, [id number] on 07/15/2025 at 06:40 AM ESTSign off status: PendingVisit Status:?CONFPHONE (Voice) * Provider: Tiffanie Cruz M.D. Date: 0 02/12/2025 Generated for Printing/Faxing/eTransmitting on:?07/15/2025 06:40 AM EST
--- OUTSIDE RECORDS SUMMARY | 2025-05-14 04:00 | XMS_ITS ---
Author Organization The [facility] in [place] Address [address] [place] [address] Care Team Providers Care Investigation Division Sergeant Name Role Phone Taya Espinosa Primary Care Provider Shayla Anton Unavailable [phone] REASON FOR VISIT MD Encounters Encounter Location Date Provider Diagnosis The [facility] Oncology [address] [place] [phone] 05/14/2025 Shayla Cruz Plan Of Treatment Next Appt Details Provider Name:SHAYLA CRUZ , 08/13/2025 08:30:00 AM, [address] [place], [address], Progress Notes * Wayne WASHINGTON LDOB:[birth year] (45 yo F)Acc No.[id number]:05/14/2025 UNLOCKED PROGRESS NOTE Progress Notes Patient: Jose Wayne RAYA :Isacc Cruz M.D.:1980???Age:44 Y ???Sex:FemaleDate:05/14/2025Phone:[phone]:[address] [place] [address]Pcp:Taya Espinosa Subjective: * Chief Complaints: * 1 . MD. * Medical History: Objective: * Vitals: Assessment: Plan: * Treatment: * * Electronic signature of Shayla Cruz MD, [id number] on 07/15/2025 at 06:40 AM ESTSign off status: PendingVisit Status:?CONFPHONE (Voice) * Provider: Tiffanie Cruz M.D. Date: 0 05/14/2025 Generated for Printing/Faxing/eTransmitting on:?07/15/2025 06:40 AM EST
--- OUTSIDE RECORDS SUMMARY | 2025-07-15 06:39 | XMS_ITS | CCD ---
Author Organization [facility] CliniSynm Care Team Providers Care Machine Repair Person Name Role Phone PHYSICIAN, DEFAULT Unavailable Unavailable [...] GONZALEZ Attending Unavailable [place] Attending Unavailable [place] Attending Unavailable Taya Pretty MD Primary Care Provider Shayla Cruz MD Attending Provider Taya Pretty MD Attending Provider Allergies Allergy ClassificationReported Allergen(s)Allergy TypeDate of OnsetReaction(s) Facility (2 sources)No Known Allergies; Translations: [No Known Allergies]Propensity to adverse reactions (disorder)75-10-7919[facility] Repository (1 source)patient allergy list reviewed by nurse or physiciaPropensity to adverse kseiiqppd96-11-9632Dgnledi:DoneNort[employer] Other (1 source)Allergies ReconciledPropensity to adverse reactionsUnknoInnovation Fuels Other (1 source)varenicline; Translations: [VARENICLINE]Drug Cnmockb56-48-7302 [facility] Repository Medications Current Medications MedicationDrug Class(es)DatesSig (Normalized)Sig (Original)amLODIPine 10 mg oral tablet (6 sources)Dihydropyridine Calcium Channel BlockerStart: 18-28-9071tqlt 1 tablet by mouth once dailyAmlodipine 10 mg tablet Active 1 TAB PO Daily January 20, 2024 12:00am FreeTextSi tablet Orally Once a day; Note: Source Status: Taking; Provider: Sukhwinder Bain ( ) Complies with drugtherapytake 1 tablet by mouth every twenty-four hoursamLODIPine Besylate 10 MG 1 tablet Orally Once a day Bsbdwz54 hr buPROPion hydrochloride 150 mg extended release oral tablet (8 sources)AminoketoneStart: 01-20-2024 End: 25-63-4126uvlx 1 tablet by mouth once dailyBupropion Hcl (Wellbutrin Sr) 150 mg tablet sustained-release 12 hr Active 150 MG PO Daily April 01, 2025 3:24pm Complies with drug therapytake 1 tablet by mouth every twenty-four hours Wellbutrin SR 150 MG 1 tablet in the morning Orally Once a day Activelosartan potassium 50 mg oral tablet (1 source)Angiotensin 2 Receptor BlockerStart: 28-74-6895pekh 1 tablet by mouth once dailyLosartan 50 mg tablet Active 50 MG PO Daily January 24, 2024 12:00am Complies with drug therapy Completed/Discontinued Medications MedicationDrug Class(es)DatesSig (Normalized)Sig (Original)amoxicillin 875 mg / clavulanate 125 mg oral tablet (1 source)Penicillin-class AntibacterialStart: 08-30-2024 End: 58-68-5031wclg 1 tablet by mouth twice dailyAmoxicillin-Pot Clavulanate 875-125 mg tablet Discontinued 1 TAB PO Twice daily August 30, 2024 1:00am May 24, 2025 10:04amhydroCHLOROthiazide 12.5 mg / losartan potassium 50 mg oral tablet (6 sources)Thiazide Diuretic, Angiotensin 2 Receptor BlockerStart: 01-20-2024 End: 79-34-8291axzb 1 tablet by mouth once dailyLosartan-Hydrochlorothiazide 50- 12.5 mg tablet Discontinued 1 TAB PO Daily January 20, 2024 12:00am January 24, 2024 3:26pm FreeTextSi tablet Orally Once a day; Note: Source Status: Taking; Provider:Sukhwinder Bain ( )take 1 tablet by mouth every twenty-four hoursLosartan Potassium-HCTZ 50-12.5 MG 1 tablet Orally Once a day Active Problems Active Problems Problem ClassificationProblemDateDocumented DateEpisodic/ChronicAnxiety disorders (3 sources)Generalized anxiety disorder; Translations: [Generalized anxiety disorder]56-33-7198ApwqdzrQavvvctqaw and other anemia (4 sources)Iron deficiency anemia; Translations: [Iron deficiency anemia, unspecified]45-63-4854AxdoykgvNxerrmrjto and other anemia (1 source)Iron deficiency anemia, unspecifiedEpisodicDiseases of white blood cells (7 sources)Leukocytosis; Translations: [Elevated white blood cell count, unspecified]Onset: 77-45-5915GjiahhpMjnaudsma hypertension (14 sources)Essential (primary) hypertension; Translations: [Benign essential hypertension]Onset: 42-40-8981RnaydbqNfhkihuc; including migraine (1 source)Headache; including migraine; Translations: [Headache, unspecified] Onset: 92-43-7531Obopbdgpwhes with complications and secondary hypertension (2 sources)Renovascular hypertension; Translations: [Renovascular hypertension] Onset: 10-24-2405CnmmdtdNzwqrkw and fatigue (6 sources)Other fatigue; Translations: [Fatigue]Onset: 87-37-9083UuxttaqkXczje circulatory disease (7 sources)Arterial fibromuscular dysplasia; Translations: [ARTERIAL FIBROMUSCULAR DYSPLASIA]Onset: 24-33-5954KvtvgkoIusfz circulatory disease (1 source)Elevated blood-pressure reading, without diagnosis of hypertension; Translations: [Elevated blood-pressure reading, without diagnosis of hypertension]Onset: 84-86-5644KxqfclphSjawp ear and sense organ disorders (1 source)Infective otitis externa; Translations: [Unspecified infective otitis externa]Onset: 71-85-2345LfwambjQpkhc screening for suspected conditions (not mental disorders or infectious disease) (2 sources)Patient encounter status; Translations: [Encounter for screening mammogram for malignant neoplasm of breast]18-62-3501OrmtuywmNwsns skin disorders (1 source)Disorder of skin and/or subcutaneous tissue; Translations: [Disorder of the skin and subcutaneous tissue, unspecified]EpisodicOther upper respiratory disease (1 source)Seasonal allergic rhinitis; Translations: [Other seasonal allergic rhinitis]ChronicOther upper respiratory infections (1 source)Chronic sinusitis; Translations: [Chronic sinusitis, unspecified] ChronicOther upper respiratory infections (3 sources)Acute pharyngitis; Translations: [Acute pharyngitis, unspecified] Onset: 592824-00-6426YqgmkdntFseaqcwo codes; unclassified (1 source)Obstructive sleep apnea syndrome; Translations: [Obstructive sleep apnea (adult) (pediatric)]61-57-9865EhoqmxmJtwjxini codes; unclassified (1 source)Tobacco user; Translations: [Nondependent tobacco use disorder] EpisodicResidual codes; unclassified (1 source)Family history of diabetes mellitus; Translations: [Family history of diabetes mellitus]EpisodicSubstance-related disorders (1 source)Nicotine dependence, unspecified, uncomplicated; Translations: [NICOTINE DEPENDENCE, UNSPECIFIED, UNCOMPLICATED]Onset: 39-75-7215Phbmhpu Unclassified (2 sources)Unknown / UNK(Unknown)Onset: 05-25-2017 Past or Other Problems Problem ClassificationProblemDateDocumented DateEpisodic/ChronicOther lower respiratory disease (2 sources)Other forms of dyspnea; Translations: [Other forms of dyspnea]Onset: 85-60-5931NnxnfxptHqmcy non-traumatic joint disorders (1 source)Hand joint pain; Translations: [Pain in joint, hand]Onset: 12-16-2014 Episodic Results Test NameValueInterpretationReference RangeFacilityBasophils Auto (Bld) [#/Vol] Ordered By: Shayla Cruz on 45-93-0967Xupzggqxh (Bld) [#/Vol]0.1 10 3/uL 0.0-0.1FRiverside Methodist HospitalBasophils/100 WBC Auto (Bld)Ordered By: Shayla Cruz on 84-53-4566Qprxdbfpx/100 WBC (Bld)0.8 %0.2-2.0[facility] HospitalEosinophils/100 WBC Auto (Bld)Ordered By: Shayla Cruz on 09-03-7533Hdhefpdtfqz/100 WBC (Bld)2.2 %0.9-7.0F[facility] HospitalErythrocyte distribution width Auto (RBC) [Ratio]Ordered By: Shayla Cruz on 90-14-9461Hdrnqnzsdww distribution width (RBC) [Ratio]13.1 %11.0-15.0 [facility] HospitalGlomerular filtration rate (GFR) estimation in non- AmericanOrdered By: Shayla Cruz on 41-25-7262XCF/1.73 sq M.predicted among non-blacks MDRD (S/P/Bld) [Vol rate/Area]mL/min/{1.73_m2}>=60 mL/min/1.73m 2FRiverside Methodist HospitalHematocrit Auto (Bld) [Volume fraction]Ordered By: Shayla Cruz on 53-09-8605Ofdfjcuvnw (Bld) [Volume fraction]46.8 %36.0-48.0F[facility] HospitalHemoglobin [Mass/volume] in BloodOrdered By: Shayla Cruz on 77-82-2774Zsuqymazpa (Bld) [Mass/Vol]15.9 g/dL12.0-16.0F[facility] HospitalIron binding capacity [Mass/volume] in Serum or PlasmaOrdered By: Shayla Cruz on 58-48-9275Nxjf binding capacity [Mass/Vol]403.0 ug/dL250.0-450.0Flower HospitalIron saturation [Mass Fraction] in Serum or PlasmaOrdered By: Shayla Cruz on 61-71-8970Uumn saturation [Mass fraction]26.3 %[facility] HospitalLaboratory - Chemistry and Chemistry - challengeOrdered By: Shayla Cruz on 16-07-5177Vgoyoyc [Mass/Vol]8.8 mg/dL8.5-10.1FRiverside Methodist HospitalChloride [Moles/Vol]103 mmol/P15-073CzspiudorFlower HospitalCO2 [Moles/Vol]24.7 mmol/L21.0-32.0F[facility] HospitalCobalamin (Vitamin B12) [Mass/Vol]672 pg/rJ627-3151IdozxykpsFlower HospitalComment on above:Performed at: - [facility] [address] [id number] Director: Royal Naylor PhD, Phone: [phone] Creatinine [Mass/Vol]0.67 mg/dL0.55-1.02[facility] Ferritin [Mass/Vol]24.0 ng/mL8.0-252.0Flower HospitalGFR/1.73 sq M.predicted MDRD (S/P/Bld) [Vol rate/Area]mL/min/{1.73_m2}>=60 mL/min/1.73m 2 [facility] HospitalGlucose [Mass/Vol]98 mg/qQ37-450YynzuhmpaFlower HospitalIron [Mass/Vol]106.0 ug/dL50.0-170.0[facility] HospitalPotassium [Moles/Vol]4.1 mmol/L3.5-5.1FCrystal Clinic Orthopedic Centerodium [Moles/Vol]139 mmol/A903-356CllyhuhitFlower HospitalUrea nitrogen [Mass/Vol]10.0 mg/dL7.0-18.0Flower HospitalUrea nitrogen/Creatinine [Mass ratio]14.9 mg/mgFlower Hospital Laboratory - Hematology and Cell countsOrdered By: Shayla Cruz on 05-09-2025 Immature granulocytes/100 WBC (Bld)0.2 %0.0-0.5FRiverside Methodist Hospital Leukocytes [#/volume] corrected for nucleated erythrocytes in Blood by Automated counOrdered By: Shayla Cruz on 61-31-9758ANY corrected for nucl RBC Auto (Bld) [#/Vol]8.3 10 3/uL4.0-11.0F[facility] HospitalLymphocytes Auto (Bld) [#/Vol]Ordered By: Shayla Cruz on 40-64-6687Ttnufanepvp (Bld) [#/Vol]2.5 10 3/uL1.2-3.8Flower HospitalLymphocytes/100 WBC Auto (Bld)Ordered By: Shayla Cruz on 96-26-9609Azxeifycvoq/100 WBC (Bld)30.4 %20.5-60.0[facility] HospitalH Auto (RBC) [Entitic mass]Ordered By: Shayla Schmitzla on 99-74-2277BTL (RBC) [Entitic mass]29.3 pg26.7-34.0 [facility] HospitalMCHC Auto (RBC) [Mass/Vol]Ordered By: Shaylathomas Cruz on 58-48-5782CEKX (RBC) [Mass/Vol]34.0 g/dL29.9-35.2FRiverside Methodist HospitalMCV Auto (RBC) [Entitic vol]Ordered By: Shaylaterence Cruz on 83-84-6925BHR (RBC) [Entitic vol]86.3 fL81.0-99.0Flower HospitalMonocytes Auto (Bld) [#/Vol]Ordered By: Shayla Cruz on 05-09-2025 Monocytes (Bld) [#/Vol]0.6 10 3/uL0.3-0.8[facility] Monocytes/100 WBC Auto (Bld)Ordered By: Shayla Anthony on 05-09-2025 Monocytes/100 WBC (Bld)7.5 %1.7-12.0F[facility] HospitalNeutrophils Auto (Bld) [#/Vol]Ordered By: Shayla Anthony on 08-76-7869Rzdfrhlrozi (Bld) [#/Vol]4.9 10 3/uL1.4-6.5FRiverside Methodist HospitalNeutrophils/100 WBC Auto (Bld)Ordered By: Shayla Anthony on 86-44-0840Gioagyownwz/100 WBC (Bld)58.9 %43.0-75.0Flower HospitalNo Panel InformationOrdered By: Shayla Cruz on 280712-Rwhkmay Vitamin D Total21.5 ng/mLFlower HospitalComment on above:<20 ng/mL Vit D xsrefzcfq46-<30 ng/mL Vit D hdkamfgsdnes51-990 ng/mL Vit D sufficient>100 ng/mL Potential Toxicity Eosinophils # (Auto)0.2 10 3/uL0.0-0.7FRiverside Methodist HospitalImmature Granulocyte # (Auto)0.02 10 3/uL0.00-0.03[facility] Platelet mean volume Auto (Bld) [Entitic vol]Ordered By: Shayla Cruz on 18-24-3512Eivyuxwk mean volume (Bld) [Entitic vol]9.0 fLLow9.5-13.5FRiverside Methodist HospitalPlatelets Auto (Bld) [#/Vol]Ordered By: Shaylaterence Cruz on 35-76-3137Cnlxtdvex (Bld) [#/Vol]367 10 3/xL504-445WaniepnsgFlower HospitalRBC Auto (Bld) [#/Vol]Ordered By: Shayla Cruz on 38-54-2973PEH (Bld) [#/Vol]5.42 10 6/uLHigh4.20-5.40[facility]stown Hospitalerum or plasma anion gap determinationOrdered By: Shayla Cruz on 22-02-9727Pqceo gap [Moles/Vol]15.4 mmol/LFRiverside Methodist HospitalOffice Visiton 10-10-2024 Follow-up [id number] Wayne [place] 1980 F Date Provider Department Center 10/10/2024 Cristela-DIANNA JACKSON CARD [facility] Family History Problem Relation Age of Onset Heart attack Mother Diabetes Mother Heart attack Father Family Status - Relation Status Age at Mother Father Level of Service:[address] [place] OFFICE/OUTPATIENT ESTABLISHED MOD MDM 30 [facility] OhioCBC AND AUTO DIFFon 46-85-2464QQHDEIIM BASOPHIL0.0 X10E9/LNormal0.0-0.2[facility] Los AngelesComment on above: Performed By: #### CBCA, CMP, 76817-6, 53910-1 #### [facility] ([id number]) [address] [place] [address], [place], [place] [address]JNNSJARL HOAIJZOKXG67.6 X10E9/LHigh1.5-6.6Pro[facility] Hospital Los AngelesComment on above:Performed By: #### CBCTiffanie, CMP, , 58302-6 #### [facility] ([id number]) [address] [place] [address] 70671Hquwglcri/100 WBC (Bld)0.3 %NormalWooster Community Hospital Comment on above:Performed By: #### CYNDEE [facility], , 64346-0 #### [facility] ([id number]) [address] [place] [address] 56486Zbbtxyhtjjq (Bld) [#/Vol]0.2 10*3/uLNormal0.0-0.4Wooster Community HospitalComment on above:Performed By: #### CYNDEE, CMP, , 46781-0 #### [facility] ([id number]) [address] [place] [address] 69691Cmpzcukgwoa/100 WBC (Bld)1.2 %NormalWooster Community Hospital Comment on above:Performed By: #### CARLOS A COTTER, , 49447-3 #### [facility] ([id number]) [address] [place] [address] 34379Bganpsytwok distribution width (RBC) [Ratio]13.4 %Normal 11.5-15.0W[facility]oster Community HospitalComment on above:Performed By: #### CBCTiffanie, CMP, , 75824-6 #### [facility] ([id number]) [address] [place] [address] 12623Nktcpkjnld (Bld) [Volume fraction]48.0 %Eaae73-60GhuPbipbaHca Houston Healthcare North CypressComment on above:Performed By: #### CBCTiffanie, CMP, , 27785-8 #### [facility] ([id number]) [address] [place] [address] 52677Xgllpquixs (Bld) [Mass/Vol]16.4 g/iFFhht03.7-15.5PGenesis HospitalComment on above:Performed By: #### CYNDEE, CMP, , 25922-3 #### [facility] ([id number]) [address] [place] [address] 88377Lfjsosmycog (Bld) [#/Vol]2.4 10*3/uLNormal1.0-3.5PGenesis HospitalComment on above:Performed By: #### CYNDEE, CMP, , 02678-7 #### [facility] ([id number]) [address] [place] [address] 72801Gggzeofbvup/100 WBC (Bld)17.2 %NormalWooster Community Hospital Comment on above:Performed By: #### CYNDEE, CMP, , 75989-6 #### [facility] ([id number]) [address] [place] [address] 83469MTZ (RBC) [Entitic mass]30.0 aeGqewsm50-15QklZkkampHca Houston Healthcare North CypressComment on above:Performed By: #### CYNDEE, CMP, , 28674-4 #### [facility] ([id number]) [address] [place] [address] 58424CHQT (RBC) [Mass/Vol]34.1 g/qAUfdlaa41-71ZnlOxiemtHca Houston Healthcare North CypressComment on above:Performed By: #### CBCTiffanie, CMP, , 90873-3 #### [facility] ([id number]) [address] [place] [address] 63441MPU (RBC) [Entitic vol]88 zROmzcpo35-304JfyUywscr [facility]remont HospitalComment on above:Performed By: #### CBCTiffanie, CMP, , 70057-4 #### [facility] ([id number]) [address] [place] [address] 84535Bskcbvfhy (Bld) [#/Vol]1.0 10*3/uLHigh0-0.9W[facility]oster Community HospitalComment on above:Performed By: #### CBCA, CMP, 08164-3, 43513-7 #### [facility] ([id number]) [address] [place] [address] 02484Almonzqao/100 WBC (Bld)6.9 %NormalWooster Community Hospital Comment on above:Performed By: #### CBCA, CMP, , 81140-9 #### [facility] ([id number]) [address] [place] [address] 66124Fydexivukgx/100 WBC (Bld)74.4 %NormalWooster Community Hospital Comment on above:Performed By: #### CBCA, CMP, , 05845-4 #### [facility] ([id number]) [address] [place] [address] 60624Tbaftusi mean volume (Bld) [Entitic vol]7.5 fLNormal7-12 [facility] HospitalComment on above:Performed By: #### CBCA, CMP, , 13637-6 #### [facility] ([id number]) [address] [place] [address] 73586Omdscysgv (Bld) [#/Vol]324 10*3/dIOsyvdz419-843KkdRjcbruWooster Community HospitalComment on above:Performed By: #### CBCA, CMP, , 85716-7 #### [facility] ([id number]) [address] [place] [address] 32453ELS COUNT5.46 X10E12/LHigh3.80-5.20[facility] Comment on above:Performed By: #### CBCA, CMP, , 71768-6 #### [facility] ([id number]) [address] [place] [address] 91654EAQ (Bld) [#/Vol]14.3 10*3/uLHigh4.0-11.0W[facility] Community HospitalComment on above:Performed By: #### CARLOS A COTTER, , 73798-7 #### [facility] ([id number]) [address] [place] [address] 44024MCZCRZBNPKIDX METABOLIC PANELon 08-26-0999Lquivmx [Mass/Vol]4.1 g/dLNormal3.2-5.3PGenesis HospitalComment on above:Performed By: #### CARLOS A COTTER, , 24129-4 #### [facility] ([id number]) [address] [place] [address] [place] [address]JGX [Catalytic activity/Vol]65 U/JDihdmx10-237UhjKxpbzxHca Houston Healthcare North CypressComment on above:Performed By: #### CRALOS A COTTER, , 54666-0 #### [facility] ([id number]) [address] [place] [address] 68116YDP [Catalytic activity/Vol]24 U/LNormal0-31PGenesis HospitalComment on above:Performed By: #### CARLOS A COTTER, , 76087-0 #### [facility] ([id number]) [address] [place] [address], [place] [address]Bdqdd gap [Moles/Vol]9 mmol/LNormal5-15ProHca Houston Healthcare North CypressComment on above:Performed By: #### CARLOS A COTTER, , 56624-5 #### [facility] ([id number]) [address] [place] [address] [place] [address]VKW [Catalytic activity/Vol]17 U/LNormal0-41ProHca Houston Healthcare North CypressComment on above:Performed By: #### CARLOS A COTTER, , 78250-7 #### [facility] ([id number]) [address] [place] [address] 49018Oyhaxpikx [Mass/Vol]0.7 mg/dLNormal0.3-1.2PGenesis HospitalComment on above:Performed By: #### CARLOS A COTTER, , 36850-0 #### [facility] ([id number]) [address] [place] [address] 24647Odxgrhj [Mass/Vol]8.9 mg/dLNormal8.5-10.5PGenesis HospitalComment on above:Performed By: #### CARLOS A COTTER, , 20142-6 #### [facility] ([id number]) [address] [place] [address], [place] [address]Wpjwneui [Moles/Vol]104 mmol/OTnfqxo02-200VopUguwdbHca Houston Healthcare North CypressComment on above:Performed By: #### CARLOS A COTTER, , 13003-3 #### [facility] ([id number]) [address] [place] [address] 90252JS6 [Moles/Vol]22 mmol/FAdreur76-63QzxQrcqbhGenesis Hospital Comment on above:Performed By: #### CARLOS A COTTER, , 47894-0 #### [facility] ([id number]) [address] [place] [address] 84308Kqrqencyxf [Mass/Vol]0.75 mg/dLNormal0.40-1.00ProHca Houston Healthcare North CypressComment on above:Result Comment: METHOD TRACEABLE TO IDMS STANDARD Performed By: #### CARLOS A COTTER, , 38271-2 #### [facility] ([id number]) [address] [place] [address] 36291dSTX (CKD-EPI) NON-RACE DEPENDENT>90Normal>59ProHca Houston Healthcare North CypressComment on above:Result Comment: Reported eGFR is based on the CKD-EPI 1 equation that does not use a race coefficient.Performed By: #### CARLOS A COTTER, 23094-8, 84504-9 #### [facility] ([id number]) [address] [place] [address] 21630Edmpivx [Mass/Vol]105 mg/hXZjts63-80VpjBtrlziWooster Community Hospital Comment on above:Performed By: #### CARLOS A COTTER, , 17757-8 #### [facility] ([id number]) [address] [place] [address] 02288Womtrwyvr [Moles/Vol]3.6 mmol/LNormal3.5-5.0ProHca [facility] Healthcare North CypressComment on above:Performed By: #### CARLOS A COTTER, , 36998-0 #### [facility] ([id number]) [address] [place] [address], [place] [address]Qkregib [Mass/Vol]7.5 g/dLNormal6.0-8.0ProHca [facility] Healthcare North CypressComment on above:Performed By: #### CARLOS A COTTER, 89417-5, 99740-4 #### [facility] ([id number]) [address] [place] [address] 99416Wabijc [Moles/Vol]135 mmol/PYwvnaq695-971NmyArfjtf [facility] HospitalComment on above:Performed By: #### CARLOS A COTTER, 46722-9, 57012-4 #### [facility] ([id number]) [address] [place] [address] 67239Autz nitrogen [Mass/Vol]12 mg/dLNormal5-23ProHca [facility] Healthcare North CypressComment on above:Performed By: #### CARLOS A COTTER, 67136-9, 75228-1 #### [facility] ([id number]) [address] [place] [address] 06158WF BRAIN WO CONTon 89-98-8406UA BRAIN WO CONTCT BRAIN WO CONT STUDY: CT BRAIN WO [...] Finalized by Darron Hercules on 08/25/2024 9:26 PMNormalProHca Houston Healthcare North CypressMAGNESIUMon 22-40-5181Vipcfjzqg [Mass/Vol]2.0 mg/dLNormal1.8-2.6 [facility] Hospital Los AngelesComment on above:Performed By: #### CYNDEE [facility], [address]- 9, 25934-4 #### [facility] ([id number]) [address] [place] [address] 09798Hjdfptze I.cardiac High sensitivity method [Mass/Vol]on HOUR TROP I, HIGH SENSITIVITY3 ng/LNormal<16ProBarney Children'S Medical Centerca Children'S Hospital Los AngelesComment on above:Performed By: #### 73724-1 #### [facility] ([id number]) [address] [place] [address] 21046PJTZPWXG I, HIGH SENSITIVITY3 ng/LNormal<16[facility] Los AngelesComment on above:Performed By: #### CBCA, CMP, 33370-3, 50988-9 #### [facility] ([id number]) [address] [facility], [place], [place] [address]Qahktgdeq Auto (Bld) [#/Vol]on 42-35-9551Sayvvinnr (Bld) [#/Vol]0.1 10 3/uL0.0-0.1FRiverside Methodist HospitalBasophils/100 WBC Auto (Bld)on 74-83-1293Ntpjgfiuq/100 WBC (Bld)0.7 %0.2-2.0[facility] HospitalEosinophils/100 WBC Auto (Bld)on 56-83-8887Zdulxfdxsza/100 WBC (Bld)3.6 % 0.9-7.0Flower HospitalErythrocyte distribution width Auto (RBC) [Ratio]on 62-43-5450Rqyugcgqtff distribution width (RBC) [Ratio]18.3 % 11.0-15.0[facility] HospitalEstimated glomerular filtration rate (GFR) non- Americanon 02-51-0211RTT/1.73 sq M.predicted among non-blacks MDRD (S/P/Bld) [Vol rate/Area]mL/min/{1.73_m2}>=60Flower HospitalGlobulin Calc (S) [Mass/Vol]on 12-54-0733Adyvqwtd (S) [Mass/Vol]4.3 g/dL F[facility] HospitalHematocrit Auto (Bld) [Volume fraction]on 61-38-4904Bacaibwzqd (Bld) [Volume fraction]43.0 %36.0-48.0F[facility] HospitalHemoglobin [Mass/volume] in Bloodon 46-42-6936Vjbdqnnpgj (Bld) [Mass/Vol]14.1 g/dL12.0-16.0[facility] HospitalIron binding capacity [Mass/volume] in Serum or Plasmaon 50-17-5540Sxpb binding capacity [Mass/Vol]337.0 ug/dL250.0-450.0[facility] HospitalIron saturation [Mass Fraction] in Serum or Plasmaon 18-85-5803Vydj saturation [Mass fraction] 25.5 %[facility] HospitalLaboratory - Chemistry and Chemistry - challengeon 55-69-8172Pgpuwjg [Mass/Vol]3.9 g/dL3.4-5.0[facility] HospitalALP [Catalytic activity/Vol]102 U/X24-564RquikdauiFlower HospitalALT [Catalytic activity/Vol]20 U/K35-26SpmsiltkzFlower HospitalAST [Catalytic activity/Vol]10 U/G34-96AhjxnaunfFlower Hospital Bilirubin [Mass/Vol]0.1 mg/dL0.2-1.0[facility] HospitalCalcium [Mass/Vol]8.9 mg/dL8.5-10.1FRiverside Methodist HospitalChloride [Moles/Vol] 103 mmol/R08-740AouaizqnqFlower HospitalCO2 [Moles/Vol]27.2 mmol/L 21.0-32.0[facility] HospitalCobalamin (Vitamin B12) [Mass/Vol] 384.0 pg/mL193.0-986.0[facility] HospitalCreatinine [Mass/Vol]0.62 mg/dL0.55-1.02[facility] HospitalFerritin [Mass/Vol]819.0 ng/mL 8.0-252.0[facility] HospitalFree T4 [Mass/Vol]0.78 ng/dL0.76-1.46 [facility] HospitalGFR/1.73 sq M.predicted MDRD (S/P/Bld) [Vol rate/Area]mL/min/{1.73_m2}>=60F[facility] HospitalGlucose [Mass/Vol]82 mg/iF68-242QuodkmkqzFlower HospitalIron [Mass/Vol]86.0 ug/dL50.0-170.0[facility] HospitalPotassium [Moles/Vol]4.0 mmol/L 3.5-5.1FRiverside Methodist HospitalProtein [Mass/Vol]8.2 g/dL6.4-8.[address] [facility] Hospitalodium [Moles/Vol]138 mmol/A696-922RynzsrcnsFlower HospitalTSH Qn1.982 m[IU]/L0.358-3.740F[facility] HospitalUrea nitrogen [Mass/Vol]8.0 mg/dL7.0-18.0[facility] Urea nitrogen/Creatinine [Mass ratio]12.9 mg/mgFlower Hospital Laboratory - Hematology and Cell countson 91-58-4911Jggxobci granulocytes/100 WBC (Bld)0.2 %0.0-0.5FRiverside Methodist HospitalLeukocytes [#/volume] corrected for nucleated erythrocytes in Blood by Automated counon 36-17-5764ZBM corrected for nucl RBC Auto (Bld) [#/Vol]9.7 10 3/uL4.0-11.0[facility] HospitalLymphocytes Auto (Bld) [#/Vol]on 63-59-4794Smdqcvpqbya (Bld) [#/Vol]2.7 10 3/uL1.2-3.8[facility] HospitalLymphocytes/100 WBC Auto (Bld)on 71-79-0933Jtyxlthcwrg/100 WBC (Bld)27.3 %20.5-60.0[facility] HospitalH Auto (RBC) [Entitic mass]on 43-86-2967UFH (RBC) [Entitic mass]27.4 pg26.7-34.0[facility] HospitalMCHC Auto (RBC) [Mass/Vol]on 99-07-8030TLKZ (RBC) [Mass/Vol]32.8 g/dL29.9-35.2FRiverside Methodist HospitalMCV Auto (RBC) [Entitic vol]on 01-94-7145RVL (RBC) [Entitic vol] 83.7 fL81.0-99.0[facility] HospitalMonocytes Auto (Bld) [#/Vol]on 57-74-2339Ipufndqfk (Bld) [#/Vol]0.8 10 3/uL0.3-0.8[facility] HospitalMonocytes/100 WBC Auto (Bld)on 78-41-7769Jksbvyqou/100 WBC (Bld)8.2 % 1.7-12.0[facility] HospitalNeutrophils Auto (Bld) [#/Vol]on 14-43-6191Pysohtkzryo (Bld) [#/Vol]5.8 10 3/uL1.4-6.5FRiverside Methodist HospitalNeutrophils/100 WBC Auto (Bld)on 64-05-5134Msdipovksud/100 WBC (Bld)60.0 % 43.0-75.0[facility] HospitalNo Panel Informationon - Hydroxy Vitamin D Total8.7 ng/mLFlower HospitalComment on above:<20 ng/mL Vit D anzrpshis96-<30 ng/mL Vit D -015 ng/mL Vit D sufficient>100 ng/mL Potential ToxicityEosinophils # (Auto)0.4 10 3/uL0.0-0.7 [facility] HospitalFolate9.70 ng/mL8.60-58.90F[facility] HospitalImmature Granulocyte # (Auto)0.02 10 3/uL0.00-0.03[facility] HospitalPlatelet mean volume Auto (Bld) [Entitic vol]on 41-29-8766Bjvcektv mean volume (Bld) [Entitic vol]8.5 fL9.5-13.5FRiverside Methodist HospitalPlatelets Auto (Bld) [#/Vol]on 76-72-4308Aymyouosd (Bld) [#/Vol]383 10 3/oY338-648BgtibqiraFlower HospitalRBC Auto (Bld) [#/Vol] on 15-54-8088QXH (Bld) [#/Vol]5.14 10 6/uL4.20-5.40[facility] Hospitalerum or plasma albumin/globulin mass ratioon 07-52-3890Lfjvhxd/Globulin [Mass ratio]0.9 {ratio}[facility] Hospitalerum or plasma anion gap determinationon 27-12-9289Ruhpu gap [Moles/Vol]11.8 mmol/LFRiverside Methodist HospitalBasophils Auto (Bld) [#/Vol]on 19-48-2700Tjiimdwvl (Bld) [#/Vol] 0.1 10 3/uL0.0-0.1FRiverside Methodist HospitalBasophils/100 WBC Auto (Bld) on 72-86-2147Uhiqpxrwe/100 WBC (Bld)0.6 %0.2-2.0[facility] HospitalEosinophils/100 WBC Auto (Bld)on 38-73-4895Tpvnqfwxqdn/100 WBC (Bld)2.5 % 0.9-7.0[facility] HospitalErythrocyte distribution width Auto (RBC) [Ratio]on 88-31-7749Sseovlpdkcl distribution width (RBC) [Ratio]14.9 % 11.0-15.0[facility] HospitalHematocrit Auto (Bld) [Volume fraction]on 10-97-2091Aoxvbifopy (Bld) [Volume fraction]44.7 %36.0-48.0[facility] HospitalHemoglobin [Mass/volume] in Bloodon 23-80-8351Fubofbbdze (Bld) [Mass/Vol]14.0 g/dL12.0-16.0[facility] HospitalIron binding capacity [Mass/volume] in Serum or Plasmaon 44-72-4736Wsxd binding capacity [Mass/Vol]490.0 ug/dL250.0-450.0[facility] HospitalIron saturation [Mass Fraction] in Serum or Plasmaon 31-53-3791Twdp saturation [Mass fraction] 5.9 %[facility] HospitalLaboratory - Chemistry and Chemistry - challengeon 54-44-3613Iezwhuqw [Mass/Vol]8.0 ng/mL8.0-252.0[facility] HospitalIron [Mass/Vol]29.0 ug/dL50.0-170.0[facility] HospitalLaboratory - Hematology and Cell countson 77-29-5973PKM (Bld) [Velocity]55 mm/h<=20F[facility] HospitalImmature granulocytes/100 WBC (Bld)0.3 %0.0-0.5FRiverside Methodist HospitalLeukocytes [#/volume] corrected for nucleated erythrocytes in Blood by Automated counon 58-99-6252DRZ corrected for nucl RBC Auto (Bld) [#/Vol]13.4 10 3/uL4.0-11.0[facility] Lymphocytes Auto (Bld) [#/Vol]on 24-27-1606Tgdkunidewp (Bld) [#/Vol]2.6 10 3/uL 1.2-3.8[facility] HospitalLymphocytes/100 WBC Auto (Bld)on 12-49-8551Ipechkncobv/100 WBC (Bld)19.3 %20.5-60.0[facility] HospitalH Auto (RBC) [Entitic mass]on 93-58-2910PJQ (RBC) [Entitic mass]26.1 pg 26.7-34.0[facility] HospitalMCHC Auto (RBC) [Mass/Vol]on 57-32-6315TUVD (RBC) [Mass/Vol]31.3 g/dL29.9-35.2FRiverside Methodist HospitalMCV Auto (RBC) [Entitic vol]on 52-86-5472GJI (RBC) [Entitic vol]83.2 fL 81.0-99.0[facility] HospitalMonocytes Auto (Bld) [#/Vol]on 76-19-1790Qlnzjpdgx (Bld) [#/Vol]0.7 10 3/uL0.3-0.8[facility] HospitalMonocytes/100 WBC Auto (Bld)on 44-26-6085Mrzqucuwu/100 WBC (Bld)5.4 % 1.7-12.0[facility] HospitalNeutrophils Auto (Bld) [#/Vol]on 90-89-8305Gmkocvmtvcd (Bld) [#/Vol]9.6 10 3/uL1.4-6.5FRiverside Methodist HospitalNeutrophils/100 WBC Auto (Bld)on 04-23-4471Pvhlmkjynqs/100 WBC (Bld)71.9 % 43.0-75.0[facility] HospitalNo Panel Informationon 42-37-9342V- Reactive Protein, Quantitative<0.50 mg/dL<=0.50[facility] Eosinophils # (Auto)0.3 10 3/uL0.0-0.7FRiverside Methodist HospitalImmature Granulocyte # (Auto)0.04 10 3/uL0.00-0.03[facility] Platelet mean volume Auto (Bld) [Entitic vol]on 30-53-8815Zntzxeqw mean volume (Bld) [Entitic vol]8.8 fL9.5-13.5FRiverside Methodist HospitalPlatelets Auto (Bld) [#/Vol]on 78-82-1225Ptxquegpq (Bld) [#/Vol]576 10 3/uF416-505RayphuklfFlower HospitalRBC Auto (Bld) [#/Vol]on 26-69-5360KVL (Bld) [#/Vol]5.37 10 6/uL4.20-5.40[facility] HospitalOffice Visiton 10-24-2023 Follow-up [id number] [place] 1980 F Date Provider Department Center 10/24/2023 Cristela-DIANNA JACKSON [facility] Hos Family History Problem Relation Age of Onset Heart attack Mother Diabetes Mother Heart attack Father Family Status - Relation Status Age at Mother Father Level of Service:67785 [place] OFFICE/OUTPATIENT ESTABLISHED MOD MDM 30 [facility] OhioCBC AUTO DIFFon 19-75-4568SUMK #0.1 103/ul Normal0.0-0.1T[facility]edo HospitalComment on above:Performed By: #### CBC #### [facility] [address] [place] [address] Dr. Quincy Connersophils/100 WBC (Bld)0.5 %Normal0.2-2.0The [facility] Comment on above:Performed By: #### CBC #### [facility] [address] [address] [address] Quincy Boone #0.4 103/ulNormal0.0-0.7The [facility] SouthComment on above: Performed By: #### CBC #### [facility] [address] [place] [address] Dr. Yilan ChangEosinophils/100 WBC (Bld)4.1 %Normal0.9-7.0The [facility] Comment on above:Performed By: #### CBC #### [facility] [address] [place] [address] Dr. Quincy Cruzrythrocyte distribution width (RBC) [Ratio]15.9 %Critically high 11.0-15.0The [facility] SouthComment on above:Performed By: #### CBC #### [facility] [address] [place] [address] Dr. Quincy AlanizHematocrit (Bld) [Volume fraction]39.2 %Itgeic93.0-48.0The [facility] SouthComment on above:Performed By: #### CBC #### [facility] [address] [place] [address] Dr. Quincy AlanizHemoglobin (Bld) [Mass/Vol]12.4 g/vAGfuscp58.0-16.0The [facility] SouthComment on above:Performed By: #### CBC #### [facility] [address] [place] [address] Dr. Quincy Flores #0.03 10e3/ulNormal0.00-0.03The [facility] SouthComment on above:Performed By: #### CBC #### [facility] [address] [place] [address] Dr. Quincy AlanizIG %0.3 %Normal0.0-0.5The [facility] SouthComment on above: Performed By: #### CBC #### [facility] [address] [place] [address] Dr. Quincy SullivanMPH #2.9 103/ulNormal1.2-3.8The [facility] SouthComment on above:Performed By: #### CBC #### [facility] [address] [place] [address] Dr. Quincy Sullivanmphocytes/100 WBC (Bld)30.3 %Zefpef59.5-60.0The [facility] SouthComment on above:Performed By: #### CBC #### [facility] [address] [address] [address] Quincy Garner DIFF REQNONormalThe [facility] SouthComment on above: Performed By: #### CBC #### [facility] [address] [place] [address] Dr. Quincy Mcmullen (RBC) [Entitic mass]25.6 pgCritically low26.7-34.0The [facility] SouthComment on above:Performed By: #### CBC #### [facility] [address] [place] [address] Dr. Quincy Mcmullen (RBC) [Mass/Vol]31.6 g/vXJrfzey72.9-35.2The [facility] SouthComment on above:Performed By: #### CBC #### [facility] [address] [place] [address] Dr. Quincy Mcmullen (RBC) [Entitic vol]80.8 fLCritically low81.0-99.0The [facility] SouthComment on above:Performed By: #### CBC #### [facility] [address] [place] [address] Dr. Quincy Johansen #0.7 103/ulNormal0.3-0.8The [facility] SouthComment on above:Performed By: #### CBC #### [facility] [address] [place] [address] Dr. Quincy Howellocytes/100 WBC (Bld)7.4 %Normal1.7-12.0The [facility] Comment on above:Performed By: #### CBC #### [facility] [address] [place] [address] Dr. Quincy Forman #5.6 103/ulNormal1.4-6.5The [facility] SouthComment on above:Performed By: #### CBC #### [facility] [address] [place] [address] Dr. Quincy Ledezmautrophils/100 WBC (Bld)57.4 %Sbtwqn49.0-75.0The [facility] SouthComment on above:Performed By: #### CBC #### [facility] [address] [address] [address] Quincy Floreslet mean volume (Bld) [Entitic vol]8.6 fLCritically low 9.5-13.5The [facility] SouthComment on above:Performed By: #### CBC #### [facility] [address] [place] [address] Dr. Quincy AlanizPLT481 103/ulCritically gjwb072-452Tsh [facility] SouthComment on above:Performed By: #### CBC #### [facility] [address] [place] [address] Dr. Quincy AlanizRBC4.85 106/ulNormal4.20-5.40The [facility] SouthComment on above:Performed By: #### CBC #### [facility] [address] [place] [address] Dr. Quincy AlanizWBC9.7 103/ulNormal4.0-11.0The [facility] SouthComment on above: Performed By: #### CBC #### [facility] [address] [place] [address] Dr. Quincy AlanizFERRITINon 90-36-2261Rygvknqb [Mass/Vol]8.0 ng/mLNormal6.2-137.0 The [facility] SouthComment on above:Performed By: #### FERR #### [facility] [address] [place] [address] Dr. Quincy Cross AUTO DIFFon 99-89-8244ZUNT #0.1 103/ulNormal0.0-0.1The [facility] SouthComment on above:Performed By: #### CBC #### [facility] [address] [place] [address] Dr. Quincy AlanizBasophils/100 WBC (Bld)0.3 %Normal0.2-2.0The [facility] Comment on above:Performed By: #### CBC #### [facility] [address] [place] [address] Dr. Mathew ChangEO #0.4 103/ulNormal0.0-0.7The [facility] SouthComment on above: Performed By: #### CBC #### [facility] [address] [place] [address] Dr. Quincy Cruzosinophils/100 WBC (Bld)1.7 %Normal0.9-7.0The [facility] Comment on above:Performed By: #### CBC #### [facility] [address] [place] [address] Dr. Quincy Cruzrythrocyte distribution width (RBC) [Ratio]15.1 %Critically high 11.0-15.0The [facility] SouthComment on above:Performed By: #### CBC #### [facility] [address] [place] [address] Dr. Quincy AlanizHematocrit (Bld) [Volume fraction]39.6 %Kvjxup08.0-48.0The [facility] SouthComment on above:Performed By: #### CBC #### [facility] [address] [place] [address] Dr. Quincy AlanizHemoglobin (Bld) [Mass/Vol]12.8 g/wQGbcnsu53.0-16.0The [facility] SouthComment on above:Performed By: #### CBC #### [facility] [address] [place] [address] Dr. Quincy Flores #0.09 10e3/ulCritically high0.00-0.03The [facility] Comment on above:Performed By: #### CBC #### [facility] [address] [place] [address] Dr. Quincy Flores %0.4 %Normal0.0-0.5The [facility] SouthComment on above: Performed By: #### CBC #### [facility] [address] [place] [address] Dr. Quincy Espinoza #2.4 103/ulNormal1.2-3.8The [facility] SouthComment on above:Performed By: #### CBC #### [facility] [address] [place] [address] Dr. Quincy Marleyhocytes/100 WBC (Bld)11.5 %Critically low20.5-60.0The [facility] SouthComment on above:Performed By: #### CBC #### [facility] [address] [place] [address] Dr. Quincy Garner DIFF REQNONormalThe [facility] SouthComment on above: Performed By: #### CBC #### [facility] [address] [place] [address] Dr. Quincy Mcmullen (RBC) [Entitic mass]25.7 pgCritically low26.7-34.0The [facility] SouthComment on above:Performed By: #### CBC #### [facility] [address] [place] [address] Dr. Quincy Mcmullen (RBC) [Mass/Vol]32.3 g/jQPuiuqg48.9-35.2The [facility] SouthComment on above:Performed By: #### CBC #### [facility] [address] [place] [address] Dr. Quincy Deutsch (RBC) [Entitic vol]79.4 fLCritically low81.0-99.0[facility] HospitalComment on above:Performed By: #### CBC #### [facility] [address] [place] [address] Dr. Quincy Johansen #1.2 103/ulCritically high0.3-0.8ThRegency Hospital Company Comment on above:Performed By: #### CBC #### [facility] [address] [place] [address] Dr. Quincy Howellocytes/100 WBC (Bld)5.4 %Normal1.7-12.0[facility] Comment on above:Performed By: #### CBC #### [facility] [address] [place] [address] Dr. Quincy Forman #17.2 103/ulCritically high1.4-6.5ThRegency Hospital Company Comment on above:Performed By: #### CBC #### [facility] [address] [place] [address] Dr. Quincy Chavesophils/100 WBC (Bld)80.7 %Critically high43.0-75.0The [facility] SouthComment on above:Performed By: #### CBC #### [facility] [address] [address] [address] Quincy Floreslet mean volume (Bld) [Entitic vol]8.6 fLCritically low 9.5-13.5The [facility] SouthComment on above:Performed By: #### CBC #### [facility] [address] [address] [address] Quincy BahenaT530 103/ulCritically mmda852-213Mcg [facility] SouthComment on above:Performed By: #### CBC #### [facility] [address] [place] [address] Dr. Quincy AlanizRBC4.99 106/ulNormal4.20-5.40The [facility] SouthComment on above:Performed By: #### CBC #### [facility] [address] [place] [address] Dr. Quincy AlanizWBC21.3 103/ulCritically high4.0-11.0The [facility] SouthComment on above:Performed By: #### CBC #### [facility] [address] [place] [address] Dr. Quincy AlanizLIPID PROFILEon 20-03-6947VMME-HDL RATIO NORMSEE [facility] Bryan HospitalComment on above:Result Comment: 3.3 - 4.4 LOW RISK 4.4 - 7.1 AVERAGE RISK 7.1 - 11.0 MODERATE RISK >11.0 HIGH RISKPerformed By: #### CMP, LIPID #### [facility] [address] [place] [address] Dr. Quincy AlanizCholesterol [Mass/Vol]180 mg/dLNormal<=200The [facility] Comment on above:Performed By: #### CMP, LIPID #### [facility] [address] [place] [address] Dr. Quincy AlanizCholesterol in HDL [Mass/Vol]29 mg/dLCritically frf65-04Tsd [facility] Jacksonment on above:Performed By: #### CMP, LIPID #### [facility] [address] [address] [address] Quincy AlanizCholesterol in LDL [Mass/Vol]132.8 mg/dLNoMansfield HospitalComment on above:Performed By: #### CMP, LIPID #### [facility] [address] [address] [address] Quincy Patten.total/Cholesterol in HDL [Mass ratio]6.2 {ratio} NormalThe [facility] SouthCombronson battle creek hospital on above:Performed By: #### CMP, LIPID #### [facility] [address] [place] [address] Dr. Quincy Bejarano NORMAL> or = 60 mg/dl - LOW CARDIOVASCULAR RISK <40 mg/dl - HIGH CARDIOVASCULAR RISKTrinity Health System on above:Performed By: #### CMP, LIPID #### [facility] [address] [place] [address] Dr. Quincy Calhoun CALC NORMALSEE BELOWNoMansfield HospitalComment on above:Result Comment: <100 mg/dl OPTIMAL 100 - 129 mg/dl NEAR OR ABOVE OPTIMAL 130 - 159 mg/dl BORDERLINE HIGH 160 - 189 mg/dl HIGH >190 mg/dl VERY HIGH Performed By: #### CMP, LIPID #### [facility] [address] [place] [address] Dr. Quincy AlanizTriglyceride [Mass/Vol]91 mg/dLNormal<=150[facility] Comment on above:Performed By: #### CMP, LIPID #### [facility] [address] [place] [address] Dr. Quincy NicoleLDL CALC18.2 mg/dLNoMansfield HospitalComment on above: Performed By: #### CMP, LIPID #### [facility] [address] [place] [address] Dr. Quincy AlanizPRONel 14(COMP METB)on 87-59-4609Uxpoupx [Mass/Vol]3.7 g/dLNormal 3.4-5.0The [facility] HospitalComment on above:Performed By: #### CMP, LIPID #### [facility] [address] [address] [address] Quincy AlanizAlbumin/Globulin [Mass ratio]0.8 {ratio}NormalThe [facility] SouthComment on above:Performed By: #### CMP, LIPID #### [facility] [address] [address] [address] Quincy CelestinP [Catalytic activity/Vol]105 U/RXnagfy45-073Scg [facility] SouthComment on above:Performed By: #### CMP, LIPID #### [facility] [address] [address] [address] Quincy Rich [Catalytic activity/Vol]24 U/BSbiuut16-87Sxo [facility] Jacksonment on above:Performed By: #### CMP, LIPID #### [facility] [address] [address] [address] Quincy Esquedaon gap [Moles/Vol]11.1 mmol/LNormalThe [facility] Comment on above:Performed By: #### CMP, LIPID #### [facility] [address] [address] [address] Quincy AlanizAST [Catalytic activity/Vol]14 U/LCritically qiy04-49Wvm [facility] SouthComment on above:Performed By: #### CMP, LIPID #### [facility] [address] [address] [address] Quincy AlanizBilirubin [Mass/Vol]0.3 mg/dLNormal0.2-1.0The [facility] Comment on above:Performed By: #### CMP, LIPID #### [facility] [address] [address] [address] Quincy AlanizCalcium [Mass/Vol]9.2 mg/dLNormal8.5-10.1The [facility] Comment on above:Performed By: #### CMP, LIPID #### [facility] [address] [address] [address] Quicny AlanizChloride [Moles/Vol]100 mmol/RSgmxke66-544Pnl [facility] Comment on above:Performed By: #### CMP, LIPID #### [facility] [address] [address] [address] Quincy AlanizCO2 [Moles/Vol]26.8 mmol/CVaghbw34.0-32.0The [facility] Comment on above:Performed By: #### CMP, LIPID #### [facility] [address] [address] [address] Quincy AlanizCreatinine [Mass/Vol]0.68 mg/dLNormal0.55-1.02The [facility] SouthComment on above:Performed By: #### CMP, LIPID #### [facility] [address] [address] [address] Quincy CruzGFR-AF ALGERIAN>60Normal>=60The [facility] SouthComment on above:Performed By: #### CMP, LIPID #### [facility] [address] [address] [address] Quincy CruzGFR-NON AF ALGERIAN>60Normal>=60The [facility] SouthComment on above:Performed By: #### CMP, LIPID #### [facility] [address] [address] [address] Quincy AlanizGlobulin (S) [Mass/Vol]4.9 g/dLNormalThe [facility] SouthComment on above:Performed By: #### CMP, LIPID #### [facility] [address] [address] [address] Quincy AlanizGlucose [Mass/Vol]113 mg/dLCritically kbqx45-016Urd [facility] SouthComment on above:Performed By: #### CMP, LIPID #### [facility] [address] [address] [address] Quincy AlanizPotassium [Moles/Vol]3.9 mmol/LNormal3.5-5.1The [facility] Comment on above:Performed By: #### CMP, LIPID #### [facility] [address] [address] [address] Quincy AlanizProtein [Mass/Vol]8.6 g/dLCritically high6.4-8.2The [facility] SouthComment on above:Performed By: #### CMP, LIPID #### [facility] [address] [place], [place] [address] Dr. Quincy AlanizSodium [Moles/Vol]134 mmol/LCritically qze546-638Wry [facility] SouthComment on above:Performed By: #### CMP, LIPID #### [facility] [address] [address] [address] Quincy AlanizUrea nitrogen [Mass/Vol]9.0 mg/dLNormal7.0-18.0The [facility] SouthComment on above:Performed By: #### CMP, LIPID #### [facility] [address] [address] [address] Quincy Ovalle nitrogen/Creatinine [Mass ratio]13.2 mg/mgNoMansfield HospitalComment on above:Performed By: #### CMP, LIPID #### [facility] [address] [address] [address] Quincy Gibbs KIDNEYSon [id number] KIDNEYSUS KIDNEYS: 12/16/2022 10:00 AM EDT CLINICAL HISTORY: 42 years [...] Electronically authenticated by: VALERIE GEORGE Date: 2022-12-16 13:08The [facility]vue HospitalBASI METABOLIC PANELon 31-61-3382Bsshhyr8.6 mg/dLNormal 8.6-10.3The [facility] Medical CenterComment on above:Order Comment: No: Do not add to previous drawPerformed By: #### [id number] ####[facility] [place] [address], LNNKamgdogk635 mmol/LNormal 98-107The [facility] Medical CenterComment on above:Order Comment: No: Do not add to previous drawPerformed By: #### [id number] ####[facility] [place] [address], [id number] mmol/RAbvycw72-59Gie [facility] Medical CenterComment on above:Order Comment: No: Do not add to previous drawPerformed By: #### [id number] ####[facility] [place] [address], USACreatinine0.69 mg/dLNormal 0.60-1.20The Wexner Medical CenterComment on above:Order Comment: No: Do not add to previous drawPerformed By: #### [id number] ####[facility] [place] [address].[place] [address], USAeGFR (black) mL/min/{1.73_m2}Normal>60The [facility] CenterComment on above:Order Comment: No: Do not add to previous drawPerformed By: #### [id number] ####[facility] [place] [address].[place] [address], [place] eGFR (non-black)mL/min/{1.73_m2}Normal>60[facility] Comment on above:Order Comment: No: Do not add to previous drawPerformed By: #### [id number] ####[facility] [place] [address].[place] [address], USAGlucose mass conc95 mg/aVBowvdn84-224Giw [facility] CenterComment on above:Order Comment: No: Do not add to previous drawPerformed By: #### [id number] ####[facility] [place] [address].[place] [address], USAPotassium molar conc4.6 mmol/LNormal3.5-5.1The [facility] Medical CenterComment on above:Order Comment: No: Do not add to previous draw Performed By: #### [id number] ####[facility] [place] [address], YTCPcettz901 mmol/LJrt607-826Pqn [facility] CenterComment on above:Order Comment: No: Do not add to previous draw Performed By: #### [id number] ####[facility] [place] [address], USAUrea ttsymyia17 mg/dLNormal7-25The [facility] CenterComment on above:Order Comment: No: Do not add to previous draw Performed By: #### [id number] ####[facility] [place] [address].[place] [address], [facility] CENTERCBC W/DIFFon 18-65-0139Fuwkziwal Auto #/vol (Bld)0.5 % Normal0.0-2.0The [facility] CenterComment on above:Order Comment: No: Do not add to previous drawPerformed By: #### [id number] ####[facility] [place] [address], [facility] CENTEREosinophils/100 leukocytes2.4 %Normal0.0-5.0The [facility] Medical CenterComment on above:Order Comment: No: Do not add to previous drawPerformed By: #### [id number] ####[facility] [place] [address].[place] [address], [place] Erythrocyte distribution width Auto Ratio (RBC)16.8 %Pywafm31.5-16.9The [facility] Medical CenterComment on above:Order Comment: No: Do not add to previous drawPerformed By: #### [id number] ####[facility] [place] [address].[place] [address], [facility]ALTH CENTERErythrocytes (RBC)4.30 mill/mm3 Normal3.50-5.50The [facility] Medical CenterComment on above:Order Comment: No: Do not add to previous drawPerformed By: #### [id number] ####[facility] [place] [address], [facility] HEALTH CENTERHematocrit (HCT) 35.3 %Low36.0-48.0The [facility] Medical CenterComment on above:Order Comment: No: Do not add to previous drawPerformed By: #### [id number] ####[facility] [place] [address], [facility] CENTERHemoglobin mass conc (Bld)11.5 g/dLLow12.0-15.0The [facility] Medical CenterComment on above:Order Comment: No: Do not add to previous drawPerformed By: #### [id number] ####[facility] [place] [address], [place] Lymphocytes/100 rvvknegaai69.9 %Mlwezk36.0-40.0The [facility] Medical CenterComment on above:Order Comment: No: Do not add to previous drawPerformed By: #### [id number] ####[facility] [place] [address], QQNOHH45.8 lnAdhhfb26.0-32.0The [facility] Comment on above:Order Comment: No: Do not add to previous drawPerformed By: #### [id number] ####[facility] [place] [address], [facility] CENTERMCHC mass conc (RBC)32.6 g/nUNbiuew91.0-36.0The [facility] Medical CenterComment on above:Order Comment: No: Do not add to previous draw Performed By: #### [id number] ####[facility] [place] [address], TELZUC33.2 wBWzuvxs23.0-100.0The [facility] Medical CenterComment on above:Order Comment: No: Do not add to previous draw Performed By: #### [id number] ####[facility] [place] [address], USAMETHODNormal RBC MorphologyNormalThe [facility] Medical CenterComment on above:Order Comment: No: Do not add to previous drawPerformed By: #### [id number] ####[facility] [place] [address], USAMONOS9.3 %High2-8The [facility] Medical CenterComment on above:Order Comment: No: Do not add to previous draw Performed By: #### [id number] ####[facility] [place] [address], USANeutrophils/100 djynljrbhw95.9 %Pzsoho36-33Nyg [facility] Medical CenterComment on above:Order Comment: No: Do not add to previous drawPerformed By: #### 71227 ####[facility] [place] [address], USAPLAT FHH675 Thou/am1Gumgds569-718 The [facility] Medical CenterComment on above:Order Comment: No: Do not add to previous drawPerformed By: #### [id number] ####[facility] [place] [address], USAWBC (Leukocytes)7.2 Thou/ov1Ujoefs0.0-10.0The [facility] Medical CenterComment on above: Order Comment: No: Do not add to previous drawPerformed By: #### [id number] ####[facility] [place] [address], [place] Cardiovascular Lab Reporton 05-49-9426Hizhsqqgmbxawe Lab ReportUnSouthwest General Health Center Patient Name: [facility] MR #: [id number] Physician: Dianna Jackson,Department of M.D.Medicine Service Date: 05/25/2017Division of Birthdate: 1980Cardiology Room #: 3AB [id number] CardiovascularServicesUnDaniel [place] [address] [facility] Hospitaltanesha.[place], [place] [address]Lznas Fax Cardiovascular Laboratory ReportFINAL IMPRESSIONS:1. 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 No evidence of aneurysmal dilation or stenosis in the abdominal aorta.RECOMMENDATIONS:1. Aggressive cardiovascular risk factor modification.2. Optimization of medical management; the patient's antihypertensive regimen will becontinued for now. Consider weaning off the medicine depending on her response to balloon angioplasty.3. Follow up with Dr. Mena or myself in the [facility] in the next 3-4 weeks.4. Follow up with Dr. Pretty as scheduled.PROCEDURES:1. Catheter placement in the abdominal aorta.2. Abdominal aortography.3. Bilateral selective renal angiography.4. Balloon angioplasty of the right renal artery.5. Placement of a 6-Guinean MynxGrip closure device.METHODS: After risks, benefits, and alternatives were explained, writteninformed consent was obtained. The patient was prepped and draped in theusual sterile fashion over both groins. Using 1% lidocaine solution localinfiltration, anesthesia was achieved. Using a modified Seldingertechnique, access to the right common femoral artery was obtained uti [employer] micropuncture kit. A 5-Guinean 11-cm sheath was inserted withoutdifficulty. Baseline femoralangiography was performed.A 5-Guinean Uni- Flush catheter was advanced over a J-wire and positioned inthe abdominal aorta. Abdominal aortography was performed under digitalsubtraction.A 5-Guinean JR4 roxie gnostic catheter was used for bilateral renalangiography. After reviewing the images, it was elected to proceed with aninterventional procedure.The 5-Guinean sheath was upsized to a 6-Guinean 11-cm sheath. A 6-Guinean IMcatheter was advanced over a J-wire and engaged into the right renalartery. A 0.014 Runthrough NS wire was advanced through the catheteracross the suspect stenoses and positioned distally. Balloon angioplastywas subsequently performed using a 5 x 20 Rafael balloon. The balloonwasremoved. Angiography was repeated, which showed a markedly improvedresult. The wire was removed. Final angiography showed excellent flowinto the kidney vessels with no evidence of dye extravasation, v esseltrauma, or thrombosis. The catheter was removed.A 6-Guinean MynxGrip closure device was deployed per protocol, achievingoptimal hemostasis. Overall, the patient tolerated the procedure well.Therewere no overt complications. She [facility] to [facility] in [facility] condition.FINDINGS: HEMODYNAMICS: AO [...] anatomysuitable for a closure device.INDICATIONS: Ms. Washington clare 36-year-old woman who developed new onsethypertension with [...] 05/25/2017/02:08 Thao/Dianna Jackson M.D.Date Trans: 05/26/2017 05:38 A/Markel_JN:[id number]: Taya Pretty M.D. [address] [place] [address] Sima Mena M.D. [address] [id number] [facility] [address] [facility] Vital Signs Date TimeVital SignValuePerforming VuelmofulVrtukcrl44-02-9119 10:01-0400Body camkoq396.94 cmTaya Pretty MD Work Phone: [facility]09-19-2025 10:01-0400 Body mass index (BMI) [Ratio]27.9 kg/n8BynnsjTaya Pretty MD Work Phone: [facility]09-19-2025 10:01-0400 Body avxbsv16.13 kgTaya Pretty MD Work Phone: [facility]09-19-2025 10:01-0400 Diastolic blood wewjdigg88 mm[Hg]Taya Pretty MD Work Phone: [facility]09-19-2025 10:01-0400 Heart rate83 /Rob Pretty MD Work Phone: [facility]09-19-2025 10:01-0400 Systolic blood ifycdbyd893 mm[Hg]Taya Pretty MD Work Phone: [facility]05-21-2024 15:03-0400 Body luxlfm398.94 cmF[facility]05-21-2024 15:03-0400Body mass index (BMI) [Ratio]23.8 kg/f3SbpzeaycoFlower Hospital05-21-2024 15:03-0400Body mazcfp72.15 kgFlower Hospital05-21-2024 15:03-0400Diastolic blood etleupbw280 mm[Hg][facility] 01-24-2024 15:03-0400Heart rate79 /[facility] 01-24-2024 15:03-0400Systolic blood fltxputw629 mm[Hg][facility]05-01-2023 15:45-0400Body pfbybm304.94 cmTaya Pretty Other [place] [employer] Other 05-01-2023 15:45-0400Body mass index (BMI) [Ratio] 25.13 kg/a4NqfkcwTaya Pretty Other [employer] Other 05-01-2023 15:45-0400Body ugitfd36.33 kgTaya Pretty Other [employer]Ath[employer] Other 05-01-2023 15:45-0400Diastolic blood bnxakjmt29 mm[Hg] Taya Pretty Other [employer] Other 05-01-2023 15:45-6644OeF8% (BldA) [Mass fraction]97 % Taya Pretty Other [employer]Ath[employer] Other 05-01-2023 15:45-0400Systolic blood mm[Hg] Taya Pretty Other [employer] Other Encounters Encounter DateEncounter TypeCare ProviderFacilityStart: 05-24-2025 End: 21-82-9062aozgxlgpyaUaivwb E Braun MD Work Phone: [facility] Work Phone: Start: 05-24-2025 End: 96-15-4661Ecqechb encounter procedureTaya Pretty MD-[facility] Work Phone: Start: 05-24-2025 End: 64-37-0804Rfsivkw encounter statusTaya Pretty MDMercy Health St. Elizabeth [facility] Hospitaltart: 87-03-1738Vwo-patient / Non-visitApscott Cruz MD-[facility] Professional [employer] Work Phone: Start: 10-10-2024 End: 50-04-1214hbjajlhjeeZQZQ [facility] Cent[facility]art: 08-25-2024 End: 32-02-9672Cvruzcmmz department patient visitMARCIA Tanesha OlsonMedica Sequoia Hospitaltart: 03-06-2024 End: 10-82-4127nabszqeecvSAJVIE JANCristhian AvailableStart: 01-24-2024 End: 69-28-9145cxgfqmmgbwMaxtjevxpGalion Community Hospital Work Phone: Start: 01-24-2024 End: 03-37-3416Haxzvym encounter procedureUnc Health [facility] Work Phone: Start: 45-32-2045Aha-patient / Non-visitUnc Health Southeastern Physician [facility] Professional Co Work Phone: Start: 92-76-9417Bic-patient / Non-visitFircarilion new river valley medical [facility] Physician [facility] Professional Co Work Phone: Start: 10-24-2023 End: 40-19-1785msbccroetxYXJFPomerene Hospitaltart: 10-06-2023 End: 11-90-3471qdqizlgkbmXjnxte Pretty Other [employer] Other Start: 33-27-9745Agdcoaqxp encounterMarcia SukhwinderSt. Elizabeth Hospitaltart: 01-07-2023 End: 99-55-9409tbjxouartkJxuxmm Pretty Other [employer] Other Start: 82-29-7363Usudqjbsq encounterMarcia [facility] Hospitaltart: 01-05-2023 End: 38-05-0844kokcqgxgxdAlpkkx Pretty Other [employer] Other Start: 48-91-4305Orbyrluam encounterMarcia Bassett Army Community Hospitaltart: 01-03-2023 End: 00-35-2438pifyrypyqeFC TAYA Valderrama [employer] Other Start: 54-19-6615Zdkvgt outpatient visit 15 minutes Taya [facility] Dallastart: 12-16-2022 End: 95-69-3870dravjoukttKY TAYA Tanesha SUKHWINDERFacility:O8Okcmf: 05-25-2017 End: 58-09-8464VtlvxsykibXDUM A ELTAHAWYFacility:[facility]ITALtart: 05-11-2017 End: 83-56-6273NycoasmmreRYZNVXY PHYSICIANFacility:[facility] Plan of Treatment DateCare ActivityDetailAuthorMG Breast - bilateral ScreeningAd[facility]Health [facility] Immunizations Immunization DateImmunizationNotesCare XkxkuwzzTlmhpodv97-11-8341etdrolc toxoid, reduced diphtheria toxoid, and acellular pertussis vaccine, adsorbedMarcia Sukhwinder Other [facility]07-16-2017diphtheria, tetanus toxoids and acellular pertussis vaccine, unspecified formulationMarcia Sukhwinder Other [facility] Payers DatePayer CategoryPayerPolicy [id number] Health [id number] [id number] [id number] [id number] UnknownUnknownOther1 ([id number] Social History DateTypeDetailFacilityUnknown if ever smokedNoAthlete Builder Other Sex Assigned At BirthSex Assigned At BirthNofulton state hospital MoonClerk Other Start: 10-66-7090Yxhebsn smoking status NHISSmoker (finding)[facility] Hospitaltart: 49-00-6111Ajg Assigned At KarlMercy Health St. Elizabeth [facility] Hospitaltart: 00-14-3900Mrtlonz smoking status NHISSmokes tobacco daily (finding)[facility] HospitalexFemale (finding)[facility] HospitalNEGATED: Highlighted [facility] Progress note 10-10-2024 Note Date & JhobWbrkTortordu98-70-7364 [facility] Chief Complaint: Patient [...] chest pain, SOB, and palpitations. HPI: Wayne Washington is a 44 y.o. female PMHx: [...] with Dr. Mena or myself in the [facility] in the next 3-4 weeks. 4. Follow up with Dr. Pretty as scheduled. PROCEDURES: 1. Catheter placement in the abdominal aorta. 2. Abdominal aortography. 3. Bilateral selective renal angiography. 4. Balloon angioplasty of the right renal artery. 5. Placement of a 6-Guinean MynxGrip closure device. Echocardiogram 10/28/2023: Normal ventricular systolic function. LVEF is 65%. 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 Mena or myself in the [facility] in the next 3-4 weeks. 4. Follow up with Dr. Pretty as scheduled. PROCEDURES: 1. Catheter placement in the abdominal aorta. 2. Abdominal aortography. 3. Bilateral selective renal angiography. 4. Balloon angioplasty of the right renal artery. 5. Placement of a 6-Guinean MynxGrip closure device. Assessment: Fibromuscular dysplasia of [...] Dianna Jackson MD, MPH (more content not included)...[facility] Evaluation note 10-06-2023 Note Date & HqsmKhnySkkirbub93-28-3585 Evaluation note* Encounter Date Diagnosis Assessment Notes Treatment Notes Treatment Clinical Notes Oct, Leukocytosis, unspecified type ( ICD-10 - D72.829) Oct,Iron deficiency anemia, unspecified iron deficiency anemia type (ICD-10 - D50.9) [employer] Other Evaluation note 01-03-2023 Note Date & HyxsXywuZbtztjiw03-73-0267 Evaluation note* Encounter Date Diagnosis Assessment Notes Treatment Notes Treatment Clinical Notes January, Leukocytosis, unspecified type ( ICD-10 - D72.829) Handwrote lab order to repeat CBC and ferritin. If referral needed, pt chooses the [facility] physician at the [facility]. January,Fatigue, unspecified type (ICD-10 - R53.83)Denies poor sleep problems or other issues. Reviewed labs, meds and d/w Wayne. [facility] Other Evaluation note Note Date & TypeNoteFacilityEvaluation noteNo InformationNortGeisinger Medical Center ObsEva Other Evaluation note Note Date & TypeNoteFacilityEvaluation noteNo assessment information available [facility] Work Phone: Evaluation note Note Date & TypeNoteFacilityEvaluation note* Diagnosis Onset Date Resolution Status Admit Date Essential (primary) hypertension acuteSept2024 10:00amGeneralized anxiety disorderacuteSept2024 10:00amIron deficiency anemiaacuteSept2024 10:00am Screening mammogram for breast canceracuteSept2024 10:00amWellness examinationacuteSept2024 10:00am [facility] Work Phone: History general Narrative - Reported Note Date & TypeNoteFacilityHistory general Narrative - Reported* Type Description Date Surgical History tubal ligation [facility] ObsEva Other Reason for referral (narrative) Note Date & TypeNoteFacilityReason for referral (narrative)No reason for referral information availableMercy Health U[facility] Hospital Work Phone: Summary Purpose Family History No Family History Records FoundNo Family History Records FoundNo Family History Records FoundNo Family History Records FoundNo Family History Records Found Advance Directives Advance Directive Response Recorded Date/ Time Advance Directives No January 23 2:02pm Chief Complaint and Reason for Visit Chief Complaint follow up Chief Complaint Admit Date Wellness May 24, 2025 10:00am Reason for Visit Admit Date Essential (primary) hypertension Septemb er 2024 10:00am Generalized anxiety disorder May 062024 10:00am Iron deficiency anemia May 24, 025 10:00am Screening mammogram for breast cancer Se ptember 2024 10:00am Wellness examination May 24 10:00am Additional Source Comments INFORMATION SOURCE (unrecogn ized section and content) DATE CREATED AUTHOR 02/28/2018 [facility] DATE CREATED AUTHOR AUTHOR'S ORGANIZ ATION 01/07/2023 [facility] DATE CREATED AUTHOR AUTHOR'S ORGANIZ ATION 03/08/2024 [facility] DATE CREATED AUTHOR AUTHOR'S ORGANIZ ATION 08/28/2024 [facility] DATE CREATED AUTHOR AUTHOR'S ORGANIZ ATION 10/12/2024 [facility] REASON FOR VISIT (unrecogniz ed section and [...] Care Provider Active Start: January 12, 2024 Lucas Purdy ProviderActiveStart: January 12, 2024 Team Status: Inactive Member Role Status Dates Taya Pretty MD Primary Care Provide r, Attending Provider Active Start: January 24, 2024 End: January 24, 2024 Team Status: Active Member Role Status Prabhu Pretty MD Primary Care Provider Active Start: May 09, 2025 Lucas Purdy ProviderActiveStart: May 09, 2025 Team Status: Inactive Member Role Status Dates Taya Pretty MD Primary Care Provider Active Start: May 24, 2025 End: May 24, 2025Lucas Chacko ProviderActiveStart: May 24, 2025 End: May 24, 2025 Goals (unrecognized section and content) Goals may [...] BE BASED ON THE PRIMARY CLINICAL RECORDS. [facility] HospitalGre[facility] [employer] [facility]. provides no warranty or guarantee of the accuracy or completeness of information in this document.
--- OUTSIDE RECORDS SUMMARY | 2025-07-15 06:41 | XMS_ITS | Patient Health Record ---
Author Organization [facility] [place] Address [address] [place] [address] Care Team Providers Care Awning Finisher Name Role Phone Taya Espinosa Primary Care Provider Shayla Anton Unavailable [phone] Results Component Value Reference Range Notes CBC AUTO DIFF (Not yet revie wed by provider) Interpretation: Performing Lab: Notes/Report: [facility] , White Blood Count 8.3 4.0-11.0 10 3/uL Red Blood Count5.424.20-5.40 10 6/gFHfqixfgtot81.912.0-16.0 g/pIYtizrpdvlx28.8 36.0-48.0 %Mean Corpuscular Jsvtfr87.381.0-99.0 fLMean Corpuscular Hemoglobin 29.326.7-34.0 pgMean Corpuscular HGB Conc34.029.9-35.2 g/dLRed Cell Distribution Width13.111.0-15.0 %Platelet Glzbt338507-221 10 3/uLMean Platelet Volume9.09.5- 13.5 fLNeutrophils Percent Auto58.943.0-75.0 %Lymphocytes Percent Auto30.420.5- 60.0 %Monocytes Percent Auto7.51.7-12.0 %Eosinophils Percent Auto2.20.9-7.0 % Basophils Percent Auto0.80.2-2.0 %Immature Granulocytes Pct Auto0.20.0-0.5 % Neutrophils Absolute Auto4.91.4-6.5 10 3/uLLymphocytes Absolute Auto2.51.2-3.8 10 3/uLMonocytes Absolute Auto0.60.3-0.8 10 3/uLEosinophils Absolute Auto0.20.0- 0.7 10 3/uLBasophils Absolute Auto0.10.0-0.1 10 3/uLImmature Granulocytes Abs Auto0.020.00-0.03 10 3/uLPerforming Lab:see noteML - [facility] LB PROF CHEM 8 (BAS METB) (Not yet reviewed by provider) Interpretation: Performing Lab: Notes/Report: [facility] ,Usjziz876942-837 mmol/LPotassium4.13.5-5.1 mmol/POfmizlfm17686-863 mmol/LCarbon Bysikmu90.721.0-32.0 mmol/LAnion Gap15.8Udobtgx4765-295 mg/dLBlood Urea Nitrogen 10.07.0-18.0 mg/dLCreatinine0.670.55-1.02 mg/dLEstimated GFR ( Tran>60 >=60 mL/min/1.73m 2Estimated GFR (Non- Cindy>60>=60 mL/min/1.73m 2BUN Creatinine Ratio14.6Xrhwdls3.88.5-10.1 mg/dLPerforming Lab:see noteML - [facility] LBVITAMIN D 25 [place] (Not yet reviewed by provider) Interpretation: Performing Lab: Notes/Report: [facility] ,Vitamin D21.5 <20 ng/mL Vit D deficient 20-<30 ng/mL Vit D insufficient 30-100 ng/mL Vit D sufficient >100 ng/mL Potential Toxicity Performing Lab:see noteML - [facility] LBIRON AND TIBC (Not yet reviewed by provider) Interpretation: Performing Lab: Notes/Report: [facility] ,Ikhl693.050.0-170.0 ug/dLTotal Iron Binding Osqygeqm677.0250.0-450.0 ug/dL Percent Iron Mmihosqczw78.3Performing Lab:see note - [facility] LB FERRITIN (Not yet reviewed by provider) Interpretation: Performing Lab: Notes/Report: [facility] ,Tfywuiqg20.08.0-252.0 ng/mLPerforming Lab:see noteML - [facility] LB Vitamin B12 (Not yet reviewed by provider) Interpretation: Performing Lab: Notes/Report: [facility] ,Vitamin [id number] pg/mL Performed at: [address] [id number] Telegraph Service Clerk: Royal Naylor PhD, Phone: [phone] Performing Lab:see note - [facility] LBVITAMIN D 25 [place] (Not yet reviewed by provider) Interpretation: Performing Lab: Notes/Report: [facility] ,Vitamin D34.6 <20 ng/mL Vit D deficient 20-<30 ng/mL Vit D insufficient 30-100 ng/mL Vit D sufficient >100 ng/mL Potential Toxicity Performing Lab:see note - [facility] LBPROF 14(COMP METB) (Not yet reviewed by provider) Interpretation: Performing Lab: Notes/Report: [facility] ,Mixmzq377223-218 mmol/LPotassium3.83.5-5.1 mmol/GFjsqmlec03707-077 mmol/LCarbon Dzgpwov18.621.0-32.0 mmol/LAnion Gap12.5Jmcpfss27108-294 mg/dLBlood Urea Mxnabfcy17.07.0-18.0 mg/dLCreatinine0.760.55-1.02 mg/dLEstimated GFR ( Tran>60>=60 mL/min/1.73m 2Estimated GFR (Non- Cindy>60>=60 mL/min/1.73m 2BUN Creatinine Ratio19.1Chhfjyf3.48.5-10.1 mg/dLBilirubin Total0.10.2-1.0 mg/dL Aspartate Amino Culuyakrohe463-89 U/LAlanine Ujkxkfdowlzmtqfy3344-21 U/LAlkaline Zseqnyqjruk5401-370 U/LTotal Protein7.86.4-8.2 g/dLAlbumin Level3.83.4-5.0 g/dL Globulin4.0Albumin Globulin Ratio0.9Performing Lab:see note - [facility] LBIRON AND TIBC (Not yet reviewed by provider) Interpretation: Performing Lab: Notes/Report: [facility] ,Iron51.050.0-170.0 ug/dLTotal Iron Binding Qvkgtnwg900.0250.0-450.0 ug/dL Percent Iron Wrrlnfugsj80.8Performing Lab:see noteML - [facility] LB FERRITIN (Not yet reviewed by provider) Interpretation: Performing Lab: Notes/Report: [facility] ,Yjnmbwir83.08.0-252.0 ng/mLPerforming Lab:see noteML - [facility] LB CBC AUTO DIFF (Not yet reviewed by provider) Interpretation: Performing Lab: Notes/Report: [facility] ,White Blood Count9.84.0-11.0 10 3/uLRed Blood Count4.974.20-5.40 10 6/uL Bvgfakchal58.112.0-16.0 g/yFAleilkessb11.436.0-48.0 %Mean Corpuscular Zvmznu09.3 81.0-99.0 fLMean Corpuscular Dqoftwdrxi27.426.7-34.0 pgMean Corpuscular HGB Conc 34.829.9-35.2 g/dLRed Cell Distribution Width12.511.0-15.0 %Platelet Qrcay924 150-450 10 3/uLMean Platelet Weglil54.49.5-13.5 fLNeutrophils Percent Auto57.5 43.0-75.0 %Lymphocytes Percent Auto30.820.5-60.0 %Monocytes Percent Auto8.41.7- 12.0 %Eosinophils Percent Auto2.30.9-7.0 %Basophils Percent Auto0.70.2-2.0 % Immature Granulocytes Pct Auto0.30.0-0.5 %Neutrophils Absolute Auto5.61.4-6.5 10 3/uLLymphocytes Absolute Auto3.01.2-3.8 10 3/uLMonocytes Absolute Auto0.80.3-0.8 10 3/uLEosinophils Absolute Auto0.20.0-0.7 10 3/uLBasophils Absolute Auto0.10.0- 0.1 10 3/uLImmature Granulocytes Abs Auto0.030.00-0.03 10 3/uLPerforming Lab:see noteML - [facility] LBErythrocyte Sedimentation Rate (Not yet reviewed by provider) Interpretation: Performing Lab: Notes/Report: [facility] ,Erythrocyte Sedimentation Rate13<=20 mm/hrPerforming Lab:see noteML - [facility] LBVITAMIN D 25 [place] (Not yet reviewed by provider) Interpretation: Performing Lab: Notes/Report: [facility] ,Vitamin D8.1 <20 ng/mL Vit D deficient 20-<30 ng/mL Vit D insufficient 30-100 ng/mL Vit D sufficient >100 ng/mL Potential Toxicity Performing Lab:see noteML - [facility] LBTSH (Not yet reviewed by provider) Interpretation: Performing Lab: Notes/Report: [facility] ,Thyroid Stimulating Hormone1.5890.358-3.740 uIU/mLPerforming Lab:see noteML - [facility] LBPROF 14(COMP METB) (Not yet reviewed by provider) Interpretation: Performing Lab: Notes/Report: [facility] ,Fvssvi909989-188 mmol/LPotassium4.33.5-5.1 mmol/UNlxqsofg28211-833 mmol/LCarbon Vlfsjgb11.521.0-32.0 mmol/LAnion Gap12.4Dbmpoiw5077-641 mg/dLBlood Urea Nitrogen 13.07.0-18.0 mg/dLCreatinine0.730.55-1.02 mg/dLEstimated GFR ( Tran>60 >=60 mL/min/1.73m 2Estimated GFR (Non- Cindy>60>=60 mL/min/1.73m 2BUN Creatinine Ratio17.6Pszbesw7.68.5-10.1 mg/dLBilirubin Total0.20.2-1.0 mg/dL Aspartate Amino Mzcafzpgtmw3310-49 U/LAlanine Lyburexsgccphfus4111-61 U/L Alkaline Agsvszddrhf0276-964 U/LTotal Protein7.66.4-8.2 g/dLAlbumin Level3.63.4- 5.0 g/dLGlobulin4.0Albumin Globulin Ratio0.9Performing Lab:see noteML - [facility] LBIRON AND TIBC (Not yet reviewed by provider) Interpretation: Performing Lab: Notes/Report: [facility] ,Iron73.050.0-170.0 ug/dLTotal Iron Binding Nhcsxecf637.0250.0-450.0 ug/dL Percent Iron Yoalimfaaw54.4Performing Lab:see note - [facility] LB FERRITIN (Not yet reviewed by provider) Interpretation: Performing Lab: Notes/Report: [facility] ,Oeqedqhk82.08.0-252.0 ng/mLPerforming Lab:see note - [facility] LB CRP (Not yet reviewed by provider) Interpretation: Performing Lab: Notes/Report: [facility] ,C Reactive Protein0.51<=0.50 mg/dLPerforming Lab:see note - [facility] LBCBC AUTO DIFF (Not yet reviewed by provider) Interpretation: Performing Lab: Notes/Report: [facility] ,White Blood Count11.14.0-11.0 10 3/uLRed Blood Count5.364.20-5.40 10 6/uL Hpfpmnmoyj37.012.0-16.0 g/gHUggyajzymh69.936.0-48.0 %Mean Corpuscular Nhyfox72.5 81.0-99.0 fLMean Corpuscular Jbdqcmjjns49.926.7-34.0 pgMean Corpuscular HGB Conc 34.129.9-35.2 g/dLRed Cell Distribution Width12.611.0-15.0 %Platelet Prphd415 150-450 10 3/uLMean Platelet Volume9.39.5-13.5 fLNeutrophils Percent Auto69.3 43.0-75.0 %Lymphocytes Percent Auto19.620.5-60.0 %Monocytes Percent Auto7.41.7- 12.0 %Eosinophils Percent Auto2.80.9-7.0 %Basophils Percent Auto0.60.2-2.0 % Immature Granulocytes Pct Auto0.30.0-0.5 %Neutrophils Absolute Auto7.71.4-6.5 10 3/uLLymphocytes Absolute Auto2.21.2-3.8 10 3/uLMonocytes Absolute Auto0.80.3-0.8 10 3/uLEosinophils Absolute Auto0.30.0-0.7 10 3/uLBasophils Absolute Auto0.10.0- 0.1 10 3/uLImmature Granulocytes Abs Auto0.030.00-0.03 10 3/uLPerforming Lab:[facility]Western [facility] LBVitamin B12 (Not yet reviewed by provider) Interpretation: Performing Lab: Notes/Report: [facility] ,Vitamin [id number] pg/mL Performed at: [facility] [address] [id number] Telegraph Service Clerk: Royal Naylor PhD, Phone: [phone] Performing Lab:[facility]SH[facility] LBVitamin B12 (Not yet reviewed by provider) Interpretation: Performing Lab: Notes/Report: [facility] ,Vitamin [id number] pg/mL Performed at: [address] [id number] Telegraph Service Clerk: Royal Naylor PhD, Phone: [phone] Performing Lab:see [facility] LB Reason For Referral No Information Encounters Encounter Location Date Provider Diagnosis [facility] [address] [place] [address] [facility] [address] [place] [address] [facility] [address] [place] [address] Of Treatment Pending Test Test Name Order Date CBC AUTO DIFF 12/20/2023 CBC AUTO DIFF 03/09/2024 CBC AUTO DIFF 09/18/2024 CBC AUTO DIFF 02/07/2025 CBC AUTO DIFF 05/09/2025 CBC AUTO DIFF 01/12/2024 CRP 09/18/2024 CRP 03/09/2024 CRP 12/20/2023 FERRITIN 12/20/2023 FERRITIN 03/09/2024 FERRITIN 02/07/2025 FERRITIN 09/18/2024 FERRITIN 05/09/2025 FERRITIN 01/12/2024 FOLATE 01/12/2024 FREE T4 01/12/2024 IRON AND TIBC 02/07/2025 IRON AND TIBC 01/12/2024 IRON AND TIBC 09/18/2024 IRON AND TIBC 05/09/2025 IRON AND TIBC 12/20/2023 IRON AND TIBC 03/09/2024 PROF 14(COMP METB) 09/18/2024 PROF 14(COMP METB) 01/12/2024 PROF 14(COMP METB) 02/07/2025 PROF CHEM 8 (BAS METB) 05/09/2025 TSH 01/12/2024 TSH 09/18/2024 VITAMIN D 25 [place] 03/09/2024 VITAMIN D 25 [place] 09/18/2024 VITAMIN D 25 [place] 02/07/2025 VITAMIN D 25 [place] 01/12/2024 VITAMIN D 25 [place] 05/09/2025 Erythrocyte Sedimentation Rate Erythrocyte Sedimentation Rate Erythrocyte Sedimentation Rate 4 Vitamin B12 03/09/2024 Vitamin B12 01/12/2024 Vitamin B12 05/09/2025 Vitamin B12 02/07/2025 Vitamin B12 09/18/2024 Next Appt Details Provider Name:SHAYLA RUFF , 08/13/2025 08:30:00 AM, [address] [place], [address], Insurance Providers Payer Name Payer Address Payer Phone Subscriber Number Group Number Insured Name Patient Relationship to Insured Coverage Start Date Coverage End Date [facility] [address] [place], [place] [id number] Wayne Washington Self - patient is the insured
--- OUTSIDE RECORDS SUMMARY | 2025-07-15 06:41 | XMS_ITS | Clinical Summary ---
Author Organization [facility] Address [address] [place] [address] Care Team Providers Care Trimming Press Operator Name Role Phone Taya Espinosa MD Primary Care Provider [phone] Allergies Active AllergyReactionsCriticalityNoted ZokxEuekrwovTfeibyccgmdWsuxx42/06/2023 Intolerance, vivid dreams, mood swings, irritability Medications MedicationSigDispense QuantityRefillsLast FilledStart DateEnd DateStatus buPROPion SR (Wellbutrin SR) 150 mg 12 hr tablet Indications:Smoking trying to quitTake 1 tablet (150 mg) by mouth in the morning and at bedtime. Do not crush, chew, or split. *Startby taking 1 tablet daily for 3 days then increase to twice daily* 60 tablet 1103Active ergocalciferol (Vitamin D-2) 1.25 MG (50739 Units) capsule Take 1 capsule by mouth every 7 (seven) days.5Active amLODIPine (Norvasc) 10 mg tablet Indications:Essential hypertensionTake 1 tablet (10 mg) by mouth once daily as directed. 90 tablet 5Active losartan (Cozaar) 50 mg tablet Indications:Essential hypertensionTAKE ONE TABLET BY MOUTH ONCE DAILY DIRECTED 90 tablet 5Active Active Problems ProblemNoted DateDiagnosed DateChronic rauiybc3103/03/2024OSA (obstructive sleep apnea)03/03/2024Fibromuscular dysplasia of right renal gvwzqq8312/09/2022Essential ocdwcjehsinz64 Family History Medical HistoryRelationNameCommentsHeart attackFatherDiabetesMotherHeart attack MotherRelationNameStatusCommentsFatherMother Social History Tobacco UseTypesPacks/DayYears UsedDateSmoking Tobacco: Every DayCigarettes0.515 Tobacco Cessation:Ready to Q uit: No; Counseling Given: Not Answered Alcohol UseStandard Drinks/WeekCommentsYes0 (1 standard drink = 0.6 oz pure alcohol)UT Safety & EnvironmentAnswerDate RecordedFear of Current or Ex-Partner Not on file10/27/2023Emotionally AbusedNot on file10/27/2023hysically AbusedNot on file10/27/2023Sexually AbusedNot on file10/27/2023hysically or Sexually AbusedNot on file10/27/2023CommentsUnknownSex and Gender Information ValueDate RecordedSex Assigned at BirthNot on fileLegal QseUkferi08/29/2022 11:59 PM EDTGender IdentityNot on fileSexual OrientationNot on file Last Filed Vital Signs Vital SignReadingTime TakenCommentsBlood Raaycmxz589/8002 9:19 AM EST Ajzlq431410/10/2024 9:19 AM ESTTemperature--Respiratory Rate--Oxygen Fyopsjtvgh50% 10/10/2024 9:19 AM ESTInhaled Oxygen Concentration--Hiwfum06.6 kg (138 lb) 10/10/2024 9:19 AM FOGNdvdep016.5 cm (5' 2 )10/10/2024 9:19 AM ESTBody Mass Index25.24010/10/2024 9:19 AM EST Plan of Treatment Health MaintenanceDue DateLast DoneCommentsDepression Jptbplgwb82/06/1993 Varicella Vaccines (1 of 2 - 13+ 2-dose series)1994Hepatitis B Vaccines (1 of 3 - 19+ 3-dose series)2000Pneumococcal Vaccine: Pediatrics (0 to 5 Years) and At-Risk Patients (6 to 64 Years) (1 of 2 - PCV)2000Pap Smear 2002HPV Vaccines (1 - 3-dose SCDM series)2008Cervical Cancer Wihnxagpd85/06/2011HPV/Gvuzmi7006/10/20114250Attdeqqul19/06/2021COVID-19 Vaccine (2024- season)2025Influenza Vaccine (#1)2025dult Yfhamvh0603/20/2027 03/20/2017Zoster Vaccines (1 of 2)2031HIB VaccinesAged OutNo longer eligible based on patient's age to complete this topicIPV VaccinesAged OutNo longer eligible based on patient's age to complete this topicMeningococcal B VaccineAged OutNo longer eligible based on patient's age to complete this topic Meningococcal VaccineAged OutNo longer eligible based on patient's age to complete this topicRotavirus VaccinesAged OutNo longer eligible based on patient's age to complete this topic Insurance Care Teams Team MemberRelationshipSpecialtyStart DateEnd Date Taya Espinosa MD [address] [facility]12/08/22
--- OUTSIDE RECORDS SUMMARY | 2025-07-15 06:41 | XMS_ITS | Clinical Summary ---
Author Organization [employer] [facility] tem Address [facility] [id number] [place] [address] Care Team Providers Care Front End Loader Driver Name Role Phone Taya Espinosa MD Primary Care Provider [phone] Allergies No known active allergies Medications MedicationSigDispense QuantityRefillsLast FilledStart DateEnd DateStatus lisinopriL (PRINIVIL,ZESTRIL) 10 mg tablet Take 10 mg by mouth in the morning.Active amLODIPine (NORVASC) 10 mg tablet Take 10 mg by mouth in the morning.Active losartan (COZAAR) 50 mg tablet Take 1 tablet (50 mg total) by mouth in the morning.Active Social History Tobacco UseTypesPacks/DayYears UsedDateSmoking Tobacco: Every DayCigarettes Smokeless Tobacco: Never Tobacco Cessation:Ready to Q uit: Not Asked; Counseling Given: Not Answered Alcohol UseStandard Drinks/WeekCommentsNot Currently0 (1 standard drink = 0.6 oz pure alcohol)ChildcareAnswerDate ZpdbzggiCkpafjhdeMyitgki95/12/2019Employment AnswerDate CyqunqmmEjlfyhxlvgFregqyn20/12/2019Hunger ScreeningAnswerDate RecordedWithin the past 12 months we worried whether our food would run out before we got money to buy more.Never True08/25/2024Within the past 12 months the food we bought just didn't last and we didn't have money to get more.Never True4CommentsNoSex and Gender InformationValueDate RecordedSex Assigned at BirthNot on fileLegal MyjQrqhkn76/06/2015 11:29 AM EDTGender IdentityNot on fileSexual OrientationNot on file Last Filed Vital Signs Vital SignReadingTime TakenCommentsBlood Lscqtfaa415/8908/25/2024 10:57 PM EST Keucr548808/25/2024 10:57 PM EBDZdhmijfqsvx57.3 ??C (97.4 ??F)08/25/2024 9:00 PM ESTRespiratory Rcdh641410/26/2023 10:57 PM ESTOxygen Yhlwxxktlj10%08/25/2024 10:57 PM ESTInhaled Oxygen Concentration--Scmjav26.4 kg (120 lb)08/25/2024 9:00 PM EST Tvkrod847.9 cm (5' 1 )08/25/2024 9:00 PM ESTBody Mass Index22.6708/25/2024 9:00 PM EST Plan of Treatment Health MaintenanceDue DateLast DoneCommentsTobacco Fyywayodvi1981 Depression Ymtjmsdme25/06/1993Pap Smear2002Influenza Izeylcp0705/06/2025 Adult BMI Tjhilcexi81Tobacco Ahpzjrxlw00 DTaP,Tdap and Td Vaccines (2 - Td or Tdap) Medical Devices Not on file Insurance * Guarantor: Wayne Washington TypeRelation to PatientDate of BirthPhone Billing AddressPersonal/PqrbbfKfsm1980 [address] [address] Care Teams Team MemberRelationshipSpecialtyStart DateEnd Date Taya Espinosa MD [address] [place] [address] PCP - GeneralFamily Medicine02/15/22
--- OUTSIDE RECORDS SUMMARY | 2025-07-15 06:41 | XMS_ITS | Clinical Summary ---
Author Organization [facility] Address [address] [place] [address] Care Team Providers Care Utility Operator Yarn Name Role Phone Taya Espinosa MD Primary Care Provider [phone] Allergies Active AllergyReactionsCriticalityNoted KppuAhwhyyngSkagzbisxgoRtqou70/06/2023 Intolerance, vivid dreams, mood swings, irritability Medications MedicationSigDispense QuantityRefillsLast FilledStart DateEnd DateStatus amLODIPine (Norvasc) 10 MG tablet 1 cvqmmy7701/20/2024ctive buPROPion SR (Wellbutrin SR) 150 MG 12 hr tablet 1 kcaoxx2601/20/2024ctive losartan (Cozaar) 50 MG tablet Take 1 tablet by mouth Daily02/23/2024ctive Active Problems ProblemNoted DateDiagnosed DateChronic ojycnuv2403/03/2024OSA (obstructive sleep apnea)03/03/2024 Social History Tobacco UseTypesPacks/DayYears UsedDateSmoking Tobacco: Every DayCigarettes Tobacco Cessation:Ready to Q uit: Not Asked; Counseling Given: Not Answered Alcohol UseStandard Drinks/WeekCommentsYes0 (1 standard drink = 0.6 oz pure alcohol)2-4 time a monthCommentsUnknownSex and Gender InformationValue Date RecordedSex Assigned at BirthNot on fileLegal TorStwmrn93/15/2023 11:00 PM EDTGender IdentityNot on fileSexual OrientationNot on file Last Filed Vital Signs Vital SignReadingTime TakenCommentsBlood Afprhhlb368/8207 4:17 PM EDT Gumxr2835 4:17 PM EDTTemperature--Respiratory Rate--Oxygen Dkpbmcqdrl38% 03/06/2024 4:17 PM EDTInhaled Oxygen Concentration--Ofcaei59.9 kg (132 lb) 03/06/2024 4:17 PM GZISdnlfk840.9 cm (5' 1 )03/06/2024 4:17 PM EDTBody Mass Index24.9403/06/2024 4:17 PM EDT Plan of Treatment Not on file Insurance Care Teams Team MemberRelationshipSpecialtyStart DateEnd Date Taya Espinosa MD PCP - GeneralFamily Medicine02/16/24
[2025-07-15 07:07] LABS: Anion Gap 14.1; Blood Urea Nitrogen 11.0 mg/dL (7.0-18.0); Calcium 8.2 mg/dL (8.5-10.1); Carbon Dioxide 24.9 mmol/L (21.0-32.0); Chloride 106 mmol/L (98-107); Cholesterol 176 mg/dL (<=200); Estimated GFR (African America >60 (>=60 mL/min/1.73m^2); Estimated GFR (Non-African Ame >60 (>=60 mL/min/1.73m^2); Glucose 105 mg/dL (74-106); HDL Cholesterol 29 mg/dL (40-60); Potassium 4.0 mmol/L (3.5-5.1); Sodium 141 mmol/L (136-145); Triglycerides 113 mg/dL (<=150); VLDL CHOLESTEROL 22.6 mg/dL
[2025-07-15 12:34] LABS: TSH W/ REFLEX FT4 2.200 uIU/mL (0.358-3.740)
== END 2025-07-15 06:36 | disposition home or self-care (01) ==
PROVIDERS: PCP Family Medicine; Visit Provider Family Medicine
DX: Z00.00 Encounter for general adult medical examination without abnormal findings (principal); I10 Essential (primary) hypertension; D50.9 Iron deficiency anemia, unspecified; R53.82 Chronic fatigue, unspecified
CPT/HCPCS: 36415; 80048; 80061; 84443

== ENCOUNTER 2025-08-09 16:07 | Outpatient (OUT) | payer OTHER, SELFPAY ==
--- OUTSIDE RECORDS SUMMARY | 2025-08-09 16:10 | XMS_ITS | CCD ---
Author Organization [facility] CliniSy[facility] Care Team Providers Care Assistant Professor Of Biology Name Role Phone PHYSICIAN, DEFAULT Unavailable Unavailable [...] Attending Provider Taya Pretty MD Attending Provider [phone] Allergies Allergy ClassificationReported Allergen(s)Allergy TypeDate of OnsetReaction(s) Facility (2 sources)No Known Allergies; Translations: [No Known Allergies]Propensity to adverse reactions (disorder)54-61-9716[facility] (1 source)patient allergy list reviewed by nurse or physiciaPropensity to adverse bhmjzbrid45-50-8563Nbivtzz:DoneNortNorwood Systems Other (1 source)Allergies ReconciledPropensity to adverse reactionsUnknoPrognomix Other (1 source)varenicline; Translations: [VARENICLINE]Drug Avwkhmz00-15-7100 [facility] Medications Current Medications MedicationDrug Class(es)DatesSig (Normalized)Sig (Original)amLODIPine 10 mg oral tablet (6 sources)Dihydropyridine Calcium Channel BlockerStart: 70-30-8258pbmv 1 tablet by mouth once dailyAmlodipine 10 mg tablet Active 1 TAB PO Daily January 20, 2024 12:00am FreeTextSi tablet Orally Once a day; Note: Source Status: Taking; Provider: Sukhwinder Bain ( ) Complies with drugtherapytake 1 tablet by mouth every twenty-four hoursamLODIPine Besylate 10 MG 1 tablet Orally Once a day Yslbcs45 hr buPROPion hydrochloride 150 mg extended release oral tablet (8 sources)AminoketoneStart: 01-20-2024 End: 32-30-1523nuyo 1 tablet by mouth once dailyBupropion Hcl (Wellbutrin Sr) 150 mg tablet sustained-release 12 hr Active 150 MG PO Daily April 01, 2025 3:24pm Complies with drug therapytake 1 tablet by mouth every twenty-four hours Wellbutrin SR 150 MG 1 tablet in the morning Orally Once a day Activelosartan potassium 50 mg oral tablet (1 source)Angiotensin 2 Receptor BlockerStart: 40-65-8165ueqf 1 tablet by mouth once dailyLosartan 50 mg tablet Active 50 MG PO Daily January 24, 2024 12:00am Complies with drug therapy Completed/Discontinued Medications MedicationDrug Class(es)DatesSig (Normalized)Sig (Original)amoxicillin 875 mg / clavulanate 125 mg oral tablet (1 source)Penicillin-class AntibacterialStart: 08-30-2024 End: 72-63-0871gond 1 tablet by mouth twice dailyAmoxicillin-Pot Clavulanate 875-125 mg tablet Discontinued 1 TAB PO Twice daily August 30, 2024 1:00am May 24, 2025 10:04amhydroCHLOROthiazide 12.5 mg / losartan potassium 50 mg oral tablet (6 sources)Thiazide Diuretic, Angiotensin 2 Receptor BlockerStart: 01-20-2024 End: 01-12-3880thzi 1 tablet by mouth once dailyLosartan-Hydrochlorothiazide 50- [...] (3 sources)Generalized anxiety disorder; Translations: [Generalized anxiety disorder]87-26-7172UsjuupaTcwpdgfeeq and other anemia (4 sources)Iron deficiency anemia; Translations: [Iron deficiency anemia, unspecified]70-93-3388XhkwjjecGeuhuzudsz and other anemia (1 source)Iron deficiency anemia, unspecifiedEpisodicDiseases of white blood cells (7 sources)Leukocytosis; Translations: [Elevated white blood cell count, unspecified]Onset: 63-85-9195QgelhmoZztjafzwb hypertension (14 sources)Essential (primary) hypertension; Translations: [Benign essential hypertension]Onset: 73-86-1729OigqdmhTqsgrxte; including migraine (1 source)Headache; including migraine; Translations: [Headache, unspecified] Onset: 51-06-5705Rfzgahpcueux with complications and secondary hypertension (2 sources)Renovascular hypertension; Translations: [Renovascular hypertension] Onset: 42-10-6782LwmtuwrWuiobud and fatigue (6 sources)Other fatigue; Translations: [Fatigue]Onset: 22-55-2774SuocjrlfCfwmd circulatory disease (7 sources)Arterial fibromuscular dysplasia; Translations: [ARTERIAL FIBROMUSCULAR DYSPLASIA]Onset: 48-21-2917DkbmcuoYeuhl circulatory disease (1 source)Elevated blood-pressure reading, without diagnosis of hypertension; Translations: [Elevated blood-pressure reading, without diagnosis of hypertension]Onset: 71-26-7595QaklikedHmspu ear and sense organ disorders (1 source)Infective otitis externa; Translations: [Unspecified infective otitis externa]Onset: 58-85-0858TzpkwueSavsu screening for suspected conditions (not mental disorders or infectious disease) (2 sources)Patient encounter status; Translations: [Encounter for screening mammogram for malignant neoplasm of breast]22-40-9578PsxtlnhqUadnh skin disorders (1 source)Disorder of skin and/or subcutaneous tissue; Translations: [Disorder of the skin and subcutaneous tissue, unspecified]EpisodicOther upper respiratory disease (1 source)Seasonal allergic rhinitis; Translations: [Other seasonal allergic rhinitis]ChronicOther upper respiratory infections (1 source)Chronic sinusitis; Translations: [Chronic sinusitis, unspecified] ChronicOther upper respiratory infections (3 sources)Acute pharyngitis; Translations: [Acute pharyngitis, unspecified] Onset: 771505-70-4256NeebcdbeKawnhxjh codes; unclassified (1 source)Obstructive sleep apnea syndrome; Translations: [Obstructive sleep apnea (adult) (pediatric)]16-40-0095EngwujhNhbuyrvn codes; unclassified (1 source)Tobacco user; Translations: [Nondependent tobacco use disorder] EpisodicResidual codes; unclassified (1 source)Family history of diabetes mellitus; Translations: [Family history of diabetes mellitus]EpisodicSubstance-related disorders (1 source)Nicotine dependence, unspecified, uncomplicated; Translations: [NICOTINE DEPENDENCE, UNSPECIFIED, UNCOMPLICATED]Onset: 16-96-8441Zaliugk Unclassified (2 sources)Unknown / UNK(Unknown)Onset: 05-25-2017 Past or Other Problems Problem ClassificationProblemDateDocumented DateEpisodic/ChronicOther lower respiratory disease (2 sources)Other forms of dyspnea; Translations: [Other forms of dyspnea]Onset: 09-04-5053RzbnjnriIyshk non-traumatic joint disorders (1 source)Hand joint pain; Translations: [Pain in joint, hand]Onset: 12-16-2014 Episodic Results Test NameValueInterpretationReference RangeFacilityBasophils Auto (Bld) [#/Vol] Ordered By: Shayla Cruz on 18-00-1038Nqinyghzp (Bld) [#/Vol]0.1 10 3/uL 0.0-0.1FOhioHealthBasophils/100 WBC Auto (Bld)Ordered By: Shayla Cruz on 11-61-1138Cbxryyehy/100 WBC (Bld)0.8 %0.2-2.0[facility] HamiltonEosinophils/100 WBC Auto (Bld)Ordered By: Shayla Cruz on 23-40-0568Godrqxxezhz/100 WBC (Bld)2.2 %0.9-7.0[facility] HamiltonErythrocyte distribution width Auto (RBC) [Ratio]Ordered By: Shayla Cruz on 20-29-4646Kuswauormiw distribution width (RBC) [Ratio]13.1 %11.0-15.0 [facility] HamiltonGlomerular filtration rate (GFR) estimation in non- AmericanOrdered By: Shayla Cruz on 33-16-9517KUL/1.73 sq M.predicted among non-blacks MDRD (S/P/Bld) [Vol rate/Area]mL/min/{1.73_m2}>=60 mL/min/1.73m 2FOhioHealthHematocrit Auto (Bld) [Volume fraction]Ordered By: Shayla Cruz on 96-00-9230Waukeeqofm (Bld) [Volume fraction]46.8 %36.0-48.0[facility] HamiltonHemoglobin [Mass/volume] in BloodOrdered By: Shayla Cruz on 91-26-9842Dwmzmhepvk (Bld) [Mass/Vol]15.9 g/dL12.0-16.0[facility] HamiltonIron binding capacity [Mass/volume] in Serum or PlasmaOrdered By: Shayla Cruz on 86-94-2219Jfen binding capacity [Mass/Vol]403.0 ug/dL250.0-450.0[facility] HamiltonIron saturation [Mass Fraction] in Serum or PlasmaOrdered By: Shayla Cruz on 59-20-6068Biey saturation [Mass fraction]26.3 %[facility] HamiltonLaboratory - Chemistry and Chemistry - challengeOrdered By: Shayla Cruz on 26-37-1076Qjsgogr [Mass/Vol]8.8 mg/dL8.5-10.1FOhioHealthChloride [Moles/Vol]103 mmol/A48-872MtnegvcbxKettering Health HamiltonCO2 [Moles/Vol]24.7 mmol/L21.0-32.0[facility] HamiltonCobalamin (Vitamin B12) [Mass/Vol]672 pg/mD359-9134HbjkqmhvzKettering Health HamiltonComment on above:Performed at: - [facility] [address] [id number] Director: Royal Naylor PhD, Phone: [phone] Creatinine [Mass/Vol]0.67 mg/dL0.55-1.02[facility] Ferritin [Mass/Vol]24.0 ng/mL8.0-252.0[facility] HamiltonGFR/1.73 sq M.predicted MDRD (S/P/Bld) [Vol rate/Area]mL/min/{1.73_m2}>=60 mL/min/1.73m 2 [facility] HamiltonGlucose [Mass/Vol]98 mg/vL92-335KzbwfrhgzKettering Health HamiltonIron [Mass/Vol]106.0 ug/dL50.0-170.0[facility] HamiltonPotassium [Moles/Vol]4.1 mmol/L3.5-5.1FCleveland Clinic Avon Hospitalodium [Moles/Vol]139 mmol/G876-215MmrmvakikKettering Health HamiltonUrea nitrogen [Mass/Vol]10.0 mg/dL7.0-18.0[facility] HamiltonUrea nitrogen/Creatinine [Mass ratio]14.9 mg/mgKettering Health Hamilton Laboratory - Hematology and Cell countsOrdered By: Shayla Cruz on 05-09-2025 Immature granulocytes/100 WBC (Bld)0.2 %0.0-0.5FOhioHealth Leukocytes [#/volume] corrected for nucleated erythrocytes in Blood by Automated counOrdered By: Shayla Cruz on 05-64-9923ZUW corrected for nucl RBC Auto (Bld) [#/Vol]8.3 10 3/uL4.0-11.0[facility] HamiltonLymphocytes Auto (Bld) [#/Vol]Ordered By: Shayla Cruz on 08-82-3419Yaqhrnokgfc (Bld) [#/Vol]2.5 10 3/uL1.2-3.8[facility] HamiltonLymphocytes/100 WBC Auto (Bld)Ordered By: Shayla Cruz on 94-17-0830Wcjoaxsbuxm/100 WBC (Bld)30.4 %20.5-60.0[facility] HospitalH Auto (RBC) [Entitic mass]Ordered By: Shayla Schmitzla on 06-45-0289BIV (RBC) [Entitic mass]29.3 pg26.7-34.0 [facility] HamiltonMCHC Auto (RBC) [Mass/Vol]Ordered By: Shaylathomas Cruz on 91-98-4475CIAK (RBC) [Mass/Vol]34.0 g/dL29.9-35.2FOhioHealthMCV Auto (RBC) [Entitic vol]Ordered By: Shaylaterence Cruz on 14-31-1993FMM (RBC) [Entitic vol]86.3 fL81.0-99.0[facility] HamiltonMonocytes Auto (Bld) [#/Vol]Ordered By: Shayla Cruz on 05-09-2025 Monocytes (Bld) [#/Vol]0.6 10 3/uL0.3-0.8[facility] Monocytes/100 WBC Auto (Bld)Ordered By: Shayla Anthony on 05-09-2025 Monocytes/100 WBC (Bld)7.5 %1.7-12.0[facility] HamiltonNeutrophils Auto (Bld) [#/Vol]Ordered By: Shayla Anthony on 17-84-7306Hioxirdhryc (Bld) [#/Vol]4.9 10 3/uL1.4-6.5FOhioHealthNeutrophils/100 WBC Auto (Bld)Ordered By: Shayla Anthony on 84-14-0992Lhhuqmfvboe/100 WBC (Bld)58.9 %43.0-75.0[facility] HamiltonNo Panel InformationOrdered By: Shayla Cruz on 965443-Gkzirjd Vitamin D Total21.5 ng/mLKettering Health HamiltonComment on above:<20 ng/mL Vit D -<30 ng/mL Vit D alxtpshlfnkg77-351 ng/mL Vit D sufficient>100 ng/mL Potential Toxicity Eosinophils # (Auto)0.2 10 3/uL0.0-0.7FOhioHealthImmature Granulocyte # (Auto)0.02 10 3/uL0.00-0.03[facility] Platelet mean volume Auto (Bld) [Entitic vol]Ordered By: Shayla Cruz on 07-42-7313Ucbvgwwh mean volume (Bld) [Entitic vol]9.0 fLLow9.5-13.5FOhioHealthPlatelets Auto (Bld) [#/Vol]Ordered By: Shaylaterence Cruz on 23-23-2163Ddkifuxzj (Bld) [#/Vol]367 10 3/aP765-915ZsthxnrswKettering Health HamiltonRBC Auto (Bld) [#/Vol]Ordered By: Shayla Cruz on 53-52-7394ODC (Bld) [#/Vol]5.42 10 6/uLHigh4.20-5.40Adena Health Systemerum or plasma anion gap determinationOrdered By: Shayla Cruz on 82-18-4463Hxjea gap [Moles/Vol]15.4 mmol/LFOhioHealthOffice Visiton 10-10-2024 Follow-up [id number] [place] 1980 F Date Provider Department Center 10/10/2024 Cristela-DIANNA JACKSON CARD [facility] Family History Problem Relation Age of Onset Heart attack Mother Diabetes Mother Heart attack Father Family Status - Relation Status Age at Mother Father Level of Service:53812 [place] OFFICE/OUTPATIENT ESTABLISHED MOD MDM 30 [facility] CenterCBC AND AUTO DIFFon 26-12-1745BBGWQBPP BASOPHIL0.0 X10E9/LNormal0.0-0.2[facility] Medical CenterComment on above: Performed By: #### CBCA, CMP, 98962-9, 76118-1 #### [facility] ([id number]) [address] [place] [address], FIRST FLOOR [place], [place] [address]YTQQBMFW PARSOSGNQI66.6 X10E9/LHigh1.5-6.6[facility] Medical CenterComment on above:Performed By: #### CBCTiffanie, CMP, , 28199-0 #### [facility] ([id number]) [address] [place] [address] 36217Wbvscuehg/100 WBC (Bld)0.3 %NormalTuscarawas Hospital Comment on above:Performed By: #### [facility], , 81925-8 #### [facility] ([id number]) [address] [place] [address] 11395Cqlpronimbi (Bld) [#/Vol]0.2 10*3/uLNormal0.0-0.4T[facility]carawas HospitalComment on above:Performed By: #### CYNDEE, CMP, , 26318-5 #### [facility] ([id number]) [address] [place] [address] 95343Sklbrycetki/100 WBC (Bld)1.2 %NormalTuscarawas Hospital Comment on above:Performed By: #### CARLOS A COTTER, , 94088-4 #### [facility] ([id number]) [address] [place] [address] 38934Ogfqnnqtsza distribution width (RBC) [Ratio]13.4 %Normal 11.5-15.0Tuscarawas HospitalComment on above:Performed By: #### CBCTiffanie, CMP, , 88957-8 #### [facility] ([id number]) [address] [place] [address] 97370Beaohcmdwk (Bld) [Volume fraction]48.0 %Agol28-58HovDpcnrlChristus Spohn Hospital AliceComment on above:Performed By: #### CBCTiffanie, CMP, , 84803-4 #### [facility] ([id number]) [address] [place] [address] 81192Fvetcuxqlv (Bld) [Mass/Vol]16.4 g/qTEbmy55.7-15.5PSCCI Hospital LimaComment on above:Performed By: #### CYNDEE, CMP, , 50799-7 #### [facility] ([id number]) [address] [place] [address] 68991Rexxqeescbi (Bld) [#/Vol]2.4 10*3/uLNormal1.0-3.5PSCCI Hospital LimaComment on above:Performed By: #### CYNDEE, CMP, , 74762-4 #### [facility] ([id number]) [address] [place] [address] 55615Vxzvhbwpphl/100 WBC (Bld)17.2 %NormalTuscarawas Hospital Comment on above:Performed By: #### CYNDEE, CMP, , 45327-6 #### [facility] ([id number]) [address] [place] [address] 08408DWM (RBC) [Entitic mass]30.0 qpBoarcs97-51WctUqjzyhChristus Spohn Hospital AliceComment on above:Performed By: #### CYNDEE, CMP, , 60694-3 #### [facility] ([id number]) [address] [place] [address] 22977HWQD (RBC) [Mass/Vol]34.1 g/fASaglwh68-02ApxLpkwqzChristus Spohn Hospital AliceComment on above:Performed By: #### CBCTiffanie, CMP, , 63976-5 #### [facility] ([id number]) [address] [place] [address] 50345GTZ (RBC) [Entitic vol]88 rZTdpops13-127CjzVslbnr [facility]remont HospitalComment on above:Performed By: #### CBCTiffanie, CMP, , 38394-6 #### [facility] ([id number]) [address] [place] [address] 92588Ouuqcjqpy (Bld) [#/Vol]1.0 10*3/uLHigh0-0.9T[facility]carawas HospitalComment on above:Performed By: #### CBCA, CMP, 31085-4, 69320-3 #### [facility] ([id number]) [address] [place] [address] 63310Jgdasrkal/100 WBC (Bld)6.9 %NormalTuscarawas Hospital Comment on above:Performed By: #### CBCA, CMP, , 76923-7 #### [facility] ([id number]) [address] [place] [address] 02421Fvxenwtkkeb/100 WBC (Bld)74.4 %NormalTuscarawas Hospital Comment on above:Performed By: #### CBCA, CMP, , 36281-5 #### [facility] ([id number]) [address] [place] [address] 24237Wdqjwrbx mean volume (Bld) [Entitic vol]7.5 fLNormal7-12 [facility] HospitalComment on above:Performed By: #### CBCA, CMP, , 83112-1 #### [facility] ([id number]) [address] [place] [address] 46424Jbapirgbd (Bld) [#/Vol]324 10*3/pOCqlrcb430-468DdhSfdoyrTuscarawas HospitalComment on above:Performed By: #### CBCA, CMP, , 90956-3 #### [facility] ([id number]) [address] [place] [address] 93765YMK COUNT5.46 X10E12/LHigh3.80-5.20[facility] Comment on above:Performed By: #### CBCA, CMP, , 38749-4 #### [facility] ([id number]) [address] [place] [address] 10775GBD (Bld) [#/Vol]14.3 10*3/uLHigh4.0-11.0T[facility]carawas HospitalComment on above:Performed By: #### CARLOS A COTTER, , 39400-9 #### [facility] ([id number]) [address] [place] [address] 88579CEPZWLBNKXTAM METABOLIC PANELon 79-20-3911Fuicouj [Mass/Vol]4.1 g/dLNormal3.2-5.3PSCCI Hospital LimaComment on above:Performed By: #### CARLOS A COTTER, , 68918-1 #### [facility] ([id number]) [address] [place] [address] [place] [address]RDE [Catalytic activity/Vol]65 U/FBjuhkf94-564BanNigmmuChristus Spohn Hospital AliceComment on above:Performed By: #### CARLOS A COTTER, , 67988-3 #### [facility] ([id number]) [address] [place] [address] 62139VPG [Catalytic activity/Vol]24 U/LNormal0-31PSCCI Hospital LimaComment on above:Performed By: #### CARLOS A COTTER, , 44444-7 #### [facility] ([id number]) [address] [place] [address], [place] [address]Xrjht gap [Moles/Vol]9 mmol/LNormal5-15ProChristus Spohn Hospital AliceComment on above:Performed By: #### CARLOS A COTTER, , 99561-9 #### [facility] ([id number]) [address] [place] [address] [place] [address]JBF [Catalytic activity/Vol]17 U/LNormal0-41ProChristus Spohn Hospital AliceComment on above:Performed By: #### CARLOS A COTTER, , 08586-7 #### [facility] ([id number]) [address] [place] [address] 11447Ephbrlvis [Mass/Vol]0.7 mg/dLNormal0.3-1.2PSCCI Hospital LimaComment on above:Performed By: #### CARLOS A COTTER, , 75135-8 #### [facility] ([id number]) [address] [place] [address] 07001Mzcfjzk [Mass/Vol]8.9 mg/dLNormal8.5-10.5PSCCI Hospital LimaComment on above:Performed By: #### CARLOS A COTTER, , 20085-7 #### [facility] ([id number]) [address] [place] [address], [place] [address]Nqsyndmw [Moles/Vol]104 mmol/HKavfsx48-721EcqPgdurlChristus Spohn Hospital AliceComment on above:Performed By: #### CARLOS A COTTER, , 20385-6 #### [facility] ([id number]) [address] [place] [address] 44439PC7 [Moles/Vol]22 mmol/VBivolr77-13ZtgMemfpcSCCI Hospital Lima Comment on above:Performed By: #### CARLOS A COTTER, , 07825-2 #### [facility] ([id number]) [address] [place] [address] 12779Utgxwssyit [Mass/Vol]0.75 mg/dLNormal0.40-1.00ProChristus Spohn Hospital AliceComment on above:Result Comment: METHOD TRACEABLE TO IDMS STANDARD Performed By: #### CARLOS A COTTER, , 71601-8 #### [facility] ([id number]) [address] [place] [address] 13470eOMF (CKD-EPI) NON-RACE DEPENDENT>90Normal>59ProChristus Spohn Hospital AliceComment on above:Result Comment: Reported eGFR is based on the CKD-EPI 1 equation that does not use a race coefficient.Performed By: #### CARLOS A COTTER, 69567-0, 10068-7 #### [facility] ([id number]) [address] [place] [address] 56302Bawddjh [Mass/Vol]105 mg/hEAyci64-86PksRnugqmTuscarawas Hospital Comment on above:Performed By: #### CARLOS A COTTER, , 59189-3 #### [facility] ([id number]) [address] [place] [address] 76516Hxuxtqmdi [Moles/Vol]3.6 mmol/LNormal3.5-5.0ProChristus Spohn Hospital AliceComment on above:Performed By: #### CARLOS A COTTER, , 81947-2 #### [facility] ([id number]) [address] [place] [address], [place] [address]Bujcndm [Mass/Vol]7.5 g/dLNormal6.0-8.0ProChristus Spohn Hospital AliceComment on above:Performed By: #### CARLOS A COTTER, 84985-6, 20967-8 #### [facility] ([id number]) [address] [place] [address] 77477Jaoivb [Moles/Vol]135 mmol/DFjqwgq965-328BklRhqanj [facility] HospitalComment on above:Performed By: #### CARLOS A COTTER, 53413-8, 65872-1 #### [facility] ([id number]) [address] [place] [address] 24159Jpel nitrogen [Mass/Vol]12 mg/dLNormal5-23ProChristus Spohn Hospital AliceComment on above:Performed By: #### CARLOS A COTTER, 24068-4, 10347-5 #### [facility] ([id number]) [address] [place] [address] 18614XS BRAIN WO CONTon 17-26-1396DI BRAIN WO CONTCT BRAIN WO CONT STUDY: [...] Finalized by Darron Hercules on 08/25/2024 9:26 PMNormalProChristus Spohn Hospital AliceMAGNESIUMon 37-67-6057Ymbfiufgq [Mass/Vol]2.0 mg/dLNormal1.8-2.6 [facility] CenterComment on above:Performed By: #### [facility], 91992- 9, 92064-2 #### [facility] ([id number]) [address] [place] [address] 87885Opcrbpts I.cardiac High sensitivity method [Mass/Vol]on HOUR TROP I, HIGH SENSITIVITY3 ng/LNormal<16ProMercy Health Defiance Hospitalca Sonora Regional Medical CenterComment on above:Performed By: #### 81855-1 #### [facility] ([id number]) [address] [place] [address] 20915AOQQACAB I, HIGH SENSITIVITY3 ng/LNormal<16[facility] Medical CenterComment on above:Performed By: #### CBCA, CMP, 95579-8, 72804-4 #### [facility] ([id number]) [address] [facility], FIRST FLOOR [place], [place] [address]Likbxaeng Auto (Bld) [#/Vol]on 02-35-4777Ppiapbahh (Bld) [#/Vol]0.1 10 3/uL0.0-0.1FOhioHealthBasophils/100 WBC Auto (Bld)on 81-60-2936Foosnuqds/100 WBC (Bld)0.7 %0.2-2.0[facility] HamiltonEosinophils/100 WBC Auto (Bld)on 84-06-1867Yhbhhfzeylv/100 WBC (Bld)3.6 % 0.9-7.0[facility] HamiltonErythrocyte distribution width Auto (RBC) [Ratio]on 34-78-9358Lmvhwzqejxl distribution width (RBC) [Ratio]18.3 % 11.0-15.0[facility] HamiltonEstimated glomerular filtration rate (GFR) non- Americanon 00-00-4168WEN/1.73 sq M.predicted among non-blacks MDRD (S/P/Bld) [Vol rate/Area]mL/min/{1.73_m2}>=60[facility] HamiltonGlobulin Calc (S) [Mass/Vol]on 87-90-5631Ycllpwme (S) [Mass/Vol]4.3 g/dL [facility] HamiltonHematocrit Auto (Bld) [Volume fraction]on 37-43-2354Ufjsduifss (Bld) [Volume fraction]43.0 %36.0-48.0[facility] HamiltonHemoglobin [Mass/volume] in Bloodon 70-34-4938Fbqpobvddv (Bld) [Mass/Vol]14.1 g/dL12.0-16.0[facility] HamiltonIron binding capacity [Mass/volume] in Serum or Plasmaon 42-11-7276Blwq binding capacity [Mass/Vol]337.0 ug/dL250.0-450.0[facility] HamiltonIron saturation [Mass Fraction] in Serum or Plasmaon 20-04-5138Dzmq saturation [Mass fraction] 25.5 %[facility] HamiltonLaboratory - Chemistry and Chemistry - challengeon 27-58-0977Hrnsyvm [Mass/Vol]3.9 g/dL3.4-5.0[facility] HamiltonALP [Catalytic activity/Vol]102 U/S93-386PidnwetczKettering Health HamiltonALT [Catalytic activity/Vol]20 U/V10-85ZaalinwjmKettering Health HamiltonAST [Catalytic activity/Vol]10 U/S86-46RgslghwqfKettering Health Hamilton Bilirubin [Mass/Vol]0.1 mg/dL0.2-1.0[facility] HamiltonCalcium [Mass/Vol]8.9 mg/dL8.5-10.1FOhioHealthChloride [Moles/Vol] 103 mmol/J74-544XpdxutescKettering Health HamiltonCO2 [Moles/Vol]27.2 mmol/L 21.0-32.0[facility] HamiltonCobalamin (Vitamin B12) [Mass/Vol] 384.0 pg/mL193.0-986.0[facility] HamiltonCreatinine [Mass/Vol]0.62 mg/dL0.55-1.02[facility] HamiltonFerritin [Mass/Vol]819.0 ng/mL 8.0-252.0[facility] HamiltonFree T4 [Mass/Vol]0.78 ng/dL0.76-1.46 [facility] HamiltonGFR/1.73 sq M.predicted MDRD (S/P/Bld) [Vol rate/Area]mL/min/{1.73_m2}>=60[facility] HamiltonGlucose [Mass/Vol]82 mg/gN25-843RejtvoaqwKettering Health HamiltonIron [Mass/Vol]86.0 ug/dL50.0-170.0[facility] HamiltonPotassium [Moles/Vol]4.0 mmol/L 3.5-5.1FOhioHealthProtein [Mass/Vol]8.2 g/dL6.4-8.2 [facility]odium [Moles/Vol]138 mmol/B026-878LzodpqpnpKettering Health HamiltonTSH Qn1.982 m[IU]/L0.358-3.740[facility] HamiltonUrea nitrogen [Mass/Vol]8.0 mg/dL7.0-18.0[facility] Urea nitrogen/Creatinine [Mass ratio]12.9 mg/mgKettering Health Hamilton Laboratory - Hematology and Cell countson 34-97-7930Ksqifckj granulocytes/100 WBC (Bld)0.2 %0.0-0.5FOhioHealthLeukocytes [#/volume] corrected for nucleated erythrocytes in Blood by Automated counon 07-05-2356GZX corrected for nucl RBC Auto (Bld) [#/Vol]9.7 10 3/uL4.0-11.0[facility] HamiltonLymphocytes Auto (Bld) [#/Vol]on 24-57-9924Mpbcxogbbvb (Bld) [#/Vol]2.7 10 3/uL1.2-3.8[facility] HamiltonLymphocytes/100 WBC Auto (Bld)on 96-97-1969Tcfznpdkfrr/100 WBC (Bld)27.3 %20.5-60.0[facility] HospitalH Auto (RBC) [Entitic mass]on 74-91-8794KLJ (RBC) [Entitic mass]27.4 pg26.7-34.0[facility] HamiltonMCHC Auto (RBC) [Mass/Vol]on 34-81-4385NXEK (RBC) [Mass/Vol]32.8 g/dL29.9-35.2FOhioHealthMCV Auto (RBC) [Entitic vol]on 94-90-4216XTI (RBC) [Entitic vol] 83.7 fL81.0-99.0[facility] HamiltonMonocytes Auto (Bld) [#/Vol]on 97-99-2710Gqduruaol (Bld) [#/Vol]0.8 10 3/uL0.3-0.8[facility] HamiltonMonocytes/100 WBC Auto (Bld)on 48-45-6330Wsncofoyp/100 WBC (Bld)8.2 % 1.7-12.0[facility] HamiltonNeutrophils Auto (Bld) [#/Vol]on 92-45-3600Cksnkrxzuyw (Bld) [#/Vol]5.8 10 3/uL1.4-6.5FOhioHealthNeutrophils/100 WBC Auto (Bld)on 78-18-8637Ssjpnfvbarf/100 WBC (Bld)60.0 % 43.0-75.0[facility] HamiltonNo Panel Informationon - Hydroxy Vitamin D Total8.7 ng/mLKettering Health HamiltonComment on above:<20 ng/mL Vit D lcpjytcbn96-<30 ng/mL Vit D msgscyhwfyml69-909 ng/mL Vit D sufficient>100 ng/mL Potential ToxicityEosinophils # (Auto)0.4 10 3/uL0.0-0.7 [facility] HamiltonFolate9.70 ng/mL8.60-58.90[facility] HamiltonImmature Granulocyte # (Auto)0.02 10 3/uL0.00-0.03[facility] HamiltonPlatelet mean volume Auto (Bld) [Entitic vol]on 40-29-9761Zcmwhvdg mean volume (Bld) [Entitic vol]8.5 fL9.5-13.5FOhioHealthPlatelets Auto (Bld) [#/Vol]on 17-55-4282Gwespkmac (Bld) [#/Vol]383 10 3/qH515-970ZclfqqapmKettering Health HamiltonRBC Auto (Bld) [#/Vol] on 58-36-3663ROB (Bld) [#/Vol]5.14 10 6/uL4.20-5.40[facility]a Health Systemerum or plasma albumin/globulin mass ratioon 88-07-1251Dkbzafe/Globulin [Mass ratio]0.9 {ratio}[facility]dena Health Systemerum or plasma anion gap determinationon 77-86-7785Gtmza gap [Moles/Vol]11.8 mmol/LFOhioHealthBasophils Auto (Bld) [#/Vol]on 61-91-3265Torpnsvrt (Bld) [#/Vol] 0.1 10 3/uL0.0-0.1FOhioHealthBasophils/100 WBC Auto (Bld) on 69-47-6107Zbcawoqbs/100 WBC (Bld)0.6 %0.2-2.0[facility] HamiltonEosinophils/100 WBC Auto (Bld)on 15-52-4585Nxdwgdmepub/100 WBC (Bld)2.5 % 0.9-7.0[facility] HamiltonErythrocyte distribution width Auto (RBC) [Ratio]on 09-96-8942Zdclrbmsbof distribution width (RBC) [Ratio]14.9 % 11.0-15.0[facility] HamiltonHematocrit Auto (Bld) [Volume fraction]on 44-02-7620Gwomnsguri (Bld) [Volume fraction]44.7 %36.0-48.0[facility] HamiltonHemoglobin [Mass/volume] in Bloodon 37-89-9849Fkgudgsdvr (Bld) [Mass/Vol]14.0 g/dL12.0-16.0[facility] HamiltonIron binding capacity [Mass/volume] in Serum or Plasmaon 25-19-7058Bxfr binding capacity [Mass/Vol]490.0 ug/dL250.0-450.0[facility] HamiltonIron saturation [Mass Fraction] in Serum or Plasmaon 89-14-6843Ezjy saturation [Mass fraction] 5.9 %[facility] HamiltonLaboratory - Chemistry and Chemistry - challengeon 95-67-4357Uupthpfg [Mass/Vol]8.0 ng/mL8.0-252.0[facility] HamiltonIron [Mass/Vol]29.0 ug/dL50.0-170.0[facility] HamiltonLaboratory - Hematology and Cell countson 73-39-3928BXB (Bld) [Velocity]55 mm/h<=20[facility] HamiltonImmature granulocytes/100 WBC (Bld)0.3 %0.0-0.5FOhioHealthLeukocytes [#/volume] corrected for nucleated erythrocytes in Blood by Automated counon 65-40-8910CNF corrected for nucl RBC Auto (Bld) [#/Vol]13.4 10 3/uL4.0-11.0[facility] Lymphocytes Auto (Bld) [#/Vol]on 76-80-4005Xrqokhlaotu (Bld) [#/Vol]2.6 10 3/uL 1.2-3.8[facility] HamiltonLymphocytes/100 WBC Auto (Bld)on 00-51-4297Sdbumulczsw/100 WBC (Bld)19.3 %20.5-60.0[facility] HospitalH Auto (RBC) [Entitic mass]on 81-66-6022JKO (RBC) [Entitic mass]26.1 pg 26.7-34.0[facility] HamiltonMCHC Auto (RBC) [Mass/Vol]on 07-59-5642YZPB (RBC) [Mass/Vol]31.3 g/dL29.9-35.2FOhioHealthMCV Auto (RBC) [Entitic vol]on 79-79-8326FCW (RBC) [Entitic vol]83.2 fL 81.0-99.0[facility] HamiltonMonocytes Auto (Bld) [#/Vol]on 01-19-3852Odthpndun (Bld) [#/Vol]0.7 10 3/uL0.3-0.8[facility] HamiltonMonocytes/100 WBC Auto (Bld)on 16-27-3148Sqzkaqoxp/100 WBC (Bld)5.4 % 1.7-12.0[facility] HamiltonNeutrophils Auto (Bld) [#/Vol]on 09-17-2926Atobwhufsqd (Bld) [#/Vol]9.6 10 3/uL1.4-6.5FOhioHealthNeutrophils/100 WBC Auto (Bld)on 64-40-7841Dbsguykdoly/100 WBC (Bld)71.9 % 43.0-75.0[facility] HamiltonNo Panel Informationon 36-44-9555K- Reactive Protein, Quantitative<0.50 mg/dL<=0.50[facility] Eosinophils # (Auto)0.3 10 3/uL0.0-0.7FOhioHealthImmature Granulocyte # (Auto)0.04 10 3/uL0.00-0.03[facility] Platelet mean volume Auto (Bld) [Entitic vol]on 52-07-8275Lshjpcsu mean volume (Bld) [Entitic vol]8.8 fL9.5-13.5FOhioHealthPlatelets Auto (Bld) [#/Vol]on 91-69-4311Srcvzgtws (Bld) [#/Vol]576 10 3/jS969-073HuswqdwrzKettering Health HamiltonRBC Auto (Bld) [#/Vol]on 86-11-4421YZM (Bld) [#/Vol]5.37 10 6/uL4.20-5.40[facility] HamiltonOffice Visiton 10-24-2023 Follow-up [id number] [place] 1980 F Date Provider Department Center 10/24/2023 Cristela-DIANNA JACKSON [facility] Family History Problem Relation Age of Onset Heart attack Mother Diabetes Mother Heart attack Father Family Status - Relation Status Age at Mother Father Level of Service:47814 GA OFFICE/OUTPATIENT ESTABLISHED MOD MDM 30 [facility] CenterCBC AUTO DIFFon 69-51-6808GJKG #0.1 103/ul Normal0.0-0.1[facility] Shelby HospitalComment on above:Performed By: #### CBC #### [facility] [address] [place] [address] Dr. uQincy Connersophils/100 WBC (Bld)0.5 %Normal0.2-2.0[facility] Comment on above:Performed By: #### CBC #### [facility] [address] [address] [address] Quincy Boone #0.4 103/ulNormal0.0-0.7The [facility] HospitalComment on above: Performed By: #### CBC #### [facility] [address] [place] [address] Dr. Yilan ChangEosinophils/100 WBC (Bld)4.1 %Normal0.9-7.0[facility] Comment on above:Performed By: #### CBC #### [facility] [address] [place] [address] Dr. Quincy Cruzrythrocyte distribution width (RBC) [Ratio]15.9 %Critically high 11.0-15.0The [facility] HospitalComment on above:Performed By: #### CBC #### [facility] [address] [place] [address] Dr. Quincy AlanizHematocrit (Bld) [Volume fraction]39.2 %Medmss89.0-48.0The [facility] HospitalComment on above:Performed By: #### CBC #### [facility] [address] [place] [address] Dr. Quincy AlanizHemoglobin (Bld) [Mass/Vol]12.4 g/cOEplwni45.0-16.0The [facility] HospitalComment on above:Performed By: #### CBC #### [facility] [address] [place] [address] Dr. Quincy Flores #0.03 10e3/ulNormal0.00-0.03The [facility] HospitalComment on above:Performed By: #### CBC #### [facility] [address] [place] [address] Dr. Quincy AlanizIG %0.3 %Normal0.0-0.5The [facility] HospitalComment on above: Performed By: #### CBC #### [facility] [address] [place] [address] Dr. Quincy SullivanMPH #2.9 103/ulNormal1.2-3.8The [facility] HospitalComment on above:Performed By: #### CBC #### [facility] [address] [place] [address] Dr. Quincy Sullivanmphocytes/100 WBC (Bld)30.3 %Viuwpw98.5-60.0The [facility] HospitalComment on above:Performed By: #### CBC #### [facility] [address] [address] [address] Quincy Garner DIFF REQNONormalThe [facility] HospitalComment on above: Performed By: #### CBC #### [facility] [address] [place] [address] Dr. Quincy Mcmullen (RBC) [Entitic mass]25.6 pgCritically low26.7-34.0The [facility] HospitalComment on above:Performed By: #### CBC #### [facility] [address] [place] [address] Dr. Quincy Mcmullen (RBC) [Mass/Vol]31.6 g/mWBaogvg23.9-35.2The [facility] HospitalComment on above:Performed By: #### CBC #### [facility] [address] [place] [address] Dr. Quincy Mcmullen (RBC) [Entitic vol]80.8 fLCritically low81.0-99.0The [facility] HospitalComment on above:Performed By: #### CBC #### [facility] [address] [place] [address] Dr. Quincy Johansen #0.7 103/ulNormal0.3-0.8The [facility] HospitalComment on above:Performed By: #### CBC #### [facility] [address] [place] [address] Dr. Quincy Howellocytes/100 WBC (Bld)7.4 %Normal1.7-12.0[facility] Comment on above:Performed By: #### CBC #### [facility] [address] [place] [address] Dr. Quincy Forman #5.6 103/ulNormal1.4-6.5The [facility] HospitalComment on above:Performed By: #### CBC #### [facility] [address] [place] [address] Dr. Quincy Ledezmautrophils/100 WBC (Bld)57.4 %Rpqzlb35.0-75.0The [facility] HospitalComment on above:Performed By: #### CBC #### [facility] [address] [address] [address] Quincy Floreslet mean volume (Bld) [Entitic vol]8.6 fLCritically low 9.5-13.5The [facility] HospitalComment on above:Performed By: #### CBC #### [facility] [address] [place] [address] Dr. Quincy AlanizPLT481 103/ulCritically giiy466-723Tbv [facility] HospitalComment on above:Performed By: #### CBC #### [facility] [address] [place] [address] Dr. Quincy AlanizRBC4.85 106/ulNormal4.20-5.40The [facility] HospitalComment on above:Performed By: #### CBC #### [facility] [address] [place] [address] Dr. Quincy AlanizWBC9.7 103/ulNormal4.0-11.0The [facility] HospitalComment on above: Performed By: #### CBC #### [facility] [address] [place] [address] Dr. Quincy AlanizFERRITINon 10-30-9818Wbviixfs [Mass/Vol]8.0 ng/mLNormal6.2-137.0 The [facility] HospitalComment on above:Performed By: #### FERR #### [facility] [address] [place] [address] Dr. Quincy Cross AUTO DIFFon 87-97-4951RRUY #0.1 103/ulNormal0.0-0.1The [facility] HospitalComment on above:Performed By: #### CBC #### [facility] [address] [place] [address] Dr. Quincy AlanizBasophils/100 WBC (Bld)0.3 %Normal0.2-2.0[facility] Comment on above:Performed By: #### CBC #### [facility] [address] [place] [address] Dr. Mathew ChangEO #0.4 103/ulNormal0.0-0.7The [facility] HospitalComment on above: Performed By: #### CBC #### [facility] [address] [place] [address] Dr. Quincy Cruzosinophils/100 WBC (Bld)1.7 %Normal0.9-7.0[facility] Comment on above:Performed By: #### CBC #### [facility] [address] [place] [address] Dr. Quincy Cruzrythrocyte distribution width (RBC) [Ratio]15.1 %Critically high 11.0-15.0The [facility] HospitalComment on above:Performed By: #### CBC #### [facility] [address] [place] [address] Dr. Quincy AlanizHematocrit (Bld) [Volume fraction]39.6 %Zdxvau21.0-48.0The [facility] HospitalComment on above:Performed By: #### CBC #### [facility] [address] [place] [address] Dr. Quincy AlanizHemoglobin (Bld) [Mass/Vol]12.8 g/vWPylxdl28.0-16.0The [facility] HospitalComment on above:Performed By: #### CBC #### [facility] [address] [place] [address] Dr. Quincy Flores #0.09 10e3/ulCritically high0.00-0.03[facility] Comment on above:Performed By: #### CBC #### [facility] [address] [place] [address] Dr. Quincy Flores %0.4 %Normal0.0-0.5The [facility] HospitalComment on above: Performed By: #### CBC #### [facility] [address] [place] [address] Dr. Quincy Espinoza #2.4 103/ulNormal1.2-3.8The [facility] HospitalComment on above:Performed By: #### CBC #### [facility] [address] [place] [address] Dr. Quincy Marleyhocytes/100 WBC (Bld)11.5 %Critically low20.5-60.0The [facility] HospitalComment on above:Performed By: #### CBC #### [facility] [address] [place] [address] Dr. Quincy Garner DIFF REQNONormalThe [facility] HospitalComment on above: Performed By: #### CBC #### [facility] [address] [place] [address] Dr. Quincy Mcmullen (RBC) [Entitic mass]25.7 pgCritically low26.7-34.0The [facility] HospitalComment on above:Performed By: #### CBC #### [facility] [address] [place] [address] Dr. Quincy Mcmullen (RBC) [Mass/Vol]32.3 g/yOZgiyop21.9-35.2The [facility] HospitalComment on above:Performed By: #### CBC #### [facility] [address] [place] [address] Dr. Quincy Deutsch (RBC) [Entitic vol]79.4 fLCritically low81.0-99.0[facility] HospitalComment on above:Performed By: #### CBC #### [facility] [address] [place] [address] Dr. Quincy Johansen #1.2 103/ulCritically high0.3-0.8ThMercy Health Lorain Hospital Comment on above:Performed By: #### CBC #### [facility] [address] [place] [address] Dr. Quincy Howellocytes/100 WBC (Bld)5.4 %Normal1.7-12.0[facility] Comment on above:Performed By: #### CBC #### [facility] [address] [place] [address] Dr. Quincy Forman #17.2 103/ulCritically high1.4-6.5ThMercy Health Lorain Hospital Comment on above:Performed By: #### CBC #### [facility] [address] [place] [address] Dr. Quincy Chavesophils/100 WBC (Bld)80.7 %Critically high43.0-75.0The [facility] HospitalComment on above:Performed By: #### CBC #### [facility] [address] [address] [address] Quincy Floreslet mean volume (Bld) [Entitic vol]8.6 fLCritically low 9.5-13.5The [facility] HospitalComment on above:Performed By: #### CBC #### [facility] [address] [address] [address] Quincy BahenaT530 103/ulCritically mutt418-146Emv [facility] HospitalComment on above:Performed By: #### CBC #### [facility] [address] [place] [address] Dr. Quincy AlanizRBC4.99 106/ulNormal4.20-5.40The [facility] HospitalComment on above:Performed By: #### CBC #### [facility] [address] [place] [address] Dr. Quincy AlanizWBC21.3 103/ulCritically high4.0-11.0The [facility] HospitalComment on above:Performed By: #### CBC #### [facility] [address] [place] [address] Dr. Quincy AlanizLIPID PROFILEon 07-14-8096HEGX-HDL RATIO NORMSEE [facility] Galion HospitalComment on above:Result Comment: 3.3 - 4.4 LOW RISK 4.4 - 7.1 AVERAGE RISK 7.1 - 11.0 MODERATE RISK >11.0 HIGH RISKPerformed By: #### CMP, LIPID #### [facility] [address] [place] [address] Dr. Quincy AlanizCholesterol [Mass/Vol]180 mg/dLNormal<=200[facility] Comment on above:Performed By: #### CMP, LIPID #### [facility] [address] [place] [address] Dr. Quincy AlanizCholesterol in HDL [Mass/Vol]29 mg/dLCritically dqz24-13Cnq [facility]ultman Hospitalment on above:Performed By: #### CMP, LIPID #### [facility] [address] [address] [address] Quincy AlanizCholesterol in LDL [Mass/Vol]132.8 mg/dLNoThe [facility]vue HospitalComment on above:Performed By: #### CMP, LIPID #### [facility] [address] [address] [address] Quincy Patten.total/Cholesterol in HDL [Mass ratio]6.2 {ratio} NormalThe [facility] HospitalComhenry ford hospital on above:Performed By: #### CMP, LIPID #### [facility] [address] [place] [address] Dr. Quincy Bejarano NORMAL> or = 60 mg/dl - LOW CARDIOVASCULAR RISK <40 mg/dl - HIGH CARDIOVASCULAR RISKOhioHealth Hardin Memorial Hospital on above:Performed By: #### CMP, LIPID #### [facility] [address] [place] [address] Dr. Quincy Calhoun CALC NORMALSEE BELOWNoThe [facility]vue HospitalComment on above:Result Comment: <100 mg/dl OPTIMAL 100 - 129 mg/dl NEAR OR ABOVE OPTIMAL 130 - 159 mg/dl BORDERLINE HIGH 160 - 189 mg/dl HIGH >190 mg/dl VERY HIGH Performed By: #### CMP, LIPID #### [facility] [address] [place] [address] Dr. Quincy AlanizTriglyceride [Mass/Vol]91 mg/dLNormal<=150[facility] Comment on above:Performed By: #### CMP, LIPID #### [facility] [address] [place] [address] Dr. Quincy NicoleLDL CALC18.2 mg/dLNoThe [facility]vue HospitalComment on above: Performed By: #### CMP, LIPID #### [facility] [address] [place] [address] Dr. Quincy AlanizPRONel 14(COMP METB)on 52-70-9904Qfikbka [Mass/Vol]3.7 g/dLNormal 3.4-5.0The [facility]bir HospitalComment on above:Performed By: #### CMP, LIPID #### [facility] [address] [address] [address] Quincy AlanizAlbumin/Globulin [Mass ratio]0.8 {ratio}NormalThe [facility] HospitalComment on above:Performed By: #### CMP, LIPID #### [facility] [address] [address] [address] Quincy CelestinP [Catalytic activity/Vol]105 U/QNqtduk23-015Etw [facility] HospitalComment on above:Performed By: #### CMP, LIPID #### [facility] [address] [address] [address] Quincy Rich [Catalytic activity/Vol]24 U/TUyaxge32-42Qia [facility] Hospitalment on above:Performed By: #### CMP, LIPID #### [facility] [address] [address] [address] Quincy Esquedaon gap [Moles/Vol]11.1 mmol/LNormalThe [facility] Comment on above:Performed By: #### CMP, LIPID #### [facility] [address] [address] [address] Quincy AlanizAST [Catalytic activity/Vol]14 U/LCritically jmu51-27Xeu [facility] HospitalComment on above:Performed By: #### CMP, LIPID #### [facility] [address] [address] [address] Quincy AlanizBilirubin [Mass/Vol]0.3 mg/dLNormal0.2-1.0[facility] Comment on above:Performed By: #### CMP, LIPID #### [facility] [address] [address] [address] Quincy AlanizCalcium [Mass/Vol]9.2 mg/dLNormal8.5-10.1[facility] Comment on above:Performed By: #### CMP, LIPID #### [facility] [address] [address] [address] Quincy AlanizChloride [Moles/Vol]100 mmol/KWcdtky13-307Qlu [facility] Comment on above:Performed By: #### CMP, LIPID #### [facility] [address] [address] [address] Quincy AlanizCO2 [Moles/Vol]26.8 mmol/QElmzoo99.0-32.0[facility] Comment on above:Performed By: #### CMP, LIPID #### [facility] [address] [address] [address] Quincy AlanizCreatinine [Mass/Vol]0.68 mg/dLNormal0.55-1.02The [facility] HospitalComment on above:Performed By: #### CMP, LIPID #### [facility] [address] [address] [address] Quincy CruzGFR-AF EGYPTIAN>60Normal>=60The [facility] HospitalComment on above:Performed By: #### CMP, LIPID #### [facility] [address] [address] [address] Quincy CruzGFR-NON AF EGYPTIAN>60Normal>=60The [facility] HospitalComment on above:Performed By: #### CMP, LIPID #### [facility] [address] [address] [address] Quincy AlanizGlobulin (S) [Mass/Vol]4.9 g/dLNormalThe [facility] HospitalComment on above:Performed By: #### CMP, LIPID #### [facility] [address] [address] [address] Quincy AlanizGlucose [Mass/Vol]113 mg/dLCritically ydqq86-463Kor [facility] HospitalComment on above:Performed By: #### CMP, LIPID #### [facility] [address] [address] [address] Quincy AlanizPotassium [Moles/Vol]3.9 mmol/LNormal3.5-5.1[facility] Comment on above:Performed By: #### CMP, LIPID #### [facility] [address] [address] [address] Quincy AlanizProtein [Mass/Vol]8.6 g/dLCritically high6.4-8.2The [facility] HospitalComment on above:Performed By: #### CMP, LIPID #### [facility] [address] [place], [place] [address] Dr. Quincy AlanizSodium [Moles/Vol]134 mmol/LCritically kbr242-712Sql [facility] HospitalComment on above:Performed By: #### CMP, LIPID #### [facility] [address] [address] [address] Quincy AlanizUrea nitrogen [Mass/Vol]9.0 mg/dLNormal7.0-18.0The [facility] HospitalComment on above:Performed By: #### CMP, LIPID #### [facility] [address] [address] [address] Quincy Ovalle nitrogen/Creatinine [Mass ratio]13.2 mg/mgNoThe [facility]vue HospitalComment on above:Performed By: #### CMP, LIPID #### [facility] [address] [address] [address] Quincy Gibbs KIDNEYSon 35-27-5289TT KIDNEYSUS KIDNEYS: 12/16/2022 10:00 AM EDT CLINICAL [...] nephrolithiasis without hydronephrosis. Electronically authenticated by: VALERIE GEROGE Date: 2022-12-16 13:08[facility] HospitalBASI METABOLIC PANELon 73-96-0838Tmabtfz5.6 mg/dLNormal 8.6-10.3The Mercy HealthComment on above:Order Comment: No: Do not add to previous drawPerformed By: #### [id number] ####[facility] [place] [address], ODSUkylbscf799 mmol/LNormal 98-107The [facility] HealthComment on above:Order Comment: No: Do not add to previous drawPerformed By: #### [id number] ####[facility] [place] [address], ZIDQG169 mmol/NWcxjca44-11Asp [facility]cy HealthComment on above:Order Comment: No: Do not add to previous drawPerformed By: #### [id number] ####[facility] [place] [address], USACreatinine0.69 mg/dLNormal 0.60-1.20The [facility] HealthComment on above:Order Comment: No: Do not add to previous drawPerformed By: #### [id number] ####[facility] [place] [address].[place] [address], USAeGFR (black) mL/min/{1.73_m2}Normal>60The Mer[facility] HealthComment on above:Order Comment: No: Do not add to previous drawPerformed By: #### [id number] ####[facility] [place] [address].[place] [address], [place] eGFR (non-black)mL/min/{1.73_m2}Normal>60The [facility] Comment on above:Order Comment: No: Do not add to previous drawPerformed By: #### [id number] ####[facility] [place] [address].[place] [address], USAGlucose mass conc95 mg/iSUctbww91-664Gof [facility] HealthComment on above:Order Comment: No: Do not add to previous drawPerformed By: #### [id number] ####[facility] [place] [address].[place] [address], USAPotassium molar conc4.6 mmol/LNormal3.5-5.1The [facility]cy HealthComment on above:Order Comment: No: Do not add to previous draw Performed By: #### [id number] ####[facility] [place] [address], PXXYugaeb146 mmol/MJex512-411Atv [facility] HealthComment on above:Order Comment: No: Do not add to previous draw Performed By: #### [id number] ####[facility] [place] [address], USAUrea tykobcuo16 mg/dLNormal7-25The [facility] HealthComment on above:Order Comment: No: Do not add to previous draw Performed By: #### [id number] ####[facility] [place] [address].[place] [address], [facility] PSYCHIATRIC CENTERCBC W/DIFFon 71-08-9873Sfrtsefoo Auto #/vol (Bld)0.5 % Normal0.0-2.0The [facility]cy HealthComment on above:Order Comment: No: Do not add to previous drawPerformed By: #### [id number] ####[facility] [facility] [place] [address], [facility] PSYCHIATR[facility] CENTEREosinophils/100 leukocytes2.4 %Normal0.0-5.0The Mercy HealthComment on above:Order Comment: No: Do not add to previous drawPerformed By: #### [id number] ####[facility] [place] [address].[place] [address], [place] Erythrocyte distribution width Auto Ratio (RBC)16.8 %Uqzrud83.5-16.9The [facility]cy HealthComment on above:Order Comment: No: Do not add to previous drawPerformed By: #### [id number] ####[facility] [place] [address].[place] [address], [facility] PSYCHIATRIC CENTERErythrocytes (RBC)4.30 mill/mm3 Normal3.50-5.50The Mercy HealthComment on above:Order Comment: No: Do not add to previous drawPerformed By: #### [id number] ####[facility] [place] [address], [facility] PSYCHIATRIC CENTERHematocrit (HCT) 35.3 %Low36.0-48.0The Mercy HealthComment on above:Order Comment: No: Do not add to previous drawPerformed By: #### [id number] ####[facility] [place] [address], [facility] PSYCHIATRIC CENTERHemoglobin mass conc (Bld)11.5 g/dLLow12.0-15.0The Mercy HealthComment on above:Order Comment: No: Do not add to previous drawPerformed By: #### [id number] ####[facility] [facility] [place] [address], [place] Lymphocytes/100 .9 %Veizbe06.0-40.0The Mercy HealthComment on above:Order Comment: No: Do not add to previous drawPerformed By: #### [id number] ####[facility] [facility] [place] [address], XWHKID13.8 yqUlbmwb05.0-32.0The [facility] Comment on above:Order Comment: No: Do not add to previous drawPerformed By: #### [id number] ####[facility] [facility] [place] [address], [facility] PSYCHIATRIC CENTERMCHC mass conc (RBC)32.6 g/cTUixwkd22.0-36.0The [facility]cy HealthComment on above:Order Comment: No: Do not add to previous draw Performed By: #### [id number] ####[facility] [facility] [place] [address], PCVCLC49.2 yPFlpnzv64.0-100.0The Mercy HealthComment on above:Order Comment: No: Do not add to previous draw Performed By: #### [id number] ####[facility] [place] [address], USAMETHODNormal RBC MorphologyNormalThe Mercy HealthComment on above:Order Comment: No: Do not add to previous drawPerformed By: #### [id number] ####[facility] [place] [address], USAMONOS9.3 %High2-8The Mercy HealthComment on above:Order Comment: No: Do not add to previous draw Performed By: #### [id number] ####[facility] [place] [address], USANeutrophils/100 wasptstrou62.9 %Crenot94-98Yxu Mercy HealthComment on above:Order Comment: No: Do not add to previous drawPerformed By: #### [id number] ####[facility] [place] [address], USAPLAT FQK431 Thou/rv6Xnwcne780-201 The Mercy HealthComment on above:Order Comment: No: Do not add to previous drawPerformed By: #### [id number] ####[facility] [place] [address], USAWBC (Leukocytes)7.2 Thou/dy5Iumnro8.0-10.0The Mercy HealthComment on above: Order Comment: No: Do not add to previous drawPerformed By: #### [id number] ####[facility] [place] [address], [place] Cardiovascular Lab Reporton 09-36-1123Ubfwpaqiuzdgxd Lab ReportUnUK Healthcare Patient Name: [facility] MR #: [id number] Physician: Dianna Jackson,Department of M.D.Medicine Service Date: 05/25/2017Division of Birthdate: 1980Cardiology Room #: 3AB [id number] CardiovascularServicesUnBrian V[place] [address] [facility], [place] [address]Yfzdw Fax Cardiovascular Laboratory ReportFINAL IMPRESSIONS:1. Successful balloon [...] with Dr. Mena or myself in the [facility] in the next 3-4 weeks.4. Follow up with Dr. Pretty as scheduled.PROCEDURES:1. Catheter placement in the abdominal aorta.2. Abdominal aortography.3. Bilateral selective renal angiography.4. Balloon angioplasty of the right renal artery.5. Placement of a 6-[place] MynxGrip closure device.METHODS: After risks, benefits, and alternatives were explained, writteninformed consent was obtained. The patient was prepped and draped in theusual sterile fashion over both groins. Using 1% lidocaine solution localinfiltration, anesthesia was achieved. Using a modified Seldingertechnique, access to the right common femoral artery was obtained uti [employer] micropuncture kit. A 5-[place] 11-cm sheath was inserted withoutdifficulty. Baseline femoralangiography was performed.A 5-[place] Uni- Flush catheter was advanced over a J-wire and positioned inthe abdominal aorta. Abdominal aortography was performed under digitalsubtraction.A 5-[place] JR4 roxie gnostic catheter was used for bilateral renalangiography. After reviewing the images, it was elected to proceed with aninterventional procedure.The 5-[place] sheath was upsized to a 6-[place] 11-cm sheath. A 6-[place] IMcatheter was advanced over a J-wire and [...] esseltrauma, or thrombosis. The catheter was removed.A 6-[place] MynxGrip closure device was deployed per protocol, achievingoptimal hemostasis. Overall, the patient tolerated the procedure well.Therewere no overt complications. [facility] condition.FINDINGS: HEMODYNAMICS: AO [...] 12:10 P Dianna Jackson M.D.Date Dict: 05/25/2017/02:08 Taho/Dianna Jackson M.D.Date Trans: 05/26/2017 05:38 A/Markel_JN:[id number]: Taya Pretty M.D. [address] [place] [address] Sima Mena M.D. [address] [id number] [facility] [address] [facility] [place] Vital Signs Date TimeVital SignValuePerforming DruzzwafdMrhgppgv97-52-8671 10:01-0400Body qexoai612.94 cmTaya Pretty MD Work Phone: [facility]09-19-2025 10:01-0400 Body mass index (BMI) [Ratio]27.9 kg/g5SlwljcTaya Pretty MD Work Phone: [facility]09-19-2025 10:01-0400 Body qycvhz72.13 kgTaya Pretty MD Work Phone: [facility]09-19-2025 10:01-0400 Diastolic blood ppxfujzn84 mm[Hg]Taya Pretty MD Work Phone: [facility]09-19-2025 10:01-0400 Heart rate83 /Rob Pretty MD Work Phone: [facility]09-19-2025 10:01-0400 Systolic blood uuaufvjr479 mm[Hg]Taya Pretty MD Work Phone: [facility]05-21-2024 15:03-0400 Body .94 cmK[facility]tering Health [facility]05-21-2024 15:03-0400Body mass index (BMI) [Ratio]23.8 kg/p0YydsldgoxKettering Health [facility]05-21-2024 15:03-0400Body signbb23.15 kgK[facility]tering Health [facility]05-21-2024 15:03-0400Diastolic blood xylwhdfq137 mm[Hg][facility] 01-24-2024 15:03-0400Heart rate79 /[facility] 01-24-2024 15:03-0400Systolic blood vsmuvpjx518 mm[Hg][facility]05-01-2023 15:45-0400Body .94 cmTaya Pretty Other [email or web address] Other 05-01-2023 15:45-0400Body mass index (BMI) [Ratio] 25.13 kg/t3RqyoqzTaya Pretty Other [employer] Other 05-01-2023 15:45-0400Body pvzmed44.33 kgTaya Pretty Other [employer] Other 05-01-2023 15:45-0400Diastolic blood fcgoylcs11 mm[Hg] Taya Pretty Other [employer] Other 05-01-2023 15:45-8866IhO5% (BldA) [Mass fraction]97 % Taya Pretty Other [employer] Other 05-01-2023 15:45-0400Systolic blood wchjubbz127 mm[Hg] Taya Pretty Other [employer] Other Encounters Encounter DateEncounter TypeCare ProviderFacilityStart: 05-24-2025 End: 80-29-2091hntfgkqfajBfeulz E Braun MD Work Phone: [facility] Work Phone: Start: 05-24-2025 End: 43-40-2103Pbzxnok encounter procedureTaya Pretty MD-[facility] Work Phone: Start: 05-24-2025 End: 38-77-8066Zidcxsb encounter statusTaya Pretty MDAdena Health Systemtart: 04-31-4521Hct-patient / Non-visitApscott Cruz MD-[facility] Professional [employer] Work Phone: Start: 10-10-2024 End: 21-94-8125nccukzxlcrMZUG [facility] Hospitaltart: 08-25-2024 End: 28-81-0659Fypcsxutx department patient visitMARCIA Tanesha OlsonMedica Shasta Regional Medical Centertart: 03-06-2024 End: 79-02-3730chdsheqejtWWKYBO JANCristhian AvailableStart: 01-24-2024 End: 43-66-0904rearbhecgaYlkqluvlpRegency Hospital Company Work Phone: Start: 01-24-2024 End: 79-73-0142Wohgggt encounter procedureUnc Health [facility] Work Phone: Start: 50-40-5067Rqt-patient / Non-visitUnc Health Rockingham [facility] Co Work Phone: Start: 44-83-9968Djg-patient / Non-visitFircumberland hospital Physician Group-[facility] Work Phone: Start: 10-24-2023 End: 08-62-2054wvgidknxbuUVISMary Rutan Hospitaltart: 10-06-2023 End: 14-73-4904kvnjdxjxqlOsfryd Pretty Other [employer] Other Start: 58-20-6954Ykoacboms encounterMarcia SukhwinderClermont County Hospitaltart: 01-07-2023 End: 83-71-1762burdpjulzoXzzhci Pretty Other [employer] Other Start: 41-24-6115Pzvkxcryr encounterMarcia [facility] Hospitaltart: 01-05-2023 End: 18-81-5050pxqvqmbgzoJsqpnd Pretty Other [employer] Other Start: 30-07-3472Jrswesrvi encounterMarcia St[facility] Hospitaltart: 01-03-2023 End: 96-33-0661ukwwfmwttiCY TAYA Valderrama [employer] Other Start: 26-99-9111Gotzkf outpatient visit 15 minutes Taya Fortune [facility]: 12-16-2022 End: 46-66-7728pfzkvsytjjAE TAYA Tanesha SUKHWINDERFacility:H2Ejysw: 05-25-2017 End: 25-62-3217VtsfibttxiRYUB A ELTAHAWYFacility:[facility]ITALtart: 05-11-2017 End: 98-15-9087PhatxwuycrCVPUYIO PHYSICIANFacility:[facility] Plan of Treatment DateCare ActivityDetailAuthorMG Breast - bilateral [facility]eningTr[facility] Immunizations Immunization DateImmunizationNotesCare YjcoyaufDkhnqjdx94-15-9433iqwzpqh toxoid, reduced diphtheria toxoid, and acellular pertussis vaccine, adsorbedMarcia Sukhwinder Other [facility]07-16-2017diphtheria, tetanus toxoids and acellular pertussis vaccine, unspecified formulationMarcia Sukhwinder Other [facility] Payers DatePayer CategoryPayerPolicy [id number] Health [id number] [id number] [id number] [id number] UnknownUnknownOther1 ([id number] Social History DateTypeDetailFacilityUnknown if ever smokedNoCo-Work Other Sex Assigned At BirthSex Assigned At BirthNosaint louis university [facility] center [email or web address] Other Start: 28-20-4404Yhneoqk smoking status NHISSmoker (finding)[facility] Systemtart: 45-61-1903Ohb Assigned At KarlAdena Health Systemtart: 00-35-3474Cpusxhb smoking status NHISSmokes tobacco daily (finding)[facility] Health SystemexFemale (finding)[facility] HamiltonNEGATED: Highlighted [facility] Progress note 10-10-2024 Note Date & MtqvDldaXgstbmnw82-42-3[facility] Chief Complaint: [...] with Dr. Mena or myself in the [facility] in the next 3-4 weeks. 4. Follow up with Dr. Pretty as scheduled. PROCEDURES: 1. Catheter placement in the abdominal aorta. 2. Abdominal aortography. 3. Bilateral selective renal angiography. 4. Balloon angioplasty of the right renal artery. 5. Placement of a 6-[place] MynxGrip closure device. Echocardiogram 10/28/2023: Normal ventricular systolic function. LVEF is 65%. 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 Mena or myself in the [facility] in the next 3-4 weeks. 4. Follow up with Dr. Pretty as scheduled. PROCEDURES: 1. Catheter placement in the abdominal aorta. 2. Abdominal aortography. 3. Bilateral selective renal angiography. 4. Balloon angioplasty of the right renal artery. 5. Placement of a 6-[place] MynxGrip closure device. Assessment: Fibromuscular dysplasia of [...] Dianna Jackson MD, MPH (more content not included)...[facility] Evaluation note 10-06-2023 Note Date & DckgTdhtBihysglm70-33-2413 Evaluation note* Encounter Date Diagnosis Assessment Notes Treatment Notes Treatment Clinical Notes Oct, Leukocytosis, unspecified type ( ICD-10 - D72.829) Oct,Iron deficiency anemia, unspecified iron deficiency anemia type (ICD-10 - D50.9) [employer] Other Evaluation note 01-03-2023 Note Date & IpjmZnvlXbdvteov46-83-0494 Evaluation note* Encounter Date Diagnosis Assessment Notes Treatment Notes Treatment Clinical Notes January, Leukocytosis, unspecified type ( ICD-10 - D72.829) Handwrote lab order to repeat CBC and ferritin. If referral needed, pt chooses the [facility] physician at the [facility]. January,Fatigue, unspecified type (ICD-10 - R53.83)Denies poor sleep problems or other issues. Reviewed labs, meds and d/w [place]. [employer] [facility] Other Evaluation note Note Date & TypeNoteFacilityEvaluation noteNo InformationNortTemple University Hospital [facility] Other Evaluation note Note Date & TypeNoteFacilityEvaluation noteNo assessment information available [facility] Work Phone: Evaluation note Note Date & TypeNoteFacilityEvaluation note* Diagnosis Onset Date Resolution Status Admit Date Essential (primary) hypertension acuteSept2024 10:00amGeneralized anxiety disorderacuteSept2024 10:00amIron deficiency anemiaacuteSept2024 10:00am Screening mammogram for breast canceracuteSept2024 10:00amWellness examinationacuteSept2024 10:00am [facility] Work Phone: History general Narrative - Reported Note Date & TypeNoteFacilityHistory general Narrative - Reported* Type Description Date Surgical History tubal ligation [facility] Other Reason for referral (narrative) Note Date & TypeNoteFacilityReason for referral (narrative)No reason for referral information availableKettering Health [facility] Work Phone: Summary Purpose Family History No [...] and content) DATE CREATED AUTHOR 02/28/2018 [facility] DATE CREATED AUTHOR AUTHOR'S ORGANIZ ATION 01/07/2023 [facility] DATE CREATED AUTHOR AUTHOR'S ORGANIZ ATION 03/08/2024 [facility] DATE CREATED AUTHOR AUTHOR'S ORGANIZ ATION 08/28/2024 [facility] DATE CREATED AUTHOR AUTHOR'S ORGANIZ ATION 10/12/2024 [facility] REASON FOR VISIT (unrecogniz ed section and [...] BE BASED ON THE PRIMARY CLINICAL RECORDS. [facility] HospitalComputer Software Innovations [facility]. provides no warranty or guarantee of the accuracy or completeness of information in this document.
[2025-08-09 16:39] LABS: Hematocrit 40.7 % (36.0-48.0); Hemoglobin 13.8 g/dL (12.0-16.0); Immature Granulocytes Abs Auto 0.03 10^3/uL (0.00-0.03); Immature Granulocytes Pct Auto 0.3 % (0.0-0.5); Lymphocytes Absolute Auto 3.0 10^3/uL (1.2-3.8); Mean Corpuscular HGB Conc 33.9 g/dL (29.9-35.2); Mean Corpuscular Hemoglobin 29.3 pg (26.7-34.0); Mean Corpuscular Volume 86.4 fL (81.0-99.0); Platelet Count 366 10^3/uL (150-450); Red Blood Count 4.71 10^6/uL (4.20-5.40); White Blood Count 10.9 10^3/uL (4.0-11.0)
[2025-08-09 16:57] LABS: Iron 44.0 ug/dL (50.0-170.0); Percent Iron Saturation 11.7 %; Total Iron Binding Capacity 375.0 ug/dL (250.0-450.0)
[2025-08-09 17:10] LABS: Ferritin 18.0 ng/mL (8.0-252.0)
== END 2025-08-09 16:08 | disposition home or self-care (01) ==
LOC: LAB 16:08
PROVIDERS: PCP Family Medicine; Visit Provider Internal Medicine Hematology & Oncology
DX: D75.839 Thrombocytosis, unspecified (principal); D50.9 Iron deficiency anemia, unspecified; D72.829 Elevated white blood cell count, unspecified; K90.9 Intestinal malabsorption, unspecified
CPT/HCPCS: 36415; 82728; 83540; 83550; 85025

== ENCOUNTER 2025-08-30 07:44 | Outpatient (RCR) | payer OTHER, SELFPAY ==
[2025-08-23 08:00] VITALS: BP 113/78; PULSE 94; TEMP 36.6; O2SAT 95
[2025-08-23] MEDS: FERRIC CARBOXYMALTOSE 750 MG in 0.9 % SODIUM CHLORIDE 250 ML 795 MG IV (08:17)
[2025-08-30 07:55] VITALS: BP 120/80; PULSE 88; TEMP 36.6; O2SAT 98
[2025-08-30] MEDS: FERRIC CARBOXYMALTOSE 750 MG in 0.9 % SODIUM CHLORIDE 250 ML 795 MG IV (08:05)
== END 2025-09-04 23:59 | disposition home or self-care (01) ==
LOC: HEMC 07:44
PROVIDERS: PCP Family Medicine; Visit Provider Internal Medicine Hematology & Oncology
DX: D50.9 Iron deficiency anemia, unspecified (principal); D75.839 Thrombocytosis, unspecified; D72.829 Elevated white blood cell count, unspecified; K90.9 Intestinal malabsorption, unspecified
CPT/HCPCS: 96365; G0463; J1439